=== PATIENT | male | born 1950 | race Caucasian/White ===

== ENCOUNTER → 2022-09-04 13:18 | Outpatient (CLI) | payer MEDICARE, SELFPAY ==
[2022-09-04 13:31] LABS: Microscopic, Urine URINE MICROSCOPIC (MICROSCOPIC)
[2022-09-04 14:10] LABS: Appearance,Urine CLEAR (Clear); Bilirubin,Urine Negative (Negative); Blood, Urine Negative (Negative); Color,Urine YELLOW (Yellow); Glucose,Urine (UA) TRACE (Negative); Ketones,Urine Negative (Negative); Leukocyte Esterase,Urine Negative (Negative); Nitrate,Urine Negative (Negative); Protein,Urine Negative (Negative)
[2022-09-04 14:16] LABS: Basophils # 0.1 K/mm3 (0-0.2); Basophils % 0.6 % (0.1-2.0); Eosinophils # 0.3 K/mm3 (0.0-0.4); Hematocrit 42.6 % (42.0-52.0); Hemoglobin 13.5 g/dL (14.1-18.0); Lymphocytes # 2.8 K/mm3 (0.7-4.5); Lymphocytes % 36.6 % (10-50); Mean Corpuscular HGB Conc 31.7 g/dL (31.8-35.4); Mean Corpuscular Hemoglobin 29.5 pg (27.0-31.2); Mean Corpuscular Volume 92.9 fl (80-94); Mean Platelet Volume 9.6 fl (7.4-10.4); Monocytes # 0.7 K/mm3 (0.1-1.0); Monocytes % 8.5 % (1.7-9.3); Neutrophils # 3.9 K/mm3 (1.8-7.8); Neutrophils % 50.4 % (37.0-80.0); Platelet Count 189 K/mm3 (142-424); Red Blood Count 4.58 M/mm3 (4.60-6.20); Red Cell Distribution Width 13.5 % (11.5-17.5); White Blood Count 7.7 K/mm3 (4.8-10.8)
[2022-09-04 14:55] LABS: Albumin Level 4.3 g/dl (3.5-5.0); Anion Gap 12.5 mEq/L (5-15); Blood Urea Nitrogen 26 mg/dl (9-20); Calcium 9.3 mg/dl (8.4-10.2); Carbon Dioxide 29 mmol/L (22.0-30.0); Chloride 104 mmol/L (98-107); Estimated Glomerular Filt Rate 50 ml/min (>60); GFR (African American) 60 ML/MIN (>60); Glucose 189 mg/dl (74-100); Phosphorous 4.4 mg/dl (2.5-4.5); Potassium 4.5 mmoL/L (3.5-5.1); Sodium 141 mmol/L (136-145)
[2022-09-04 17:56] LABS: Creatinine,Urine Random 126 mg/dL (Not Estab.)
== END ==
PROVIDERS: PCP Internal Medicine Nephrology; Visit Provider Pediatrics
DX: N28.9 Disorder of kidney and ureter, unspecified (principal)
CPT/HCPCS: 36415; 80069; 81001; 82570; 84155; 85025

== ENCOUNTER 2023-01-18 15:28 | Emergency (ER) | payer MEDICARE, SELFPAY ==
[2023-01-18 16:24] VITALS: BP 147/84; PULSE 89; RESP 18; TEMP 37.9; O2SAT 92; BMI 40.1
--- NOTE | 2023-01-18 16:26 | XR_ITS ---
PROCEDURE INFORMATION: Exam: XR Chest Exam date and time: 01/18/2023 4:26 PM Age: 72 years old Clinical indication: Cough; Additional info: Cough and SOB. Former smoker for 25 yrs. TECHNIQUE: Imaging protocol: Radiologic exam of the chest. Views: 2 views. COMPARISON: No relevant prior studies available. FINDINGS: Lungs: Unremarkable. No consolidation. Pleural spaces: Unremarkable. No pleural effusion. No pneumothorax. Heart/Mediastinum: Unremarkable. No cardiomegaly. Bones/joints: Unremarkable. IMPRESSION: No acute findings.
--- NOTE | 2023-01-18 16:27 | EXP.UTC ---
Discharge Plan Disposition Patient Disposition: Home, Self-Care Condition: Good Prescriptions Prescriptions: New benzonatate [benzonatate] 100 mg capsule 100 mg PO TIDP PRN (Reason: Cough) Qty: 30 0RF amoxicillin-pot clavulanate 875-125 mg Tablet 1 tab PO Q12H Qty: 20 0RF methylprednisolone 4 mg Tablets,Dose Pack 4 mg PO DIRECTED Qty: 21 0RF guaifenesin [Mucinex] 600 mg tablet extended release 12hr 600 - 1,200 mg PO BIDP PRN (Reason: Congestion) Qty: 30 0RF Referrals Follow up/Referrals: Nusrat Lamb APRN [Primary Care Provider] - See instructions Activity Restrictions/Add. Instructions Additional Instructions/Restrictions: Take tylenol for pain or fever. Take the medications as directed. Follow up with your regular doctor for a recheck on Saturday. GO TO THE ER FOR ANY WORSENING SYMPTOMS Clinical Impressions Clinical Impression: Acute bronchitis, Otitis media Instructions Patient Instructions: Middle Ear Infection, DI for Acute Bronchitis Discharge ED Provider: Tanvir Estrada [facility] General Stated complaint: fever, cough, cecilia Time Seen by Provider: 01/18/23 16:27 History of Present Illness Provider Complaint: He states that for the past 4 days he has had worsening chest and sinus congestion, bilateral ear pain, and a productive cough with yellowish sputum. He has had a low grade fever also. He denies any body aches. Related Data Previous Rx's Medication Instructions Recorded amoxicillin 875 mg-potassium 1 tab PO Q12H #20 tabs 01/18/23 clavulanate 125 mg tablet benzonatate 100 mg capsule 100 mg PO TIDP PRN Cough #30 caps 01/18/23 guaifenesin 600 mg tablet, 600 - 1,200 mg PO BIDP PRN 01/18/23 extended release 12 hr (Mucinex) Congestion #30 tabs methylprednisolone 4 mg tablets in 4 mg PO DIRECTED #21 tabs 01/18/23 a dose pack Allergies Allergy/AdvReac Type Severity Reaction Status Date / Time triethanolamine AdvReac Mild Rash Verified 01/18/23 16:37 [From Cerumenex] [facility] Disclaimer: The information contained in this section may have been updated after the patient was seen, as this information can be updated by other users. Social History Smoking Status: Former smoker alcohol intake: never current occupational status: retired Travel in the last 8 weeks: None ROS Obtained: Yes All systems reviewed & no additional complaints except as documented Constitutional Constitutional: Reports poor appetite Eyes Eyes: Reports system reviewed and no additional complaints, except as documented ENT Ears, Nose, Mouth, and Throat: Reports as per HPI Cardiovascular Cardiovascular: Reports system reviewed and no additional complaints, except as documented and Denies chest pain Respiratory Respiratory: Denies shortness of breath, Reports chest congestion, Reports cough, Denies stridor and Denies wheezing Gastrointestinal Gastrointestingal: Reports system reviewed and no additional complaints, except as documented; Denies abdominal pain, diarrhea or vomiting Musculoskeletal Musculoskeletal: Reports system reviewed and no additional complaints, except as documented and Denies arthralgias Integumentary/Breasts Skin/Breast: Reports system reviewed and no additional complaints, except as documented and Denies rash Neurologic Neurologic: Denies paresthesias Allergic/Immunologic Allergic/Immunologic: Denies wheezing Physical Exam General General appearance: alert and in no apparent distress Head Head exam: atraumatic, normocephalic and normal inspection Eye Eye exam: Present normal appearance, PERRL and EOMI ENT ENT exam: Present mucous membranes moist and normal external ear exam Expanded ENT Exam TM/Canal exam: Bilateral TM: erythema, bulging and effusion Nose exam: Absent sinus tenderness Nasal speculum exam: Bilateral: normal Mouth exam: Present normal external inspection; Absent drooling Teeth exam: Present normal inspection Throat exam: P
[2023-01-18 17:24] VITALS: BP 147/84; PULSE 89; RESP 18; TEMP 37.4; O2SAT 94
== END 2023-01-18 17:24 | disposition home or self-care (01) ==
PROVIDERS: Emergency Provider Nurse Practitioner Family; PCP Nurse Practitioner
DX: J20.9 Acute bronchitis, unspecified (principal); H66.93 Otitis media, unspecified, bilateral; R50.9 Fever, unspecified; R05.9 Cough, unspecified; R09.81 Nasal congestion; R09.89 Other specified symptoms and signs involving the circulatory and respiratory systems; Z87.891 Personal history of nicotine dependence
CPT/HCPCS: 71046; 87635; 99204; 99212; G0463

== ENCOUNTER 2023-03-01 13:42 | Emergency (ER) | payer MEDICARE, SELFPAY ==
[2023-03-01 14:05] VITALS: BP 138/71; PULSE 73; RESP 20; TEMP 36.7; O2SAT 96; BMI 39.9
--- NOTE | 2023-03-01 14:11 | ED_ITS ---
Discharge Plan Disposition Patient Disposition: Home, Self-Care Condition: Good Prescriptions Prescriptions: No Action benzonatate [benzonatate] 100 mg capsule 100 mg PO TIDP PRN (Reason: Cough) Qty: 30 0RF amoxicillin-pot clavulanate 875-125 mg Tablet 1 tab PO Q12H Qty: 20 0RF methylprednisolone 4 mg Tablets,Dose Pack 4 mg PO DIRECTED Qty: 21 0RF guaifenesin [Mucinex] 600 mg tablet extended release 12hr 600 - 1,200 mg PO BIDP PRN (Reason: Congestion) Qty: 30 0RF Referrals Follow up/Referrals: Elan Fields DO [Staff Physician] - See instructions Sean Dotson [Primary Care Provider] - See instructions Activity Restrictions/Add. Instructions Additional Instructions/Restrictions: Rest the extremity, apply ice for 15 minutes as tolerated three or four times per day, Elevate the extremity as tolerated while you are resting. Take tylenol or ibuprofen for pain. Follow up with Dr. Fields (orthopedics). I put in a referral but you need to call his office and schedule an appointment. Follow up with your regular doctor. GO TO THE ER FOR ANY WORSENING SYMPTOMS Clinical Impressions Clinical Impression: Right knee sprain Instructions Patient Instructions: How to Use Crutches, Knee Sprain, DI for Knee Sprain, How to Use a Knee Immobilizer Discharge ED Provider: Tanvir Estrada [facility] General Stated complaint: AO Fell, Pain in R knee Time Seen by Provider: 03/01/23 14:11 History of Present Illness Provider Complaint: He states that he stepped on an uneven floor and it caused him to fall. He came down on his right knee. He c/o right knee pain. He denies any other injury. Related Data Previous Rx's Medication Instructions Recorded amoxicillin 875 mg-potassium 1 tab PO Q12H #20 tabs 01/18/23 clavulanate 125 mg tablet benzonatate 100 mg capsule 100 mg PO TIDP PRN Cough #30 caps 01/18/23 guaifenesin 600 mg tablet, 600 - 1,200 mg PO BIDP PRN 01/18/23 extended release 12 hr (Mucinex) Congestion #30 tabs methylprednisolone 4 mg tablets in 4 mg PO DIRECTED #21 tabs 01/18/23 a dose pack Allergies Allergy/AdvReac Type Severity Reaction Status Date / Time triethanolamine AdvReac Mild Rash Verified 01/18/23 16:37 [From Cerumenex] [facility] Disclaimer: The information contained in this section may have been updated after the patient was seen, as this information can be updated by other users. Medical History (Updated 03/01/23 @ 15:52 by Tanvir Estrada APRN) Anxiety Depression Diabetes mellitus, type 2 History of gastroesophageal reflux (GERD) Hyperlipidemia Hypertension Surgical History (Updated 03/01/23 @ 14:14 by Janel Higgins RN) History of cardiac cath History of cholecystectomy Social History (Updated 01/18/23 @ 17:32 by Tanvir Estrada APRN) Smoking Status: Former smoker alcohol intake: never current occupational status: retired Travel in the last 8 weeks: None ROS Obtained: Yes All systems reviewed & no additional complaints except as documented Constitutional Constitutional: Denies chills and Denies fever(s) Eyes Eyes: Denies eye discharge ENT Ears, Nose, Mouth, and Throat: Denies dizziness, Denies otalgia and Denies sore throat Cardiovascular Cardiovascular: Denies chest pain Respiratory Respiratory: Denies shortness of breath, Denies chest congestion, Denies cough, Denies stridor and Denies wheezing Gastrointestinal Gastrointestingal: Denies nausea or vomiting Musculoskeletal Musculoskeletal: Reports as per HPI Integumentary/Breasts Skin/Breast: Denies rash Neurologic Neurologic: Denies dizziness and Denies paresthesias Allergic/Immunologic Allergic/Immunologic: Denies wheezing Physical Exam General General appearance: alert and in no apparent distress Head Head exam: atraumatic, normocephalic and normal inspection Eye Eye exam: Present normal appearance, PERRL and EOMI ENT ENT exam: Present normal exam, normal oropharynx, mucous membranes moist, TM's normal bilaterally and normal external ear exam Neck Neck exam: Present normal inspection, full ROM and trachea midline; Absent meningismus or lymphadenopathy Chest Chest inspection: Present normal inspection and symmetric chest wall rise; Absent tenderness Respiratory Respiratory exam: Present normal lung sounds bilaterally; Absent respiratory distress Cardiovascular Cardiovascular exam: Present regular rate and normal rhythm; Absent JVD Abdominal Exam Abdominal exam: Present soft and normal bowel sounds; Absent distention, tenderness or guarding Extremities Exam Extremities exam: Present normal capillary refill; Absent calf tenderness Expanded Lower Extremity Exam Right: Hip/Pelvis exam: Present normal inspection and full ROM; Absent tenderness Upper leg exam: Present normal inspection and full ROM; Absent tenderness Knee exam: Present tenderness, swelling and knee extension intact; Absent abrasion, laceration, ecchymosis, deformity, crepitus, dislocation, erythema, effusion, anterior drawer sign, posterior draw sign, pain with valgus, laxity with valgus, pain with varus or laxity with varus Lower leg exam: Present normal inspection and full ROM; Absent tenderness Ankle exam: Present normal inspection and full ROM; Absent tenderness Foot/toe exam: Present normal inspection and full ROM; Absent tenderness Neurovascular/Tendon exam: Present normal capillary refill; Absent pulse deficit, motor deficit, sensory deficit, tendon deficit or extremity cold to touch Gait: observed and limited by pain Back Exam Back exam: Present normal inspection; Absent tenderness Neurological Exam Neurological exam: Present alert and oriented X3 Psychiatric Psychiatric exam: Present normal affect and normal mood Skin Skin exam: Present warm, dry, intact and normal color Lymphatic Lymphatic Findings: no adenopathy Medical Decision Making Medical Records Medical records reviewed: No I reviewed the patient's medical records. Roberto Inquiry Pt receiving controlled substance: No Radiology Data #1: Image(s): Knee Image Reviewed: Yes I reviewed the patient's radiology image and Yes I have reviewed radiologist's interpretation Preliminary Findings: No Fracture Seen FINAL REPORT CLINICAL HISTORY: Right knee pain after fall COMPARISON: None FINDINGS: Three views of the right knee reveal no evidence of fracture or dislocation. The bony alignment is normal. There is mild degenerative change. There is no evidence of joint effusion. Vascular calcifications are noted. No acute localized soft tissue abnormality is identified. IMPRESSION: No acute abnormality identified. Reviewed, Interpreted and Dictated by Edwin Rehman III, MD Transcribed by Shantel Duque Authenticated and [facility] Procedures Risk/Benefits of Procedure(s) Were Explained: Yes Orthopedic Splinting/Casting Injury #1: Side: right Lower Extremity Injury Location: knee Lower Extremity Immobilizer: knee immobilizer Other Orthopedic Equipment: crutches Post Cast/Splinting Neuro Status: intact and no change Post Cast/Splinting Vasc Status: intact and no change
[2023-03-01 15:40] VITALS: BP 138/71; PULSE 73; RESP 20; TEMP 36.7; O2SAT 96
== END 2023-03-01 15:58 | disposition home or self-care (01) ==
PROVIDERS: Emergency Provider Nurse Practitioner Family; PCP Pediatrics
DX: S83.91XA Sprain of unspecified site of right knee, initial encounter (principal); E11.9 Type 2 diabetes mellitus without complications; I10 Essential (primary) hypertension; E78.5 Hyperlipidemia, unspecified; K21.9 Gastro-esophageal reflux disease without esophagitis; Z87.891 Personal history of nicotine dependence; W19.XXXA Unspecified fall, initial encounter
CPT/HCPCS: 73562; 99212; 99214; G0463

== ENCOUNTER 2023-05-09 10:00 | Outpatient (RCR) | payer MEDICARE, SELFPAY | END 2023-05-09 11:15 | disposition home or self-care (01) | LOC: PT 10:00 | PROVIDERS: PCP Nurse Practitioner; Visit Provider Nurse Practitioner | DX: M54.42 Lumbago with sciatica, left side (principal); M54.41 Lumbago with sciatica, right side | CPT/HCPCS: 97110; 97112; 97116; 97163; 97164; 97530 ==

== ENCOUNTER 2023-05-14 08:56 | Outpatient (CLI) | payer MEDICARE, SELFPAY ==
--- NOTE | 2023-05-14 09:04 | XR_ITS ---
FINAL REPORT CLINICAL HISTORY: Rt Hand Pain..rt 3rd finger x 1 month FINDINGS: Right hand Three views were obtained. There is no acute fracture or dislocation. There is mild DIP and PIP joint space narrowing. There is soft tissue swelling over the dorsum of the hand. There are advanced hypertrophic changes at the basilar joint with subluxation of the 1st carpometacarpal joint. No soft tissue abnormality is identified. IMPRESSION: Degenerative changes as detailed above. Reviewed, Interpreted and Dictated by Tarik Thomas MD Transcribed by Arabella Ledezma Authenticated and [facility]
== END 2023-05-14 23:59 ==
LOC: RAD 08:57
PROVIDERS: PCP Internal Medicine; Visit Provider Orthopaedic Surgery
DX: M79.641 Pain in right hand (principal)
CPT/HCPCS: 73130

== ENCOUNTER 2024-03-19 13:32 | Outpatient (CLI) | payer MEDICARE, SELFPAY ==
--- NOTE | 2024-03-19 13:39 | CA_ITS ---
APPROVED REPORT EXAM: Comprehensive 2D, Doppler, and color-flow Echocardiogram [employer] Porter: Dona Cooley RVT Ht: 5 ft 10 in Wt: 280lbs BSA: 2.41 BP: 138/84 mmHg Indications: MILD ,HTN, HLD, DM, TDE POOR U/S WINDOWS, LIMITED IMAGES 2D Dimensions IVSd 1.90 cm LVEF (Visual) 51.40 % PWd 1.12 cm LA Volume 29.40 mL LVDd 4.20 cm LA Volume Index 11.90 mL/m2 (M/F) 16-34 LVDs 3.11 cm M-Mode Dimensions LA Diam 3.86 cm (1.9-4.0) TAPSE 1.98 (<1.7) LV Diastology E Decel Time 193 (160-240 msec) E/A Ratio 0.73 Aortic Valve ANGELICA Index 0.51 cm2/m2 AoV Peak Cal. 269.0 (50-130 cm/s) AO Peak GR. 29.00 mmHg AO Mean GR. 17.70 (<5 mmHg) AO VTI 63.3 (18-25 cm) ANGELICA (VTI) 1.25 (2.5-4.5 cm2) Mitral Valve MV E Max Cal. 69.0 (40-130 cm/s) MV A Velocity 96.0 (40-130 cm/s) E/A Ratio 0.73 MV PHT 57.0 ms Pulmonary Valve PV Peak Velocity 69.0 (50-150 cm/s) Tricuspid Valve TR P. Velocity 216.00 cm/s RAP Estimate 10.00 mmHg RVSP 28.60 mmHg Left Ventricle The left ventricle is normal size. The left ventricular systolic function is low normal. There is increased LV wall thickness. There is normal LV segmental wall motion. Transmitral Doppler flow pattern suggests impaired LV relaxation. LVEF is 50%. Right Ventricle The right ventricle is normal size. The right ventricular systolic function is normal. Atria The left atrium size is normal. The right atrium size is normal. There is no Doppler evidence of interatrial shunt. Aortic Valve Aortic valve is moderately thickened. Mild to moderate aortic stenosis. ANGELICA by continuity equation is 1.5 cm2. Peak velocity 2.8 m/s. Mean AV gradient 14 mmHg. Max AV gradient 25 mmHg. Trace aortic regurgitation. Mitral Valve The mitral valve leaflets are mildly thickened. Trace mitral regurgitation. No evidence of mitral valve stenosis. Tricuspid Valve Tricuspid valve is grossly normal in structure and function. Trace tricuspid regurgitation. There is insufficient TR jet to estimate RVSP. Pulmonic Valve The pulmonary valve is normal in structure. Trace pulmonic regurgitation. The ascending aorta is not well-visualized. Great Vessels The aortic root is normal in size. IVC is normal in size and collapses >50% with inspiration. Pericardium There is no pericardial effusion. Other Information Study Quality: Technically Difficult Conclusion Technically difficult study due to poor acoustic windows. Low normal LV systolic function (LVEF 50%). Normal RV size and function. Mild to moderate (ANGELICA by continuity equation is 1.5 cm2. Peak velocity 2.8 m/s. Mean AV gradient 14 mmHg. Max AV gradient 25 mmHg). Electronically signed by : Zaida Nevarez MD 03/29/2024 19:37:18
== END 2024-03-19 23:59 | disposition home or self-care (01) ==
LOC: RT 13:35
PROVIDERS: PCP Nurse Practitioner; Visit Provider Nurse Practitioner
DX: I35.0 Nonrheumatic aortic (valve) stenosis (principal)
CPT/HCPCS: 93306

== ENCOUNTER 2024-09-07 09:42 | Outpatient (CLI) | payer MEDICARE, SELFPAY ==
--- OUTSIDE RECORDS SUMMARY | 2022-05-11 07:15 | XMS_ITS | Continuity of Care Document ---
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 Role Phone Yaw Kaiser MD Unavailable Unavailabl e Allergies, Adverse Reactions, Alerts Substance Reaction Status Criticality No Known Allergies Active No Inform ation Procedures Procedure Date OFFICE/OUTPATIENT VISIT, [facility] Advance Directives Directive Yes / No Effective Date File Name No Information Encounters Encounter Description Practice Location Reason(s) For Visit Diagnoses Date Provider Providers Copied on Encounter OFFICE/OUTPAT IENT VISIT, [facility], [address], [place], [place], [id number], tel:[phone] [facility] Leg Pain (chief complaint) Back Pain (chief complaint) Other intervertebral disc displacement, lumbar regionSpinal stenosis, lumbar region with neurogenic claudicationSci atica, left side 3 Job Campbell er. [address], [address], [place], [place], [id number] , [place]. tel:[phone] Referring Provider: Kane Brandt MD, [address], [place], [address]. tel:[phone] [facility], [address], [place], [place], [id number], [place] tel:[phone] [facility] Back pain Apr- 3 Job Campbell er. [address], [place], [place], [id number] , [place]. tel:[phone] Family History Family Member Type Diagnosis Age At Onset Father Problem (finding) Diabetes Mother Problem (finding) Diabetes Father Problem (finding) Congestive heart failur e Father Problem (finding) Hypertension Payers Payer name Insurance type Covered libertarian ID uJliet gunderson(s) [employer] Medicare Complete HMO [id number] Social History Type Description Quantity Date Captured Comments Alcohol Use Details Caffeine Use Details Tobacco Use Status Current non-smoker Smoking Status Former smoker Non-Smoking Tobacco Use Details : No Details Available : No Details Available : No Details Available : No Details Available Sex Male Vital Signs Date / Time: Height Weight BMI Pulse Rate Blood Pressure Temperature Respiratory Rate Body Surface Area Head Circumference Head Circ. Percentile Wt./Rick. Percentile BMI percentile Pulse Ox Inhaled Ox 11:32 AM 70.00 in 113.398 kg (250.00 lbs) 35.8 7 kg/m amada (2) Chief Complaint And Reason For Visit From encounter dated '05/11/2022 11:15'. Leg Pain (chief complaint). Description: Severity level is 9. The problem is worsening. It occurs persistently. Location of pain is lower back, gluteal area, left flank, legs and thighs. Pain is radiated to the back and left thigh.The patient describes the pain as an ache, burning, discomforting, dull, numbness and throbbing. Symptoms are aggravated by bending, changing positions, daily activities, flexion, rolling over in bed, twisting, walking and Driving. Symptoms are relieved by over the counter medication: Tylenol and pain meds/drugs. Associated symptoms include decreased mobility, loss of balance, numbness in the left leg, spasms, tenderness, tingling in the legs and weakness in the left leg. Pertinent negatives include bladder incontinence, bowel incontinence, diarrhea and rash. Additional information: MRI@ - pt had ALLA done on Saturday, he could not tolerate the procedure and they did not finish it, done at . Back Pain (chief complaint) Reason For Referral Reason For Referral No Information Plan Of Treatment Date Type Action Status Referral Ordered: Lumbosacral Min 4 Views, Include Flexion/Extension, Not Obliques, Weight-Bearing ordered History Of Present Illness Encounter Date Complaint History Of Prese nt Illness Leg Pain Back Pain Functional Status Date Functional Assessmen t No Information Instructions Date Instruction Additional Infor rebecca Pt presents for prim lilibeth complaint of pain down the left leg and inability to walk/stand for long periods of time. He went to the ER 2 days ago for the severe pain. He was not able to tolerate and ALLA due to the pain.The following studies were independently reviewed and interpreted. Our interpretation follows below:MRI revealed L3-4 large central HNP with epidural lipomatosis and severe stenosisBased on MRI, clinical history and physical exam, we discussed management options. The patient is a candidate for an L3-4 hemilaminotomy via a left sided approach with discectomy. This would decompress the effected nerve roots. Due to severe pain and weakness this surgery is needed as soon as possible.Continued conservative measures discussed with patient vs surgical intervention. Surgical risks/benefits/alternatives were discussed. Options explained in detail to patient and all questions were answered. Patient elected to proceed with above surgery.Questions answered for patient who agrees with above treatment plan.He does have a history of cardiac cath and will need cardiac clearance. Related to Sciatica, left side Assessments Type Assessment Date assessment Other intervertebral disc displa cement, lumbar region assessment Spinal stenosis, lumbar region w ith neurogenic claudication assessment Sciatica, left side impression 1. L3-4 large centra l HNP with epidural lipomatosis and severe stenosis2. Left LE radiculopathy/neurogenic claudication Patient Care Teams Name Effective Dates (start - stop) Status Members No Information
--- OUTSIDE RECORDS SUMMARY | 2024-08-13 13:30 | XMS_ITS | Encounter Summary ---
Author Organization [facility] Address [address] [place] [address] Care Team Providers Care Shearing Supervisor Name Role Phone Nusrat Lamb APRN Primary Care Provider [phone] Reason for Visit * Reason Comments Medicare Wellness-subsequent Encounter Details Date Type Department Care Team (Late st Contact Info) Description 08/13/2024 1:30 PM EDT Office Visit [facility] [address] [place] [phone] Nusrat Lamb APRN [address] [place] [address] Type 2 diabetes mellitus with hyperglycemia, with long-term current use of insulin (Primary Dx); Benign prostatic hyperplasia with weak urinary stream; Coronary artery disease involving gila river coronary artery of gila river heart without angina pectoris; Gastric banding status; History of smoking; Mixed hyperlipidemia; Lumbar radiculopathy; Morbid (severe) obesity due to excess calories; Obstructive sleep apnea; Primary hypertension; Primary insomnia; Stage 3a chronic kidney disease; Valvular heart disease; Medicare annual wellness visit, subsequent; Prostate cancer screening; Gastroesophageal reflux disease without esophagitis; Spinal stenosis, lumbar region, with neurogenic claudication Social History Tobacco Use Types Packs/Day Years Used Date Smoking Tobacco: Former Cigarettes 1.4 49.9 0 02/19/1972 - 02/18/1998 Smokeless Tobacco: Never Alcohol Use Standard Drinks/Week Comments Not Currently 0 (1 standard drink = 0.6 oz pur e alcohol) [facility] Utilities Answer Date Recorded In the past 12 months has TOM[employer], oil, or water [employer] threatened to shut off services in your home? No 07/26/2024 Humiliation, Afraid, Rape, and Kick questionnair e Answer Date Recorded Within the last year, have y ou been afraid of your partner or ex-partner? No 07/26/2024 Within the last year, have y ou been humiliated or emotionally abused in other ways by your partner or ex-partner? No 07/26/2024 Physically Abused Not on file 07/26/2024 Within the last year, have y ou been raped or forced to have any kind of sexual activity by your partner or ex-partner? No 07/26/2024 Social Connection and Isolation Panel [NHANES] A nswer Date Recorded In a typical week, how many times do you talk on the phone with family, friends, or neighbors? Three times a week 07/26/2024 How often do you get togethe r with friends or relatives? Never 07/26/2024 How often do you attend chur or temple services? Never 07/26/2024 Do you belong to any clubs o r organizations such as denominational groups, unions, fraternal or athletic groups, or school groups? No 07/26/2024 How often do you attend meet ings of the clubs or organizations you belong to? Never 07/26/2024 Marital Status Not on file 07/26/2024 AUDIT-C Answer Date Recorded Q1: How often do you have a drink containing alcohol? Never 07/26/2024 Q2: How many drinks containi ng alcohol do you have on a typical day when you are drinking? Patient does not drink Frequency of Binge Drinking Not on file 09/2024 Overall Financial Resource Strain (CARDIA) Answe r Date Recorded How hard is it for you to pa y for the very basics like food, housing, medical care, and heating? Somewhat hard 07/26/2024 PHQ-2 Answer Date Recorded Retired PHQ-9: Brief Depression Severity Measure Score 0 10/04/2022 [facility] [place] [facility] - Occupational Stress Questionnaire Answer Date Recorded Do you feel stress - tense, restless, nervous, or anxious, or unable to sleep at night because your mind is troubled all the time - these days? Rather much 07/26/2024 Exercise Vital Sign Answer Date Recorde d On average, how many days pe r week do you engage in moderate to strenuous exercise (like a brisk walk)? 1 day Minutes of Exercise per Session Not on file 07/26/2024 Hunger Vital Sign Answer Date Recorded Within the past 12 months, y ou worried that your food would run out before you got the money to buy more. Never true 07/27/19 25 Within the past 12 months, t he food you bought just didn't last and you didn't have money to get more. Never true 07/26/2024 PRAPARE - Transportation Answer Date Re corded In the past 12 months, has l ack of transportation kept you from medical appointments or from getting medications? Yes 09/2024 In the past 12 months, has l ack of transportation kept you from meetings, work, or from getting things needed for daily living? No 07/26/2024 Housing Stability Vital Sign Answer Josef e Recorded In the last 12 months, was t here a time when you were not able to pay the mortgage or rent on time? No 07/26/2024 In the past 12 months, how m any times have you moved where you were living? 0 07/26/2024 At any time in the past 12 m [facility], were you homeless or living in a senior living (including now)? No 07/26/2024 Housing Stability Answer Date Recorded Current Living Arrangements home 05/2024 Potentially Unsafe Housing Conditions Not on wilberto e 03/24/2024 Amb Case Mgmt Answer Date Recorded Help with Reading Health-Related Information occ asionally 07/26/2024 Problems Learning about Medical Condition never 07/26/2024 Confidence in Filling Out Forms by Self never 07/26/2024 Employment Answer Date Recorded Do you want help finding or keeping work or a job? I do not need or want help 07/26/2024 Disabilities Answer Date Recorded Difficulty Concentrating, Remembering or Making Decisions yes 07/26/2024 Difficulty Managing Errands Independently no 07/26/2024 PHQ-2 Answer Date Recorded Patient Health Questionnaire-2 Score 0 08/13/2024 Sex and Gender Information Value Date Recorded Sex Assigned at Male 04/20/2023 11:33 AM EST Legal Sex Male 10:45 AM EDT Gender Identity Male 04/20/2023 11:33 AM EST Sexual Orientation Not on file documented as of this encounter Last Filed Vital Signs Vital Sign Reading Time Taken Comments Blood Pressure 122/74 08/13/2024 1:18 PM EDT Pulse 92 08/13/2024 1:18 PM EDT Temperature 37.2 C (99 F) 08/13/2024 1:18 PM EDT Respiratory Rate 18 08/13/2024 1:18 PM EDT Oxygen Saturation 98% 08/13/2024 1:18 PM EDT Inhaled Oxygen Concentration - - Weight 126 kg (278 lb) 08/13/2024 1:18 PM EDT Height 177.8 cm (5' 10 ) 08/13/2024 1:18 PM EDT Body Mass Index 39.89 08/13/2024 1:18 PM EDT documented in this encounter Functional Status documented as of this encounter Progress Notes * Nusrat Lamb APRN - 08/24/2024 10:13 PM EDTAssociated Problem(s): Spinal stenosis, lumbar region, with neurogenic claudication He has been evaluated by neurosurgery and pain management for his spinal stenosis. Neurosurgery wanted to avoid surgical intervention due to his weight and uncontrolled A1c, per their report based off of his MRI he does have some advanced level degenerative changes in the L3-4 facets. He was subsequently referred to physical therapy which has helped his pain and mobility issues significantly. * Nusrat Lamb APRN - 08/24/2024 10:13 PM EDTAssociated Problem(s): Lumbar radiculopathy Patient was followed and approved for neurosurgery prior to leaving [place]. MRI reviewed in officetoday showing L3-5 circumferential disc bulging, ligamentum flavum infolding and facet arthropathy contributing to left subarticular zone impingement of the traversing L5 nerve root, mild spinal canal stenosis and mild bilateral neural foraminal stenosis. Was evaluated by neurosurgery at [facility] who declined surgery at this time, receiving benefit from pain management * Nusrat Lamb APRN - 08/24/2024 10:12 PM EDTAssociated Problem(s): Type 2 diabetes mellitus with hyperglycemia, with long-term current use of insulin Patient has now established care with endocrinology. They added SGLT-2 jardiance at 10mg daily. Continued ozempic 1mg weekly, lantus 80mg nightly. Diabetic foot exam stable. No confirmed retinopathy * Nusrat Lamb APRN - 08/24/2024 10:10 PM EDTAssociated Problem(s): Stage 3a chronic kidney disease Patient has been followed by [facility] with a baseline creatinine noted timi 1.5-1.6 range, GFR 47. Rechecking metabolic panel today * Nusrat Lamb APRN - 08/24/2024 10:07 PM EDTAssociated Problem(s): Primary insomnia Longstanding pattern of insomnia, he is utilizing lorazepam nightly with good benefit for a number of years. He states that he is having some issues with his neuropathy in his feet worsening at bedtime but this will respond well to extra dose of lorazepam. He has experienced poor response in the past to medication such as trazodone, Ambien and Lunesta. Reviewed Roberto with satisfactory findings. He has controlled substance agreement and up-to-date UDS on file * Nusrat Lamb APRN - 08/24/2024 10:07 PM EDTAssociated Problem(s): Primary hypertension BP well controlled in office today, 122/74. Continue amlodipine 10mg daily, HCTZ 25mg daily, metoprolol 100mg BID * Nusrat Lamb APRN - 08/24/2024 10:06 PM EDTAssociated Problem(s): Obstructive sleep apnea Patient reports better compliance with PAP uses after getting a new, smaller PAP mask * Nusrat Lamb APRN - 08/24/2024 10:06 PM EDTAssociated Problem(s): Morbid (severe) obesity due to excess calories Patient's (Body mass index is 39.89 kg/m .) indicates that they are obese (BMI >30) with healthconditions that include obstructive sleep apnea, hypertension, coronary heart disease, diabetes piter itus, dyslipidemias, and GERD . Weight is unchanged. BMI is above average; BMI management plan is completed. We discussed portion control and increasing exercise. * Nusrat Lamb APRN - 08/24/2024 10:05 PM EDTAssociated Problem(s): Hyperlipidemia Patient continues to utilize daily fenofibrate 160mg and atorvastatin 40mg daily. Rechecking lipidstoday. * Nusrat Lamb APRN - 08/24/2024 10:04 PM EDTAssociated Problem(s): History of smoking Patient 1 pack/day smoker for 20 years, stopped in 1998 * Nusrat Lamb APRN - 08/24/2024 10:04 PM EDTAssociated Problem(s): GERD (gastroesophageal reflux disease) Patient's insurance stopped covering pantoprazole, subsequently he had developed heartburn. Insurance ultimately did approve restarting pantoprazole with complete resolution of his GERD * Nusrat Lamb APRN - 08/24/2024 10:01 PM EDTAssociated Problem(s): Coronary artery disease involving gila [place] coronary artery of gila river heart with out angina pectoris Cardiac catheterization Result Date: 03/31/2022 Chronic total occlusion to the LAD extending from the ostium to the distal vessel and fed by collaterals from the RCA Mild nonobstructive coronary artery disease involving the proximal LCx and proximal to mid RCA. Mildly elevated LVEDP at 24 mmHg Successful TR band closure to the right radial arterial access. * Nusrat Lamb APRN - 08/24/2024 10:01 PM EDTAssociated Problem(s): Benign prostatic hyperplasia with weak urinary stream Approximately one year ago patient had complaints of frequent nighttime urination, approximately 3-4 episodes. He also noted weak in urinary stream and urgency. He denies any feelings of urinary retention, hematuria or urinary obstruction. He was initiated on tamsulosin 0.5 mg nightly which she states has given him full resolution of his symptom * Nusrat Lamb APRN - 08/13/2024 1:30 PM EDT The ABCs of the Annual Wellness Visit Subsequent Medicare Wellness Visit Chief Complaint Patient presents with Medicare Wellness-subsequent Subjective History of Present Illness: Anthony Jacob is a 73 y.o. male who presents for a Subsequent Medicare Wellness Visit and annual physical exam. The following portions of the patient's history were reviewed and updated as appropriate: allergies, current medications, past family history, past medical history, past social history, past surgical history, and problem list. Compared to one year ago, the patient feels his physical health is better. Compared to one year ago, the patient feels his mental health is better. Recent Hospitalizations: He was not admitted to the hospital during the last year. Current Medical Providers: Patient Care Team: Nusrat Lamb APRN as PCP - General (Family Medicine) Sotero Dillon MD as Consulting Physician (Endocrinology) Shruthi Dubois, RN as Ambulatory Furnishings Conservator ([facility]) Shameka Redmond PA as Physician Conveyor Attendant (Endocrinology) Ivory Butterfield DPM (Podiatry) Stevan Ramey II, MD (Pain Medicine) Tricia Law APRN as Nurse Practitioner (Nurse Practitioner) Outpatient Medications Prior to Visit Medication Sig Dispense Refill amLODIPine (NORVASC) 10 MG tablet TAKE 1 TABLET EVERY DAY 90 tablet 3 aspirin 81 MG oral suspension atorvastatin (LIPITOR) 40 MG tablet TAKE 1 TABLET EVERY DAY 90 tablet 3 Blood Glucose Monitoring Suppl (D-Care Glucometer) w/Device kit 1 kit 3 (Three) Times a Day. Indications: may substitute for any glucometer kit that is approved and availabe 1 kit 0 Continuous Glucose Sensor (Dexcom G6 Sensor) Use Every 10 (Ten) Days. 3 each 2 empagliflozin (Jardiance) 10 MG tablet tablet Take 1 tablet by mouth Daily. 90 tablet 3 fenofibrate 160 MG tablet Take 1 tablet by mouth Daily. glipizide (GLUCOTROL) 10 MG tablet TAKE 1 TABLET TWICE DAILY BEFORE MEALS 180 tablet 3 hydroCHLOROthiazide 25 MG tablet TAKE 1 TABLET EVERY DAY 90 tablet 3 Insulin Glargine (Lantus SoloStar) 100 UNIT/ML injection pen Inject 80 Units under the skin into the appropriate area as directed Every Night. INJECT 60 TO 80 UNITS UNDER THE SKIN ONE TIME DAILY DIRECTED 15 mL 3 Lancets (onetouch ultrasoft) lancets Take blood sugar once daily E11.9 100 each 2 LORazepam (ATIVAN) 2 MG tablet TAKE 1 TABLET EVERY 6 HOURS NEEDED FOR ANXIETY 60 tablet 0 magnesium oxide (MAG-OX) 400 MG tablet Take 1 tablet by mouth 2 (Two) Times a Day. metoprolol tartrate (LOPRESSOR) 100 MG tablet Take 1 tablet by mouth Daily. (Patient taking differently: Take 1 tablet by mouth 2 (Two) Times a Day.) 30 tablet 2 multivitamin with minerals tablet tablet Take 1 tablet by mouth Daily. Centrum Senior GlucoRevive ([place] and cinnamon) nystatin (MYCOSTATIN) 060702 UNIT/GM cream APPLY TOPICALLY TO THE APPROPRIATE AREA DIRECTED 2 (TWO) TIMES A DAY. 30 g 11 olopatadine (PATANOL) 0.1 % ophthalmic solution Administer 1 drop to both eyes 2 (Two) Times a Day.5 mL 6 pantoprazole (PROTONIX) 40 MG EC tablet Take 1 tablet by mouth Daily. 90 tablet 1 pregabalin (LYRICA) 150 MG capsule TAKE 1 CAPSULE EVERY 12 HOURS 180 capsule 0 sertraline (ZOLOFT) 50 MG tablet TAKE 1 TABLET EVERY DAY 90 tablet 3 tamsulosin (FLOMAX) 0.4 MG capsule 24 hr capsule TAKE 1 CAPSULE EVERY DAY 90 capsule 3 tiZANidine (ZANAFLEX) 4 MG tablet TAKE 1 TABLET AT NIGHT NEEDED FOR MUSCLE SPASM(S) 90 tablet 3 glucose blood (True Metrix Blood Glucose Test) test strip TEST BLOOD SUGAR TWO TIMES DAILY 100 each2 Semaglutide, 1 MG/DOSE, (OZEMPIC) 2 MG/1.5ML solution pen-injector Inject 1 mg under the skin into the appropriate area as directed 1 (One) Time Per Week. 1.5 mL 3 No facility-administered medications prior to visit. No opioid medication identified on active medication list. I have reviewed chart for other potential high risk medication/s and harmful drug interactions in the elderly. Aspirin is on active medication list. Aspirin use is indicated based on review of current medical condition/s. Pros and cons of this therapy have been discussed today. Benefits of this medication outweigh potential harm. Patient has been encouraged to continue taking this medication. . Patient Active Problem List Diagnosis Incomplete cauda equina syndrome Lumbar radiculopathy Type 2 diabetes mellitus with hyperglycemia, with long-term current use of insulin Stage 3a chronic kidney disease History of smoking Primary hypertension Hyperlipidemia Heart murmur Primary insomnia Spinal stenosis, lumbar region, with neurogenic claudication Fungal infection of the groin Obstructive sleep apnea Annual physical exam Aortic stenosis, mild Coronary artery disease involving gila river coronary artery of gila river heart without angina pectoris Other constipation Acute mucoid otitis media of both ears Yeast dermatitis Morbid (severe) obesity due to excess calories Benign prostatic hyperplasia with weak urinary stream Gastric banding status GERD (gastroesophageal reflux disease) Hip pain, right Osteoarthritis of hip Valvular heart disease Advance Care Planning Advance Directive is not on file. ACP discussion was held with the patient during this visit. Patient has an advance directive (not in EMR), copy requested. Review of Systems Constitutional: Negative for chills, fatigue and fever. HENT: Positive for hearing loss. Negative for trouble swallowing. Eyes: Negative for visual disturbance. Respiratory: Negative for cough and shortness of breath. Cardiovascular: Negative for chest pain, palpitations and leg swelling. Gastrointestinal: Negative for abdominal pain, constipation and diarrhea. Endocrine: Positive for polydipsia and polyuria. Genitourinary: Positive for genital sores. Negative for decreased urine volume, difficulty urinating, discharge and urgency. Musculoskeletal: Positive for arthralgias. Neurological: Positive for confusion. Negative for speech difficulty. Hematological: Does not bruise/bleed easily. Psychiatric/Behavioral: Negative for agitation, self-injury, sleep disturbance and suicidal ideas. The patient is not nervous/anxious. Objective Vitals: 08/13/24 1318 BP: 122/74 BP Location: Left arm Patient Position: Sitting Cuff Size: Adult Pulse: 92 Resp: 18 Temp: 99 ??F (37.2 ??C) TempSrc: Temporal SpO2: 98% Weight: 126 kg (278 lb) Height: 177.8 cm (70 ) Estimated body mass index is 39.89 kg/m?? as calculated from the following: Height as of this encounter: 177.8 cm (70 ). Weight as of this encounter: 126 kg (278 lb). Does the patient have evidence of cognitive impairment? No Physical Exam Vitals reviewed. Constitutional: Appearance: Normal appearance. HENT: Head: Normocephalic and atraumatic. Right Ear: Tympanic membrane, ear canal and external ear normal. Left Ear: Tympanic membrane, ear canal and external ear normal. Nose: Nose normal. Mouth/Throat: Mouth: Mucous membranes are moist. Pharynx: Oropharynx is clear. Eyes: Conjunctiva/sclera: Conjunctivae normal. Pupils: Pupils are equal, round, and reactive to light. Cardiovascular: Rate and Rhythm: Normal rate and regular rhythm. Heart sounds: Murmur heard. Pulmonary: Effort: Pulmonary effort is normal. Breath sounds: Normal breath sounds. Abdominal: General: Bowel sounds are normal. Palpations: Abdomen is soft. Tenderness: There is no abdominal tenderness. There is no guarding or rebound. Hernia: No hernia is present. Musculoskeletal: General: Normal range of motion. Cervical back: Neck supple. Skin: General: Skin is warm and dry. Capillary Refill: Capillary refill takes less than 2 seconds. Neurological: Mental Status: He is alert and oriented to person, place, and time. Psychiatric: Mood and Affect: Mood normal. Behavior: Behavior normal. Lab Results Component Value Date HGBA1C 9.0 (A) 08/13/2024 HEALTH RISK ASSESSMENT Smoking Status: Social History Tobacco Use Smoking Status Former Current packs/day: 0.00 Average packs/day: 1.4 packs/day for 49.9 years (69.5 ttl pk-yrs) Types: Cigarettes Start date: 02/19/1972 Quit date: 02/18/1998 Years since quittin.5 Smokeless Tobacco Never Alcohol Consumption: Social History Substance and Sexual Activity Alcohol Use Not Currently Fall Risk Screen: GARFIELD Fall Risk Assessment was completed, and patient is at MODERATE risk for falls. Assessment completed on:08/13/2024 Depression Screenin08/13/2024 1:19 PM PHQ-2/PHQ-9 Depression Screening Little interest or pleasure in doing things Not at all Feeling down, depressed, or hopeless Not at all How difficult have these problems made it for you to do your work, take care of things at home, or get along with other people? Not difficult at all Health Habits and Functional and Cognitive Screenin08/13/2024 1:19 PM Functional & Cognitive Status Do you have difficulty preparing food and eating? No Do you have difficulty bathing yourself, getting dressed or grooming yourself? No Do you have difficulty using the toilet? No Do you have difficulty moving around from place to place? No Do you have trouble with steps or getting out of a bed or a chair? No Current Diet Low Carb Diet Dental Exam Up to date Eye Exam Up to date Exercise (times per week) 0 times per week Current Exercises Include No Regular Exercise Do you need help using the phone? No Are you deaf or do you have serious difficulty hearing? No Do you need help to go to places out of walking distance? No Do you need help shopping? No Do you need help preparing meals? No Do you need help with housework? No Do you need help with laundry? No Do you need help taking your medications? No Do you need help managing money? No Do you ever drive or ride in a car without wearing a seat belt? No Have you felt unusual fatigue (could be tiredness), stress, anger or loneliness in the last month? No Who do you live with? Alone If you need help, do you have trouble finding someone available to you? No Have you been bothered in the last four weeks by sexual problems? No Do you have difficulty concentrating, remembering or making decisions? No Age-appropriate Screening Schedule: Refer to the list below for future screening recommendations based on patient's age, sex and/or medical conditions. Orders for these recommended tests are listed in the plan section. The patient has been provided with a written plan. Health Maintenance Topic Date Due Hepatitis B (1 of 3 - Risk 3-dose series) Never done ANNUAL WELLNESS VISIT 07/08/2024 LIPID PANEL 08/07/2024 ZOSTER VACCINE (2 of 2) 03/23/2025 (Originally 10/18/2022) COVID-19 Vaccine ( season) 2025 (Originally 10/20/2023) DIABETIC FOOT EXAM 10/09/2024 INFLUENZA VACCINE 11/18/2024 DIABETIC EYE EXAM 02/05/2025 HEMOGLOBIN A1C 02/12/2025 URINE MICROALBUMIN-CREATININE RATIO (uACR) 08/13/2025 COLORECTAL CANCER SCREENING 10/15/2025 TDAP/TD VACCINES (2 - Td or Tdap) 07/08/2033 HEPATITIS C SCREENING Completed Pneumococcal Vaccine 50+ Completed AAA SCREEN ONCE Completed Assessment & Plan [facility] Preventative Services Quick Reference Risk Factors Identified During Encounter Chronic Pain: Patient has responded well to gabapentin and PT Fall Risk-High or Moderate: Discussed Fall Prevention in the home The above risks/problems have been discussed with the patient. Follow up actions/plans if indicated are seen below in the Assessment/Plan Section. Pertinent information has been shared with the patient in the After Visit Summary. Diagnoses and all orders for this visit: 1. Type 2 diabetes mellitus with hyperglycemia, with long-term current use of insulin (Primary) Assessment & Plan: Patient has now established care with endocrinology. They added SGLT-2 jardiance at 10mg daily. Continued ozempic 1mg weekly, lantus 80mg nightly. Diabetic foot exam stable. No confirmed retinopathy Orders: - POC Glycosylated Hemoglobin (Hb A1C) - POC Albumin/Creatinine Ratio Urine - Cancel: Hemoglobin A1c; Future - glucose blood (True Metrix Blood Glucose Test) test strip; Use as instructed Dispense: 100 each; Refill: 2 - Insulin Pen Needle (Pen [place]) 31G X 8 MM misc; Use 1 Needle Daily. Dispense: 100 each; Refill:1 2. Benign prostatic hyperplasia with weak urinary stream Assessment & Plan: Approximately one year ago patient had complaints of frequent nighttime urination, approximately 3-4 episodes. He also noted weak in urinary stream and urgency. He denies any feelings of urinary retention, hematuria or urinary obstruction. He was initiated on tamsulosin 0.5 mg nightly which she states has given him full resolution of his symptom 3. Coronary artery disease involving gila [place] coronary artery of gila river heart without angina pectoris Assessment & Plan: Cardiac catheterization Result Date: 03/31/2022 Chronic total occlusion to the LAD extending from the ostium to the distal vessel and fed by collaterals from the RCA Mild nonobstructive coronary artery disease involving the proximal LCx and proximal to mid RCA. Mildly elevated LVEDP at 24 mmHg Successful TR band closure to the right radial arterial access. 4. Gastric banding status 5. History of smoking Assessment & Plan: Patient 1 pack/day smoker for 20 years, stopped in 1998 6. Mixed hyperlipidemia Assessment & Plan: Patient continues to utilize daily fenofibrate 160mg and atorvastatin 40mg daily. Rechecking lipidstoday. 7. Lumbar radiculopathy Assessment & Plan: Patient was followed and approved for neurosurgery prior to leaving [place]. MRI reviewed in officetoday showing L3-5 circumferential disc bulging, ligamentum flavum infolding and facet arthropathy contributing to left subarticular zone impingement of the traversing L5 nerve root, mild spinal canal stenosis and mild bilateral neural foraminal stenosis. Was evaluated by neurosurgery at [facility] who declined surgery at this time, receiving benefit from pain management 8. Morbid (severe) obesity due to excess calories Assessment & Plan: Patient's (Body mass index is 39.89 kg/m .) indicates that they are obese (BMI >30) with healthconditions that include obstructive sleep apnea, hypertension, coronary heart disease, diabetes piter itus, dyslipidemias, and GERD . Weight is unchanged. BMI is above average; BMI management plan is completed. We discussed portion control and increasing exercise. 9. Obstructive sleep apnea Assessment & Plan: Patient reports better compliance with PAP uses after getting a new, smaller PAP mask 10. Primary hypertension Assessment & Plan: BP well controlled in office today, 122/74. Continue amlodipine 10mg daily, HCTZ 25mg daily, metoprolol 100mg BID 11. Primary insomnia Assessment & Plan: Longstanding pattern of insomnia, he is utilizing lorazepam nightly with good benefit for a number of years. He states that he is having some issues with his neuropathy in his feet worsening at bedtime but this will respond well to extra dose of lorazepam. He has experienced poor response in the past to medication such as trazodone, Ambien and Lunesta. Reviewed Roberto with satisfactory findings. He has controlled substance agreement and up-to-date UDS on file 12. Stage 3a chronic kidney disease Assessment & Plan: Patient has been followed by [facility] with a baseline creatinine noted timi 1.5-1.6 range, GFR 47. Rechecking metabolic panel today 13. Valvular heart disease 14. Medicare annual wellness visit, subsequent - Cancel: Lipid Panel; Future - Cancel: TSH Rfx On Abnormal To Free T4; Future - Cancel: T4, Free; Future - Lipid Panel; Future - T4, Free; Future - TSH Rfx On Abnormal To Free T4; Future 15. Prostate cancer screening - Cancel: PSA Screen; Future - PSA Screen; Future 16. Gastroesophageal reflux disease without esophagitis Assessment & Plan: Patient's insurance stopped covering pantoprazole, subsequently he had developed heartburn. Insurance ultimately did approve restarting pantoprazole with complete resolution of his GERD 17. Spinal stenosis, lumbar region, with neurogenic claudication Assessment & Plan: He has been evaluated by neurosurgery and pain management for his spinal stenosis. Neurosurgery wanted to avoid surgical intervention due to his weight and uncontrolled A1c, per their report based off of his MRI he does have some advanced level degenerative changes in the L3-4 facets. He was subsequently referred to physical therapy which has helped his pain and mobility issues significantly. Other orders - valACYclovir (Valtrex) 1000 MG tablet; Take 1 tablet by mouth 3 (Three) Times a Day for 7 days. Dispense: 21 tablet; Refill: 0 Follow Up: Return in about 3 months (around 11/13/2024) for Next scheduled follow up. An After Visit Summary and PPPS were made available to the patient. documented in this encounter Plan of Treatment Upcoming Encounters Date Type Department Care Team (Late st Contact Info) Description 11/02/2024 11:15 AM EDT Office Visit [facility] [address] [facility] [place] [address] [place] [address] Shameka Redmond PA 3084 [facility] [address] [place], [place] [id number] 11/12/2024 1:30 PM EDT Office Visit [facility] PRIMARY CARE [address] [place] [phone] Nusrat Lamb APRN 6 [place] [address] 02/25/2025 11:00 AM EST Office Visit [facility] ENDOCRINOLOGY 3084 [facility] [address] [place] [address] Sotero Dillon MD 3084 [facility] [address] [place] [address] Scheduled Orders Name Type Priority Associated Diagnoses Orde r Schedule Lipid Panel Lab Routine Medicare annual wellness visit, subsequent Expected: 08/18/2024 (Approximate), Expires: 08/13/2025 PSA Screen Lab Routine Prostate cancer screening Expected: 08/18/2024 (Approximate), Expires: 08/13/2025 T4, Free Lab Routine Medicare annual wellness visit, subsequent Expected: 08/18/2024 (Approximate), Expires: 08/13/2025 TSH Rfx On Abnormal To Free T4 Lab Routine Medicare annual wellness visit, subsequent Expected: 08/18/2024 (Approximate), Expires: 08/13/2025 documented as of this encounter Procedures Procedure Name Priority Date/Time Associated Diagnosis Comments POC ALBUMIN/CREATININE RATIO Routine 08/13/2024 3:26 PM EDT Type 2 diabetes mellitus with hyperglycemia, with long-term current use of insulin POCT GLYCOSYLATED HEMOGLOBIN (HGB A1C) Routine 08/13/2024 1:27 PM EDT Type 2 diabetes mellitus with hyperglycemia, with long-term current use of insulin documented in this encounter Results * POC Albumin/Creatinine Ratio Urine (08/13/2024 3:26 PM EDT) POC ALBUMIN, URINE 10 mg/L POC CREATININE, URINE 50 mg/dL POC Urine Albumin Creatinine Ratio <30 <30 Lot Number [id number] Expiration Date Urine 08/13/2024 3:26 PM EDT us Nusrat Lamb APRN POINT OF CARE TEST ORDERABL ES Final Result * (ABNORMAL) POC Glycosylated Hemoglobin (Hb A1C) (08/13/2024 1:27 PM EDT) Hemoglobin A1C 9.0(A) 4.5 - 5.7 % [facility] Lot Number [id number] [facility] Expiration Date [facility] Blood 08/13/2024 1:27 PM EDT us Nusrat Lamb APRN POINT OF CARE TEST ORDERABL ES Final Result [facility]
[address] [place] [address], documented in this encounter Visit Diagnoses Diagnosis Type 2 diabetes mellitus with hyperglycemia, with long-term current use of insulin- Primary Benign prostatic hyperplasia with weak urinary stream Coronary artery disease involving [place] coronary artery of [place] heart without angina pectoris Gastric banding status Bariatric surgery status History of smoking Personal history of tobacco use, presenting hazards to health Mixed hyperlipidemia Lumbar radiculopathy Thoracic or lumbosacral neuritis or radiculitis, unspecified Morbid (severe) obesity due to excess calories Obstructive sleep apnea Obstructive sleep apnea (adult) (pediatric) Primary hypertension Unspecified essential hypertension Primary insomnia Persistent disorder of initiating or maintaining sleep Stage 3a chronic kidney disease Valvular heart disease Endocarditis, valve unspecified, unspecified cause Medicare annual wellness visit, subsequent Prostate cancer screening Special screening for malignant neoplasm of prostate Gastroesophageal reflux disease without esophagitis Esophageal reflux Spinal stenosis, lumbar region, with neurogenic claudication documented in this encounter Care Teams Shearing Supervisor Relationship Specialty Start Date End Date Nusrat Lamb APRN [address] [place] [id number] PCP - General Family Medicine 07/04/22 documented as of this encounter
--- OUTSIDE RECORDS SUMMARY | 2024-09-07 09:45 | XMS_ITS | Encounter Summary ---
Author Organization [facility] Address [address] [place] [address] Care Team Providers Care Boat Builder Name Role Phone Nusrat Lamb AGRICULTURE MANAGER Primary Care Provider [phone] Reason for Visit * Reason Comments Med Refill Encounter Details Date Type Department Care Team (Late st Contact Info) Description 08/12/2024 Refill [facility] PRIMARY CARE [address] [place] [phone] Nusrat Lamb, AGRICULTURE MANAGER [address] [place] [address] Type 2 diabetes mellitus with diabetic autonomic neuropathy, without long-term current use of insulin Social History Tobacco Use Types Packs/Day Years Used Date Smoking Tobacco: Former Cigarettes 1.4 49.9 0 02/19/1972 - 02/18/1998 Smokeless Tobacco: Never Alcohol Use Standard Drinks/Week Comments Not Currently 0 (1 standard drink = 0.6 oz pur e alcohol) [facility] Utilities Answer Date Recorded In the past 12 months has [facility] [employer], gas, oil, or water [employer] threatened to shut off services in your [...] 07/26/2024 How often do you attend chur ch or mormon services? Never 07/26/2024 Do you belong to any clubs o r organizations such as pentecostalism groups, unions, fraternal or athletic groups, or [...] Brief Depression Severity Measure Score 0 10/04/2022 [facility] - Occupational Stress Questionnaire Answer Date Recorded [...] any time in the past 12 m [facility], were you homeless or living in a [place] health care facility (including now)? No 07/26/2024 Housing Stability Answer [...] on file documented as of this encounter Miscellaneous Notes * Telephone Encounter - Ariana Scott MA - 08/12/2024 3:09 PM EDT CSA and appointments are up to date documented in this encounter Plan of Treatment Upcoming Encounters Date Type Department Care Team (Late st Contact Info) Description 11/02/2024 11:15 AM EDT Office Visit [facility] ENDOCRINOLOGY [address] [phone] Shameka Redmond PA [address] [id number] 11/12/2024 1:30 PM EDT Office Visit [facility] PRIMARY CARE [address] [place] [phone] Nusrat Lamb APRN 6 [place] [address] 02/25/2025 11:00 AM EST Office Visit [facility] ENDOCR[facility]OLOGY [address] [address] Sotero Dillon MD [address] [address] documented as of this encounter Visit Diagnoses Diagnosis Type 2 diabetes mellitus with diabetic autonomic neuropathy, without long-term current use of insulin documented in this encounter Care Teams Boat Builder Relationship Specialty Start Date End Date Nusrat Lamb APRN [address] [place] [address] PCP - General Family Medicine 07/04/22 documented as of this encounter
--- OUTSIDE RECORDS SUMMARY | 2024-09-07 09:45 | XMS_ITS | Encounter Summary ---
Author Organization [facility] Address [address] [place] [address] Care Team Providers Care Yard Foreman Name Role Phone Nusrat Lamb PATIENT'S LIBRARIAN Primary Care Provider [phone] Reason for Visit * Reason Comments Med Refill Encounter Details Date Type Department Care Team (Late st Contact Info) Description 12/25/2022 Refill [facility] PRIMARY CARE [address] [place] [phone] Nusrat Lamb, PATIENT'S LIBRARIAN [address] [place], [place] [id number] Anxiety Social History Tobacco Use Types Packs/Day Years Used Date Smoking Tobacco: Former Cigarettes 1 26 0 02/19/1972 - 02/18/1998 Smokeless Tobacco: Never Alcohol Use Standard Drinks/Week Comments Not Currently 0 (1 standard drink = 0.6 oz pur e alcohol) PHQ-2 Answer Date Recorded Retired PHQ-9: Brief Depression Severity Measure Score 0 10/04/2022 PHQ-2 Answer Date Recorded Retired PHQ-9: Brief Depression Severity Measure Score 0 10/04/2022 Sex and Gender Information Value Date Recorded Sex Assigned at Male 04/20/2023 11:33 AM EST Legal Sex Male 10:45 AM EDT Gender Identity Male 04/20/2023 11:33 AM EST Sexual Orientation Not on file documented as of this encounter Plan of Treatment Upcoming Encounters Date Type Department Care Team (Late st Contact Info) Description 11/02/2024 11:15 AM EDT Office Visit [facility] ENDOCRINOLOGY [address] [address] Shameka Redmond PA [address] [id number] 11/12/2024 1:30 PM EDT Office Visit [facility] PRIMARY CARE [address] [place] [phone] Nusrat Lamb APRN 6 [place] [address] 02/25/2025 11:00 AM EST Office Visit [facility] ENDOCRINOLOGY [address] [phone] Sotero Dillon MD [address] [address] documented as of this encounter Visit Diagnoses Diagnosis Anxiety Anxiety state, unspecified documented in this encounter Care Teams Yard Foreman Relationship Specialty Start Date End Date Nusrat Lamb APRN [address] [place] [address] PCP - General Family Medicine 07/04/22 documented as of this encounter
--- OUTSIDE RECORDS SUMMARY | 2024-09-07 09:45 | XMS_ITS | Encounter Summary ---
Author Organization [facility] Address [address] [place] [id number] Care Team Providers Care Asphalt Mixing Machine Operator Name Role Phone Nusrat Lamb HEALTH AND FITNESS PROFESSOR Primary Care Provider [phone] Reason for Visit * Reason Onset Date Comments MD LAMB MEDICATION CONCERN 07/20/2022 Encounter Details Date Type Department Care Team (Late st Contact Info) Description 07/20/2022 Telephone [facility] PRIMARY CARE [address] [place] [phone] Nusrat Lamb, HEALTH AND FITNESS PROFESSOR [address] [place] [address] MD LAMB MEDICATION CONCERN Social History Tobacco Use Types Packs/Day Years Used Date Smoking Tobacco: Never Smokeless Tobacco: Never Alcohol Use Standard Drinks/Week Comments Not Currently 0 (1 standard drink = 0.6 oz pur e alcohol) PHQ-2 Answer Date Recorded Retired PHQ-9: Brief Depression Severity Measure Score 6 07/04/2022 Sex and Gender Information Value Date Recorded Sex Assigned at Male 04/20/2023 11:33 AM EST Legal Sex Male 10:45 AM EDT Gender Identity Male 04/20/2023 11:33 AM EST Sexual Orientation Not on file documented as of this encounter Miscellaneous Notes * Telephone Encounter - Justin Rizzo RegSched Rep - 07/23/2022 11:18 AM EDT Caller: Anthony Jacob Relationship: Self Best call back number: [phone] Requested Prescriptions: Requested Prescriptions Pending Prescriptions Disp Refills LORazepam (Ativan) 0.5 MG tablet 30 tablet 0 Sig: Take 1 tablet by mouth Every 8 (Eight) Hours As Needed for Anxiety. glipizide (Glucotrol) 5 MG tablet 60 tablet 3 Sig: Take 1 tablet by mouth 2 (Two) Times a Day Before Meals. atorvastatin (Lipitor) 40 MG tablet 90 tablet 1 Sig: Take 1 tablet by mouth Daily. Pharmacy where request should be sent: [address] [place] [address] [facility] [phone] Last office visit with prescribing clinician: 07/04/2022 Last telemedicine visit with prescribing clinician: Visit date not found Next office visit with prescribing clinician: 10/04/2022 Additional details provided by patient: Does the patient have less than a 3 day supply: [x] Yes [] No Mely Xiao Rep 07/23/22 11:19 EDT * Telephone Encounter - Bev Vargas PCT - 07/20/2022 9:46 AM EDT Caller: Anthony Jacob Relationship: Self Best call back number: [phone] What medications are you currently taking: Current Outpatient Medications on File Prior to Visit Medication Sig Dispense Refill ??? amLODIPine (NORVASC) 10 MG tablet Take 1 tablet by mouth Daily. ??? aspirin 81 MG oral suspension ??? atorvastatin (Lipitor) 40 MG tablet Take 1 tablet by mouth Daily. 90 tablet 1 ??? Baclofen (LIORESAL) 5 MG tablet Take 1 tablet by mouth Every 8 (Eight) Hours. 90 tablet 0 ??? fenofibrate 160 MG tablet Take 1 tablet by mouth Daily. ??? glipizide (Glucotrol) 5 MG tablet Take 1 tablet by mouth 2 (Two) Times a Day Before Meals. 60 tablet 3 ??? hydroCHLOROthiazide (HYDRODIURIL) 25 MG tablet Take 1 tablet by mouth Daily. 90 tablet 2 ??? hydrOXYzine (ATARAX) 25 MG tablet Take 1 tablet by mouth Every 8 (Eight) Hours As Needed. for anxiety ??? Insulin Glargine (Lantus SoloStar) 100 UNIT/ML injection pen 60-80 units once daily E11.9 15 mL2 ??? LORazepam (Ativan) 0.5 MG tablet Take 1 tablet by mouth Every 8 (Eight) Hours As Needed for Anxiety. 30 tablet 0 ??? metoprolol tartrate (LOPRESSOR) 100 MG tablet Take 1 tablet by mouth Daily. ??? pantoprazole (PROTONIX) 40 MG EC tablet Take 1 tablet by mouth Daily. ??? pregabalin (LYRICA) 150 MG capsule Take 1 capsule by mouth Every 12 (Twelve) Hours. ??? sertraline (ZOLOFT) 50 MG tablet ??? traMADol (ULTRAM) 50 MG tablet Take 1 tablet by mouth Every 6 (Six) Hours As Needed for Severe Pain. 60 tablet 0 No current facility-administered medications on file prior to visit. Which medication are you concerned about: sertraline (ZOLOFT) 50 MG tablet What are your concerns: PATIENT HAS BEEN GETTING A LOT OF BAD NEWS LATELY AND WOULD LIKE TO INCREASE DOSAGE TO 100 MG documented in this encounter Plan of Treatment Upcoming Encounters Date Type Department Care Team (Late st Contact Info) Description 11/02/2024 11:15 AM EDT Office Visit [facility] ENDOCRINOLOGY [address] [address] Shameka Redmond, NOMAN [address] [address] 11/12/2024 1:30 PM EDT Office Visit [facility] PRIMARY CARE [address] [place] [address] [place] [address] Nusrat Lamb APRN [address] [place] [address] 02/25/2025 11:00 AM EST Office Visit [facility] ENDOCR[facility]OLOG[facility] [address] [phone] Sotero Dillon MD [address] [id number] documented as of this encounter Visit Diagnoses Diagnosis Primary insomnia Persistent disorder of initiating or maintaining sleep documented in this encounter Additional Health Concerns Assessment Noted Time PHQ-2 Depression Total Score: 4 07/05/19 23 1:22 PM EDT documented as of this encounter Care Teams Asphalt Mixing Machine Operator Relationship Specialty Start Date End Date Nusrat Lamb, HEALTH AND FITNESS PROFESSOR [address] [place] [address] PCP - General Family Medicine 07/04/22 documented as of this encounter
--- OUTSIDE RECORDS SUMMARY | 2024-09-07 09:45 | XMS_ITS | Encounter Summary ---
Author Organization [facility] Address [address] [place] [address] Care Team Providers Care Page Designer Name Role Phone Zainab Nusrat Camacho APRN Primary Care Provider [phone] Encounter Details Date Type Department Care Team (Late st Contact Info) Description 08/10/2024 Patient Outreach [facility] CASE MANAGEMENT Shruthi Odonnell, RN [address] [place] [address] Social History Tobacco Use Types Packs/Day Years Used Date Smoking Tobacco: Former Cigarettes 1.4 49.9 0 02/19/1972 - 02/18/1998 Smokeless Tobacco: Never Alcohol Use Standard Drinks/Week Comments Not Currently 0 (1 standard drink = 0.6 oz pur e alcohol) [facility] Utilities Answer Date Recorded In the past 12 months has [facility] [employer], gas, oil, or water [employer] threatened to shut off services in your [...] often do you attend chur ch or catholic services? Never 07/26/2024 Do you belong to any clubs o r organizations such as christian groups, unions, fraternal or athletic groups, or [...] Brief Depression Severity Measure Score 0 10/04/2022 [facility] - Occupational Stress Questionnaire Answer [...] any time in the past 12 m [facility], were you homeless or living in a long term (including now)? No 07/26/2024 Housing Stability Answer [...] Date Recorded Patient Health Questionnaire-2 Score 0 04/23/2024 Sex and Gender Information Value Date Recorded Sex Assigned at Male 04/20/2023 11:33 AM EST Legal Sex Male 10:45 AM EDT Gender Identity Male 04/20/2023 11:33 AM EST Sexual Orientation Not on file documented as of this encounter Miscellaneous Notes * Outreach Note - Shruthi Dubois RN - 08/10/2024 10:11 AM EDT Images from the original note were not included. AMBULATORY CASE MANAGEMENT NOTE Names and Relationships of Patient/Support Persons: Contact: Anthony Jacob; Relationship: Self - Patient Outreach RN-ACM brief outreach with patient engaged in High Risk Case Management. Patient has been working toward lowering his A1c. Patient reported no concerns at this time. He was traveling at the time of our call. RN-ACM will contact patient another day. A1C Last 3 Results 10/10/2023 12:03 01/20/2024 14:11 04/23/2024 10:50 HGBA1C Last 3 Results Hemoglobin A1C 9.2 11.0 9.7 Shruthi Caro Ambulatory Case Management 08/10/2024, 10:12 EDT documented in this encounter Plan of Treatment Upcoming Encounters Date Type Department Care Team (Late st Contact Info) Description 11/02/2024 11:15 AM EDT Office Visit [facility] END[facility]OLOG[facility] 30[address] [facility] [address] [address] Shameka Redmond PA [address] [address] 11/12/2024 1:30 PM EDT Office Visit [facility] PRIMARY CARE [address] [place] [phone] Nusrat Lamb, WALLPAPER HANGER [address] [place] [address] 02/25/2025 11:00 AM EST Office Visit [facility] 3084 [facility] [address] [address] Sotero Dillon MD [address] [address] documented as of this encounter Visit Diagnoses Not on filedocumented in this encounter Care Teams Page Designer Relationship Specialty Start Date End Date Nusrat Lamb, WALLPAPER HANGER [address] [place] [address] PCP - General Family Medicine 07/04/22 documented as of this encounter
--- OUTSIDE RECORDS SUMMARY | 2024-09-07 09:45 | XMS_ITS | Encounter Summary ---
[facility] Address [address] [place] [address] Care Team Providers Care Management Coordinator Name Role Phone Nusrat Lamb APRN Primary Care Provider +1 [phone] Reason for Visit * Reason Onset Date Comments CONCERNS 08/28/2024 Encounter Details Date Type Department Care Team (Late st Contact Info) Description 08/28/2024 Telephone [facility] [address] [place] [phone] Nusrat Lamb, BARREL REAMER [address] [place] [address] CONCERNS Social History Tobacco Use Types Packs/Day Years Used Date Smoking Tobacco: Former Cigarettes 1.4 49.9 0 02/19/1972 - 02/18/1998 Smokeless Tobacco: Never Alcohol Use Standard Drinks/Week Comments Not Currently 0 (1 standard drink = 0.6 oz pur e alcohol) [facility] Utilities Answer Date Recorded In the past 12 months has [employer], gas, oil, or water [employer] threatened to shut off services in your [...] often do you attend chur ch or rastafarian services? Never 07/26/2024 Do you belong to any clubs o r organizations such as bahai groups, unions, fraternal or athletic groups, or [...] Brief Depression Severity Measure Score 0 10/04/2022 [facility] - Occupational Stress [...] any time in the past 12 m [facility], were you homeless or living in a correction (including now)? No 07/26/2024 Housing Stability Answer [...] encounter Miscellaneous Notes * Telephone Encounter - Aren Fiore RegSched Rep - 08/28/2024 10:27 AM EDT Caller: Anthony Jacob Relationship: Self Best call back number: [phone] What is the best time to reach you: ANYTIME Who are you requesting to speak with (clinical staff, provider, specific staff member): CLINICAL STAFF PATIENT STATES THAT HIS PENIS IS REF AND INFLAMED. PATIENT STATES HE HAS BEEN USING ANTI FUNGAL ANDITCH CREAM ON IT AND ITS NOT HELPING. PLEASE CALL TO DISCUSS documented in this encounter Plan of Treatment Upcoming Encounters Date Type Department Care Team (Late st Contact Info) Description 11/02/2024 11:15 AM EDT Office Visit [facility] [address] [phone] Shameka Redmond PA [address] [address] 11/12/2024 1:30 PM EDT Office Visit [facility] [address] [place] [phone] Nusrat Lamb APRN 6 [place] [address] 02/25/2025 11:00 AM EST Office Visit [facility] [address] [phone] Sotero Dillon MD [facility] [address] [address] documented as of this encounter Visit Diagnoses Not on filedocumented in this encounter Care Teams Management Coordinator Relationship Specialty Start Date End Date Nusrat Lamb, BARREL REAMER [address] [place] [address] PCP - General Family Medicine 07/04/22 documented as of this encounter
--- OUTSIDE RECORDS SUMMARY | 2024-09-07 09:45 | XMS_ITS | Encounter Summary ---
[facility] Address [address] [place] [address] Care Team Providers Care Immunology Specialist Name Role Phone Nusrat Lamb APRN Primary Care Provider +1 [phone] Encounter Details Date Type Department Care Team (Late st Contact Info) Description 07/10/2024 Patient Outreach [facility] CASE MANAGEMENT Nelida Samaniego, RN Population Health Social History Tobacco Use Types Packs/Day Years Used Date Smoking Tobacco: Former Cigarettes 1.4 49.9 0 02/19/1972 - 02/18/1998 Smokeless Tobacco: Never Alcohol Use Standard Drinks/Week Comments Not Currently 0 (1 standard drink = 0.6 oz pur e alcohol) PHQ-2 Answer Date Recorded Retired PHQ-9: Brief Depression Severity Measure Score 0 10/04/2022 Hunger Vital Sign Answer Date Recorded Within the past 12 months, y ou worried that your food would run out before you got the money to buy more. Never true 03/24/19 25 Within the past 12 months, t he food you bought just didn't last and you didn't have money to get more. Never true 03/24/2024 PRAPARE - Transportation Answer Date Re corded In the past 12 months, has l ack of transportation kept you from medical appointments or from getting medications? No 05/2024 In the past 12 months, has l ack of transportation kept you from meetings, work, or from getting things needed for daily living? No 03/24/2024 Housing Stability Answer Date Recorded Current Living Arrangements home 05/2024 Potentially Unsafe Housing Conditions Not on wilberto e 03/24/2024 PHQ-2 Answer Date Recorded Patient Health Questionnaire-2 Score 0 04/23/2024 Sex and Gender Information Value Date Recorded Sex Assigned at Male 04/20/2023 11:33 AM EST Legal Sex Male 10:45 AM EDT Gender Identity Male 04/20/2023 11:33 AM EST Sexual Orientation Not on file documented as of this encounter Nursing Notes * Nelida Cruz RN - 07/10/2024 3:56 PM EDT Problem: Diabetes Type 2 Goal: Monitor My Blood Sugar Outcome: Progressing Intervention: My Blood Sugar Management To Do List Description: Why is this important? Checking your blood sugar (glucose) at home helps to keep it from getting very high or very low. Writing the results in a diary or log, or using an jose, helps your diabetes care provider know how to care for you. Your blood sugar (glucose) log should have the time, date and results. Also write down the amount of insulin or other medicine that you take. Flowsheets (Taken 07/10/2024 6491) My Blood Sugar Management To Do List: take the blood sugar (glucose) log to all provider visits check blood sugar (glucose) at prescribed times Goal: Optimal Care Coordination of a Patient Experiencing Diabetes, Type 2 Outcome: Progressing Intervention: Monitor and Manage Follow-Up for Comorbidities Flowsheets (Taken 07/10/2024 8900) Monitor and Manage Follow-Up for Comorbidities: activity based on tolerance and functional limitations encouraged documented in this encounter Miscellaneous Notes * Outreach Note - Nelida Cruz RN - 07/10/2024 3:56 PM EDT AMBULATORY CASE MANAGEMENT NOTE Names and Relationships of Patient/Support Persons: Contact: Anthony Jacob; Relationship: Self - Patient Outreach RN-ZO called patient to follow up regarding diabetes management. 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 Patient voiced compliance with medications as ordered each day. Reviewed DM education. Patient stated he is monitoring his BS every AMbefore medications; BS running between 140-200. Patient denied any abnormal symptoms. He stated he is dealing with some seasonal allergies, but is used to this. Patient voiced being active and mobile. He reported his breathing is okay; he is using his CPAP every night. Reviewed next PCP appt, 07/24/24. Patient voiced agreement with plans to be there. No questions or concerns voiced at this time. Nelida Baldwin [facility] Case Management 07/10/2024, 15:59 EDT documented in this encounter Plan of Treatment Upcoming Encounters Date Type Department Care Team (Late st Contact Info) Description 11/02/2024 11:15 AM EDT Office Visit [facility] ENDOCRINOLOGY [address] [phone] Shameka Redmond PA [address] [place] [address] 11/12/2024 1:30 PM EDT Office Visit [facility] PRIMARY CARE [address] [place] [phone] Nusrat Lamb APRN [address] [place] [address] 02/25/2025 11:00 AM EST Office Visit [facility] END[facility] [address] [phone] Sotero Dillon MD [facility] [address] [phone] documented as of this encounter Visit Diagnoses Not on filedocumented in this encounter Care Teams Immunology Specialist Relationship Specialty Start Date End Date Nusrat Lamb APRN [address] [place] [address] PCP - General Family Medicine 07/04/22 documented as of this encounter
--- OUTSIDE RECORDS SUMMARY | 2024-09-07 09:45 | XMS_ITS | Encounter Summary ---
Author Organization [facility] Address [address] [place] [address] Care Team Providers Care Counter Clerk [employer] Name Role Phone Nusrat Lamb APRN Primary Care Provider +1 [phone] Reason for Visit * Reason Onset Date Comments Med Refill 07/15/2024 Encounter Details Date Type Department Care Team (Late st Contact Info) Description 07/15/2024 Refill [facility] [address] [place] [phone] Nusrat Lamb APRN 6 [place] [address] Type 2 diabetes mellitus with [...] Telephone Encounter - Ariana Scott MA - 07/15/2024 1:30 PM EDT CSA and appointment up to date * Telephone Encounter - Angie Mccartney RegSched Rep - 07/15/2024 1:20 PM EDT Caller: Anthony Jacob Relationship: Self Best call back number: Telephone Information: Requested Prescriptions: Requested Prescriptions Pending Prescriptions Disp Refills pregabalin (LYRICA) 150 MG capsule 180 capsule 0 Sig: Take 1 capsule by mouth Every 12 (Twelve) Hours for 90 days. Pharmacy where request should be sent: [facility] MA[facility] DELIVERY - [place] [id number] - [phone] - [phone] FX Last office visit with prescribing clinician: 04/23/2024 Last telemedicine visit with prescribing clinician: Visit date not found Next office visit with prescribing clinician: 07/24/2024 Additional details provided by patient: Does the patient have less than a 3 day supply: [] Yes [x] No Would you like a call back once the refill request has been completed: [] Yes [x] No If the office needs to give you a call back, can they leave a voicemail: [] Yes [x] No Mely Thorne 07/15/24 13:20 EDT documented in this encounter Plan of Treatment Upcoming Encounters Date Type Department Care Team (Late st Contact Info) Description 11/02/2024 11:15 AM EDT Office Visit [facility] ENDOCRINOLOGY 3084 [facility] [address] [place] [address] Shameka Redmond PA [address] [phone] 11/12/2024 1:30 PM EDT Office Visit [facility] [address] [place] [phone] Nusrat Lamb APRN 6 [place] [address] 02/25/2025 11:00 AM EST Office Visit [facility] ENDOCR[facility] [address] [phone] Sotero Dillon MD [address] [address] documented as of this encounter Visit Diagnoses Diagnosis Type 2 diabetes mellitus with diabetic autonomic neuropathy, without long-term current use of insulin documented in this encounter Care Teams Counter Clerk [employer] Relationship Specialty Start Date End Date Nusrat Lamb, JOSHUA [address] [place] [address] PCP - General Family Medicine 07/04/22 documented as of this encounter
--- OUTSIDE RECORDS SUMMARY | 2024-09-07 09:45 | XMS_ITS ---
Author Organization [facility] Address [address] [place] [address] Care Team Providers Care Mining Analyst Name Role Phone Nusrat Lamb APRN Primary Care Provider High Risk Care Management Status:Engaged (Active) Start date:03/19/2024 Enrollment date:03/24/2024 Enrollment reason:Identified using claims or encounter data Related social drivers of health:Social Connections, Financial Resource Strain, Stress, Physical Activity, Food Insecurity, Transportation Needs, Housing Stability Overview ACO Proactive Case Team Name Relationship Phone Shruthi Dubois RN(Responsible Staff) Ambulator y Head Waiter/Waitress [phone] Continued Care and Services Coordination
--- OUTSIDE RECORDS SUMMARY | 2024-09-07 09:45 | XMS_ITS | Encounter Summary ---
Author Organization [facility] Address [address] [place] [address] Care Team Providers Care Inspector Cold Working Name Role Phone Nusrat Lamb APRN Primary Care Provider +1 [phone] Reason for Visit * Reason Onset Date Comments Med Refill 09/02/2024 Encounter Details Date Type Department Care Team (Late st Contact Info) Description 09/02/2024 Refill [facility] [address] [place] [phone] Nusrat Lamb, JOSHUA [address] [place] [address] Primary insomnia Social History Tobacco Use Types Packs/Day Years Used Date Smoking Tobacco: Former Cigarettes 1.4 49.9 0 02/19/1972 - 02/18/1998 Smokeless Tobacco: Never Alcohol Use Standard Drinks/Week Comments Not Currently 0 (1 standard drink = 0.6 oz pur e alcohol) [facility] Utilities Answer Date Recorded In the past 12 months has e [employer], gas, oil, or water [employer] threatened to shut off services in your [...] How often do you attend chur or jainism services? Never 07/26/2024 Do you belong to any clubs o r organizations such as presybeterian groups, unions, fraternal or athletic groups, or [...] Brief Depression Severity Measure Score 0 10/04/2022 [facility] - Occupational Stress Questionnaire Answer Date Recorded [...] any time in the past 12 m [facility], were you homeless or living in a custodial (including now)? No 07/26/2024 Housing Stability Answer [...] Telephone Encounter - Ariana Scott MA - 09/02/2024 11:58 AM EDT Last visit 08/13/2024 Next visit on 11/12/2024 CSA and UDS up to date until 04/2025 * Telephone Encounter - Portia Winston RegSched Rep - 09/02/2024 11:53 AM EDT Caller: Anthony Jacob Relationship: Self Best call back number: [phone] Requested Prescriptions: Requested Prescriptions Pending Prescriptions Disp Refills LORazepam (ATIVAN) 2 MG tablet 60 tablet 0 sertraline (ZOLOFT) 50 MG tablet 90 tablet 3 Sig: Take 1 tablet by mouth Daily. Pharmacy where request should be sent: [facility] - [facility] [address] [facility] - [phone] - [phone] FX Last office visit with prescribing clinician: 08/13/2024 Last telemedicine visit with prescribing clinician: Visit date not found Next office visit with prescribing clinician: 11/12/2024 Additional details provided by patient: 2 DAYS REMAINING AND ADVISED HE TAKES THE LORAZEPAM EVERY 6HOURS Does the patient have less than a 3 day supply: [x] Yes [] No Would you like a call back once the refill request has been completed: [] Yes [x] No If the office needs to give you a call back, can they leave a voicemail: [] Yes [x] No Mely Barksdale Rep 09/02/24 11:54 EDT documented in this encounter Plan of Treatment Upcoming Encounters Date Type Department Care Team (Late st Contact Info) Description 11/02/2024 11:15 AM EDT Office Visit [facility] [address] [phone] Shameka Remdond PA [address] [address] 11/12/2024 1:30 PM EDT Office Visit [facility]IMARY [facility] [address] [place] [address] [place] [address] Nusrat Lamb APRN 6 [place] [address] 02/25/2025 11:00 AM EST Office Visit [facility] [address] [phone] Sotero Dillon MD [address] [address] documented as of this encounter Visit Diagnoses Diagnosis Primary insomnia Persistent disorder of initiating or maintaining sleep documented in this encounter Care Teams Inspector Cold Working Relationship Specialty Start Date End Date Nusrat Lamb APRN 6 [place] [address] PCP - General Family Medicine 07/04/22 documented as of this encounter
--- OUTSIDE RECORDS SUMMARY | 2024-09-07 09:45 | XMS_ITS | Encounter Summary ---
Author Organization [facility] Address [address] [place] [address] Care Team Providers Care Heat Treat Worker Name Role Phone Nusrat Lamb APRN Primary Care Provider +1 [phone] Encounter Details Date Type Department Care Team (Latest Contact Info) Description 08/13/2024 Travel Social History Tobacco Use Types Packs/Day Years Used Date Smoking Tobacco: Former Cigarettes 1.4 49.9 0 02/19/1972 - 02/18/1998 Smokeless Tobacco: Never Alcohol Use Standard Drinks/Week Comments Not Currently 0 (1 standard drink = 0.6 oz pur e alcohol) [facility] Utilities Answer Date Recorded In the past 12 months has e electric, gas, oil, or water company threatened to shut off services in your [...] often do you attend chur ch or restorationism services? Never 07/26/2024 Do you belong to any clubs o r organizations such as synagogue groups, unions, fraternal or athletic groups, or [...] Brief Depression Severity Measure Score 0 10/04/2022 [facility] of Occupat ional Health - Occupational Stress [...] any time in the past 12 m [facility], were you homeless or living in a [...] on file documented as of this encounter Functional Status documented as of this encounter Plan of Treatment Upcoming Encounters Date Type Department Care Team (Late st Contact Info) Description 11/02/2024 11:15 AM EDT Office Visit [facility] ENDOCRINOLOGY [address] [place] [address] [phone] Shameka Redmond, PA [address] [place] [address] [address] 11/12/2024 1:30 PM EDT Office Visit [facility] PRIMARY CARE [address] [place] [address] [place] [phone] Nusrat Lamb APRN 6 [place] [address] 02/25/2025 11:00 AM EST Office Visit [facility] ENDOCRINOLOGY [address] [phone] Sotero Dillon MD [address] [address] documented as of this encounter Visit Diagnoses Not on filedocumented in this encounter Care Teams Heat Treat Worker Relationship Specialty Start Date End Date Nusrat Lamb APRN 6 [place] [address] PCP - General Family Medicine 07/04/22 documented as of this encounter
--- OUTSIDE RECORDS SUMMARY | 2024-09-07 09:45 | XMS_ITS | Encounter Summary ---
[facility] Address [address] [place] [address] Care Team Providers Care Director Environmental Name Role Phone Nusrat Lamb ORACLE PROGRAMMER ANALYST Primary Care Provider +1 [phone] Reason for Visit * Reason Comments Med Refill Encounter Details Date Type Department Care Team (Late st Contact Info) Description 08/07/2024 Refill [facility] [address] [place] [phone] Nusrat Lamb, ORACLE PROGRAMMER ANALYST 6 [place] [address] Primary insomnia Social History Tobacco Use Types Packs/Day Years Used Date Smoking Tobacco: Former Cigarettes 1.4 49.9 0 02/19/1972 - 02/18/1998 Smokeless Tobacco: Never Alcohol Use Standard Drinks/Week Comments Not Currently 0 (1 standard drink = 0.6 oz pur e alcohol) [facility] Utilities Answer Date Recorded In the past 12 months has [facility] [employer] gas, oil, or water [employer] threatened to shut off services in your [...] often do you attend chur ch or anabaptism services? Never 07/26/2024 Do you belong to any clubs o r organizations such as religion groups, unions, fraternal or athletic groups, or [...] Brief Depression Severity Measure Score 0 10/04/2022 [facility] - Occupational Stress Questionnaire Answer Date [...] any time in the past 12 m [facility], were you homeless or living in a [facility] (including now)? No 07/26/2024 Housing Stability Answer [...] Telephone Encounter - Ariana Scott MA - 08/07/2024 11:52 AM EDT CSA and UDS up to date until [id number] documented in this encounter Plan of Treatment Upcoming Encounters Date Type Department Care Team (Late st Contact Info) Description 11/02/2024 11:15 AM EDT Office Visit [facility] [address] [phone] Shameka Redmond PA [address] [phone] 11/12/2024 1:30 PM EDT Office Visit [facility] [address] [place] [phone] Nusrat Lamb APRN 6 [place] [address] 02/25/2025 11:00 AM EST Office Visit [facility] [address] [phone] Sotero Dillon MD [facility] [address] [phone] documented as of this encounter Visit Diagnoses Diagnosis Primary insomnia Persistent disorder of initiating or maintaining sleep documented in this encounter Care Teams Director Environmental Relationship Specialty Start Date End Date Nusrat Lamb APRN [address] [place] [address] PCP - General Family Medicine 07/04/22 documented as of this encounter
--- OUTSIDE RECORDS SUMMARY | 2024-09-07 09:45 | XMS_ITS | Clinical Summary ---
Author Organization [facility] Address [address] [place] [address] Care Team Providers Care Marine Operations Coordinator Name Role Phone Nusrat Lamb APRN Primary Care Provider [phone] Allergies Active Allergy Reactions Criticality Noted Date Comments Trolamine (Triethanolamine) Rash Low 07/05/19 23 Pollen Extract Cough Low 07/01/2024 Seasonal allergies, lots of sinus pressure and drainage Medications aspirin 81 MG oral suspension Acti ve fenofibrate 160 MG tablet Take 1 tablet by mouth Daily. 023 Active Blood Glucose Monitoring Suppl (D-Care Glucometer) w/Device kitIndications:ma y substitute for any glucometer kit that is approved and availabe 1 kit 3 (Three) Times a Day. Indications: may substitute for any glucometer kit that is approved and availabe 1 kit 023 Active metoprolol tartrate (LOPRESSOR) 100 MG tablet Take 1 tablet by mouth Daily. 30 tablet 2 023 Active Additional Information Patient taking differently:100 mg Oral2 Times Daily, Informant: Self, Reported on 08/13/2024 Continuous Glucose Sensor (Dexcom G6 Sensor)Indication s:Type 2 diabetes mellitus with hyperglycemia, with long-term current use of insulin Use Every 10 (Ten) Days. 3 each 2 024 Active olopatadine (PATANOL) 0.1 % ophthalmic solution Administer 1 drop to both eyes 2 (Two) Times a Day. 5 mL 6 024 Active magnesium oxide (MAG-OX) 400 MG tablet Take 1 tablet by mouth 2 (Two) Times a Day. Active atorvastatin (LIPITOR) 40 MG tabletIndications :Hyperlipidemia, unspecified hyperlipidemia type TAKE 1 TABLET EVERY DAY 90 tablet 3 025 Active hydroCHLOROthiazi de 25 MG tabletIndications :Primary hypertension TAKE 1 TABLET EVERY DAY 90 tablet 3 025 Active amLODIPine (NORVASC) 10 MG tabletIndications :Primary hypertension TAKE 1 TABLET EVERY DAY 90 tablet 3 025 Active glipizide (GLUCOTROL) 10 MG tablet TAKE 1 TABLET TWICE DAILY BEFORE MEALS 180 tablet 3 025 Active tiZANidine (ZANAFLEX) 4 MG tablet TAKE 1 TABLET AT NIGHT NEEDED FOR MUSCLE SPASM(S) 90 tablet 3 025 Active multivitamin with minerals tablet tablet Take 1 tablet by mouth Daily. Centrum Senior GlucoRevive ([place] and cinnamon) Active empagliflozin (Jardiance) 10 MG tablet tablet Take 1 tablet by mouth Daily. 90 tablet 3 025 Active pantoprazole (PROTONIX) 40 MG EC tabletIndications :Gastroesophageal reflux disease without esophagitis Take 1 tablet by mouth Daily. 90 tablet 1 025 Active Insulin Glargine (Lantus SoloStar) 100 UNIT/ML injection pen Inject 80 Units under the skin into the appropriate area as directed Every Night. INJECT 60 TO 80 UNITS UNDER THE SKIN ONE TIME DAILY DIRECTED 15 mL 025 Active Lancets (onetouch ultrasoft) lancets Take blood sugar once daily E11.9 100 each 2 025 Active tamsulosin (FLOMAX) 0.4 MG capsule 24 hr capsuleIndication s:Benign prostatic hyperplasia with weak urinary stream TAKE 1 CAPSULE EVERY DAY 90 capsule 3 025 Active pregabalin (LYRICA) 150 MG capsuleIndication s:Type 2 diabetes mellitus with diabetic autonomic neuropathy, without long-term current use of insulin TAKE 1 CAPSULE EVERY 12 HOURS 180 capsule 025 Active glucose blood (True Metrix Blood Glucose Test) test stripIndications: Type 2 diabetes mellitus with hyperglycemia, with long-term current use of insulin Use as instructed 100 each 2 025 Active Insulin Pen Needle (Pen [place]) 31G X 8 MM miscIndications:T ype 2 diabetes mellitus with hyperglycemia, with long-term current use of insulin Use 1 Needle Daily. 100 each 1 025 Active Semaglutide, 1 MG/DOSE, (OZEMPIC) 2 MG/1.5ML solution pen-injectorIndic ations:Type 2 diabetes mellitus with hyperglycemia, with long-term current use of insulin Inject 1 mg under the skin into the appropriate area as directed 1 (One) Time Per Week. 1.5 mL 3 025 Active nystatin (MYCOSTATIN) 133975 UNIT/GM cream Apply 1 Application topically to the appropriate area as directed 2 (Two) Times a Day. 30 g 025 Active LORazepam (ATIVAN) 2 MG tabletIndications :Primary insomnia Take 1 tablet by mouth Every 6 (Six) Hours As Needed for Anxiety. 60 tablet 025 Active sertraline (ZOLOFT) 50 MG tabletIndications :Primary insomnia Take 1 tablet by mouth Daily. 90 tablet 3 025 Active nystatin (MYCOSTATIN) 648170 UNIT/GM creamIndications: Yeast dermatitis APPLY TOPICALLY TO THE APPROPRIATE AREA DIRECTED 2 (TWO) TIMES A DAY. 30 g 11 024 2024 Discontinued glucose blood (True Metrix Blood Glucose Test) test strip TEST BLOOD SUGAR TWO TIMES DAILY 100 each 2 024 2024 Discontinued(R eorder) sertraline (ZOLOFT) 50 MG tabletIndications :Primary insomnia TAKE 1 TABLET EVERY DAY 90 tablet 3 025 2024 Discontinued(R eorder) Semaglutide, 1 MG/DOSE, (OZEMPIC) 2 MG/1.5ML solution pen-injectorIndic ations:Type 2 diabetes mellitus with hyperglycemia, with long-term current use of insulin Inject 1 mg under the skin into the appropriate area as directed 1 (One) Time Per Week. 1.5 mL 3 025 2024 Discontinued(R eorder) pregabalin (LYRICA) 150 MG capsuleIndication s:Type 2 diabetes mellitus with diabetic autonomic neuropathy, without long-term current use of insulin Take 1 capsule by mouth Every 12 (Twelve) Hours for 90 days. 180 capsule 025 2024 Discontinued LORazepam (ATIVAN) 2 MG tabletIndications :Primary insomnia TAKE 1 TABLET EVERY 6 HOURS NEEDED FOR ANXIETY 60 tablet 025 2024 Discontinued(R eorder) valACYclovir (Valtrex) 1000 MG tablet Take 1 tablet by mouth 3 (Three) Times a Day for 7 days. 21 tablet 025 2024 Active Problems Problem Noted Date Diagnosed Date Benign prostatic hyperplasia with weak urinary s tream 07/11/2023 Assessment & Plan (08/24/2024 10:01 PM EDT): Approximately one year ago patient had complaints of frequent nighttime urination, approximately 3-4 episodes. He also noted weak in urinary stream and urgency. He denies any feelings of urinary retention, hematuria or urinary obstruction. He was initiated on tamsulosin 0.5 mg nightly which she states has given him full resolution of his symptom Assessment & Plan (04/24/2024 11:54 AM EST): Approximately one year ago patient had complaints of frequent nighttime urination, approximately 3-4 episodes. He also noted weak in urinary stream and urgency. He denies any feelings of urinary retention, hematuria or urinary obstruction. He was initiated on tamsulosin 0.5 mg nightly which she states has given him full resolution of his symptom Assessment & Plan (01/23/2024 6:18 PM EST): Approximately 9 months ago ago patient had complaints of frequent nighttime urination, approximately 3-4 episodes. He also noted weak in urinary stream and urgency. He denies any feelings of urinary retention, hematuria or urinary obstruction. He was initiated on tamsulosin 0.5 mg nightly which she states has given him full resolution of his symptom Assessment & Plan (10/10/2023 5:52 PM EDT): His last visit 3 months ago patient had complaints of frequent nighttime urination, approximately 3-4 episodes. He also noted weak in urinary stream and urgency. He denies any feelings of urinary retention, hematuria or urinary obstruction. He was initiated on tamsulosin 0.5 mg nightly which she states has given him full resolution of his symptom Assessment & Plan (07/11/2023 8:25 AM EDT): Patient has complaints today of frequent nighttime urination, approximately 3-4 episodes. He also notes weekend urinary stream and urgency. He denies any feelings of urinary retention, hematuria or urinary obstruction. Will initiate tamsulosin 0.4 mg nightly and continue to monitor Morbid (severe) obesity due to excess calories 0 07/09/2023 Assessment & Plan (08/24/2024 10:06 PM EDT): Patient's (Body mass index is 39.89 kg/m .) indicates that they are obese (BMI >30) with health conditions that include obstructive sleep apnea, hypertension, coronary heart disease, diabetes mellitus, dyslipidemias, and GERD . Weight is unchanged. BMI is above average; BMI management plan is completed. We discussed portion control and increasing exercise. Assessment & Plan (04/24/2024 11:59 AM EST): Patient's (Body mass index is 40.46 kg/m .) indicates that they are morbidly/severely obese (BMI > 40 or > 35 with obesity - related health condition) with health conditions that include obstructive sleep apnea, hypertension, coronary heart disease, diabetes mellitus, dyslipidemias, and osteoarthritis . Weight is worsening. BMI is above average; BMI management plan is completed. We discussed portion control and increasing exercise. Assessment & Plan (10/10/2023 5:50 PM EDT): Patient's (Body mass index is 41.9 kg/m .) indicates that they are morbidly/severely obese (BMI > 40 or > 35 with obesity - related health condition) with health conditions that include obstructive sleep apnea, hypertension, diabetes mellitus, dyslipidemias, and osteoarthritis . Weight is unchanged. BMI is above average; BMI management plan is completed. We discussed portion control and increasing exercise. Assessment & Plan (07/11/2023 8:20 AM EDT): Patient's (Body mass index is 41.9 kg/m .) indicates that they are morbidly/severely obese (BMI > 40 or > 35 with obesity - related health condition) with health conditions that include obstructive sleep apnea, hypertension, coronary heart disease, diabetes mellitus, dyslipidemias, and osteoarthritis . Weight is unchanged. BMI is above average; BMI management plan is completed. We discussed portion control and increasing exercise. Yeast dermatitis 04/09/2023 Assessment & Plan (04/09/2023 4:48 PM EST): Patient with yeast dermatitis of this of the groin, he was sending a prescription for nystatin cream on last visit but states it required prior authorization and once approval went through he did not go pick up man the medication. Will send in prescription for twice daily nystatin cream to be applied as directed to affected area Acute mucoid otitis media of both ears Assessment & Plan (02/08/2023 6:08 PM EST): Patient was treated for bronchitis at [facility] [[email or web address] 2 weeks ago. Treatment regimen included Augmentin, prednisone and Tessalon Perles. He states that while he has had significant improvement in those symptoms he experiences chest tightness, wheezing and cough has continued. He also now has bilateral ear pain. Physical exam findings consistent with acute mucoid otitis media of both ears.. He is being given 10- day course of cefdinir to address his otitis media. Will also give prescription for Bromfed for ongoing cough and congestion from bronchitis. Other constipation 01/08/2023 Assessment & Plan (01/08/2023 1:22 PM EST): Responds well to miralax Aortic stenosis, mild 10/16/2022 Assessment & Plan (10/16/2022 1:04 PM EDT): Echocardiogram from 12/12/2022 shows mild aortic stenosis. - We will consider a repeat echo at next office visit in 6 months. Fungal infection of the groin 10/04/2022 Assessment & Plan (10/04/2022 12:02 PM EDT): Patient reports long-term issues with fungal rash in suprapubic groin fold. Will prescribe nystatin Obstructive sleep apnea 10/04/2022 Assessment & Plan (08/24/2024 10:06 PM EDT): Patient reports better compliance with PAP uses after getting a new, smaller PAP mask Assessment & Plan (04/24/2024 11:59 AM EST): Patient reports better compliance with PAP uses after getting a new, smaller PAP mask Assessment & Plan (01/23/2024 6:17 PM EST): Patient reports better compliance with PAP uses after getting a new, smaller PAP mask Assessment & Plan (10/10/2023 5:50 PM EDT): Patient reports better compliance with PAP uses after getting a new, smaller PAP mask Assessment & Plan (07/11/2023 8:21 AM EDT): She reports better compliance since getting a new, smaller PAP mask. Followed at Dr. Blevins's office. Assessment & Plan (05/31/2023 4:02 PM EDT): Patient baseline AHI unknown. He has been on CPAP therapy for several years. Patient's recent titration study showed a successful CPAP titration to 8 cm. Download on his current machine shows good compliance and control. Mask fit is comfortable. He is wanting to get a new machine because his is greater than 5 years old, and he has a piece of cardboard between the humidity tray and the machine to keep it from making noise. Patient states his sleep feels rested. He says he cannot sleep without having his CPAP. He is receiving benefit from PAP therapy. Plan to continue current treatment. Order for new ResMed CPAP at the settings of 4-10 with PAP supplies has been sent to DME of patient choice. Assessment & Plan (04/26/2023 11:51 AM EST): Patient has no recent sleep study. He is wanting to see if he can get a new machine. He says his is greater than 5 years old. Last sleep study was done in [facility] several years ago. He state his machine sometimes makes a whistling noise that wakes him up. He also states the pressures adjusting up and down at night wake him up and he has to do the Ramp for 45 minutes to get back to sleep. Assessment & Plan (04/09/2023 4:46 PM EST): Patient reports excellent compliance with PAP use Assessment & Plan (01/09/2023 11:59 AM EST): Patient reports excellent compliance with nightly PAP use, followed by Dr. Blevins Assessment & Plan (10/17/2022 1:42 PM EDT): Patient was diagnosed with sleep apnea over 10 years ago and currently on PAP therapy. He reports that he is doing well on PAP therapy with good compliance. He is using a nasal mask and does well with that. Airflow is comfortable. He denies excessive daytime sleepiness or fatigue. He is needing an order for new PAP supplies. Download reviewed and interpreted, compliance is 90%, AHI is 3.7 - Follow-up in 6 months. - Order for supplies sent to [facility]. Assessment & Plan (10/04/2022 12:01 PM EDT): Patient reports long-term diagnosis of sleep apnea. Followed by pulmonology in [place]. He will need to establish care with a sleep medicine clinic here in town for reevaluation of Pap prescription. Referral to sleep medicine, Dr. Blevins Annual physical exam 10/04/2022 Assessment & Plan (10/04/2022 12:40 PM EDT): Patient presents today for initial Medicare wellness visit. Follow-up for chronic conditions including hypertension, insomnia, stage IIIa CKD, spinal stenosis, hyperlipidemia, EJ and type 2 diabetes. He has been evaluated by neurosurgery locally after being told in [place] he would require back surgery for spinal stenosis and neurogenic claudication. Recent neurosurgery suggestion is for pain management through epidural injection, currently not candidate for surgery due to obesity and uncontrolled type 2 diabetes. Rechecking A1c today, last result 8.6%. He is in need of sleep medicine referral to update PAP settings. Ordering Cologuard today to update colon cancer screening, last Cologuard in 2020. Screening PSA level to be drawn today as well. Diabetic foot check performed and satisfactory. He is still in need of updated diabetic eye exam. Spinal stenosis, lumbar brenda on, with neurogenic claudication 09/25/2022 Assessment & Plan (08/24/2024 10:13 PM EDT): He has been evaluated by neurosurgery and pain management for his spinal stenosis. Neurosurgery wanted to avoid surgical intervention due to his weight and uncontrolled A1c, per their report based off of his MRI he does have some advanced level degenerative changes in the L3-4 facets. He was subsequently referred to physical therapy which has helped his pain and mobility issues significantly. Assessment & Plan (04/24/2024 11:55 AM EST): He has been evaluated by neurosurgery and pain management for his spinal stenosis. Neurosurgery wanted to avoid surgical intervention due to his weight and uncontrolled A1c, per their report based off of his MRI he does have some advanced level degenerative changes in the L3-4 facets. He was subsequently referred to physical therapy which has helped his pain and mobility issues significantly. Assessment & Plan (01/23/2024 6:16 PM EST): He has been evaluated by neurosurgery and pain management for his spinal stenosis. Neurosurgery wanted to avoid surgical intervention due to his weight and uncontrolled A1c, per their report based off of his MRI he does have some advanced level degenerative changes in the L3-4 facets. He was subsequently referred to physical therapy which has helped his pain and mobility issues significantly. Assessment & Plan (10/10/2023 5:48 PM EDT): He has been evaluated by neurosurgery and pain management for his spinal stenosis. Neurosurgery wanted to avoid surgical intervention due to his weight and uncontrolled A1c, per their report based off of his MRI he does have some advanced level degenerative changes in the L3-4 facets. He was subsequently referred to physical therapy which has helped his pain and mobility issues significantly. Assessment & Plan (07/11/2023 8:23 AM EDT): Patient has been evaluated by neurosurgery and now referred to pain management. Patient reports they would like to avoid surgery due to his weight and uncontrolled A1c. Per neurosurgery, based off of his MRI he does have some advanced level degenerative changes in the L3-4 facets as well as the interspinous bursa looks like it probably has a cyst in it at the L3-4 area. This is likely the cause of a lot of his low back pain when he is laying down at night. Patient does have pretty predictable pain whenever he is walking that radiates down the lateral aspect of his thigh. Patient also has diabetic peripheral neuropathy in the left foot and has chronic burning in his left foot he notes excellent benefit from epidural injections that he received thus far. Patient also feels that physical therapy helped with his pain and mobility issues. Assessment & Plan (04/09/2023 4:47 PM EST): barbara has been evaluated by neurosurgery and now referred to pain management. Patient reports they would like to avoid surgery due to his weight and uncontrolled A1c. Per neurosurgery, based off of his MRI he does have some advanced level degenerative changes in the L3-4 facets as well as the interspinous bursa looks like it probably has a cyst in it at the L3-4 area. This is likely the cause of a lot of his low back pain when he is laying down at night. Patient does have pretty predictable pain whenever he is walking that radiates down the lateral aspect of his thigh. Patient also has diabetic peripheral neuropathy in the left foot and has chronic burning in his left foot he notes excellent benefit from epidural injections that he received thus far. Patient also feels that physical therapy is helping with his pain and mobility issues. Assessment & Plan (02/08/2023 6:04 PM EST): barbara has been evaluated by neurosurgery and now referred to pain management. Patient reports they would like to avoid surgery due to his weight and uncontrolled A1c. Per neurosurgery, based off of his MRI he does have some advanced level degenerative changes in the L3-4 facets as well as the interspinous bursa looks like it probably has a cyst in it at the L3-4 area. This is likely the cause of a lot of his low back pain when he is laying down at night. Patient does have pretty predictable pain whenever he is walking that radiates down the lateral aspect of his thigh. Patient also has diabetic peripheral neuropathy in the left foot and has chronic burning in his left foot he notes excellent benefit from epidural injections that he received thus far. Patient also feels that physical therapy is helping with his pain and mobility issues. I encouraged him to continue current physical therapy evaluation and treatment at this time. Assessment & Plan (01/09/2023 11:57 AM EST): Patient has been evaluated by neurosurgery and now referred to pain management. Patient reports they would like to avoid surgery due to his weight and uncontrolled A1c. Per neurosurgery, based off of his MRI he does have some advanced level degenerative changes in the L3-4 facets as well as the interspinous bursa looks like it probably has a cyst in it at the L3-4 area. This is likely the cause of a lot of his low back pain when he is laying down at night. Patient does have pretty predictable pain whenever he is walking that radiates down the lateral aspect of his thigh. Patient also has diabetic peripheral neuropathy in the left foot and has chronic burning in his left foot he notes excellent benefit from epidural injections that he received thus far. Assessment & Plan (10/04/2022 12:00 PM EDT): Patient has been evaluated by neurosurgery and now referred to pain management. Patient reports they would like to avoid surgery due to his weight and uncontrolled A1c. Per neurosurgery, based off of his MRI he does have some advanced level degenerative changes in the L3-4 facets as well as the interspinous bursa looks like it probably has a cyst in it at the L3-4 area. This is likely the cause of a lot of his low back pain when he is laying down at night. Patient does have pretty predictable pain whenever he is walking that radiates down the lateral aspect of his thigh. Patient also has diabetic peripheral neuropathy in the left foot and has chronic burning in his left foot -Scheduled to begin epideral injections with pain management next week Heart murmur 07/09/2022 Assessment & Plan (07/09/2022 9:33 AM EDT): Patient reports murmur has been present since , he has had full cardiovascular evaluation without abnormal findings per his report. This included heart catheterization that required no intervention Primary insomnia 07/09/2022 Assessment & Plan (08/24/2024 10:07 PM EDT): Longstanding pattern of insomnia, he is utilizing [...] substance agreement and up-to-date UDS on file Assessment & Plan (04/24/2024 11:55 AM EST): Longstanding pattern of insomnia, he is utilizing [...] substance agreement and up-to-date UDS on file Assessment & Plan (01/23/2024 6:16 PM EST): Longstanding pattern of insomnia, he is utilizing [...] substance agreement and up-to-date UDS on file Assessment & Plan (10/10/2023 5:48 PM EDT): Longstanding pattern of insomnia, he is utilizing [...] substance agreement and up-to-date UDS on file Assessment & Plan (07/11/2023 8:22 AM EDT): Longstanding pattern of insomnia, he is utilizing [...] substance agreement and up-to-date UDS on file Assessment & Plan (04/09/2023 4:47 PM EST): Longstanding pattern of insomnia, he is utilizing lorazepam nightly with good benefit for a number of years. Poor response in the past to medication such as trazodone, Ambien and Lunesta. Reviewed Roberto with satisfactory findings. He has controlled substance agreement and up-to-date UDS on file -Continue lorazepam 0.5mg Assessment & Plan (01/09/2023 11:58 AM EST): Longstanding pattern of insomnia, he is utilizing lorazepam nightly with good benefit for a number of years. Poor response in the past to medication such as trazodone, Ambien and Lunesta. Reviewed Roberto with satisfactory findings. He has controlled substance agreement and up-to-date UDS on file -Continue lorazepam 0.5mg Assessment & Plan (10/04/2022 10:47 AM EDT): Longstanding pattern of insomnia, he is utilizing lorazepam nightly with good benefit for a number of years. Poor response in the past to medication such as trazodone, Ambien and Lunesta. Reviewed Roberto with satisfactory findings. He has controlled substance agreement and up-to-date UDS on file -Continue lorazepam 0.5mg Assessment & Plan (07/09/2022 9:28 AM EDT): Patient reports longstanding history of insomnia. He has utilized lorazepam nightly with good benefit. Reviewed Roberto with satisfactory findings. Reviewed controlled substance agreement, signed by patient. Incomplete cauda equina syndrome 07/04/2022 Assessment & Plan (07/04/2022 1:51 PM EDT): Buckling of the cauda equina nerve roots due to lumbar spinal stenosis Lumbar radiculopathy 07/04/2022 Assessment & Plan (08/24/2024 10:13 PM EDT): Patient was followed and approved for neurosurgery prior to leaving [place]. MRI reviewed in office today showing L3-5 circumferential disc bulging, ligamentum flavum infolding and facet arthropathy contributing to left subarticular zone impingement of the traversing L5 nerve root, mild spinal canal stenosis and mild bilateral neural foraminal stenosis. Was evaluated by neurosurgery at [facility] who declined surgery at this time, receiving benefit from pain management Assessment & Plan (04/24/2024 11:59 AM EST): Patient was followed and approved for neurosurgery prior to leaving [place]. MRI reviewed in office today showing L3-5 circumferential disc bulging, ligamentum flavum infolding and facet arthropathy contributing to left subarticular zone impingement of the traversing L5 nerve root, mild spinal canal stenosis and mild bilateral neural foraminal stenosis. Was evaluated by neurosurgery at [facility] who declined surgery at this time, receiving benefit from pain management Assessment & Plan (01/09/2023 11:59 AM EST): atient was followed and approved for neurosurgery prior to leaving [place]. MRI reviewed in office today showing L3-5 circumferential disc bulging, ligamentum flavum infolding and facet arthropathy contributing to left subarticular zone impingement of the traversing L5 nerve root, mild spinal canal stenosis and mild bilateral neural foraminal stenosis. Was evaluated by neurosurgery at [facility] who declined surgery at this time, receiving benefit from pain management Assessment & Plan (07/09/2022 9:32 AM EDT): Patient was followed and approved for neurosurgery prior to leaving [place]. MRI reviewed in office today showing L3-5 circumferential disc bulging, ligamentum flavum infolding and facet arthropathy contributing to left subarticular zone impingement of the traversing L5 nerve root, mild spinal canal stenosis and mild bilateral neural foraminal stenosis. -We will refer to [facility] neurosurgery for further evaluation Type 2 diabetes mellitus wit h hyperglycemia, with long-term current use of insulin 07/04/2022 Assessment & Plan (08/24/2024 10:12 PM EDT): Patient has now established care with endocrinology. They added SGLT-2 jardiance at 10mg daily. Continued ozempic 1mg weekly, lantus 80mg nightly. Diabetic foot exam stable. No confirmed retinopathy Assessment & Plan (07/01/2024 2:38 PM EDT): Diabetes is improving with treatment. We discussed treatment options. We discussed adding SGLT-2 inhibitor. Potential s/e discussed. Diabetes will be reassessed in 3 months. Assessment & Plan (04/24/2024 12:02 PM EST): Patient's A1c has improved, however still significantly elevated. His last visit 3 months ago his A1c was noted to be 11%, today coming in at 9.7%. States that he has been checking his a.m. fasting glucose daily with an average anywhere between 190-210. Patient was referred to endocrinology, however has had to reschedule his appointment due to weather and transportation. Currently utilizing Ozempic 0.5 mg weekly dosing, however it is causing heartburn. He also utilizes glipizide 10 mg twice daily, Lantus 80 units nightly. In the past patient use metformin but was discontinued due to decreased renal function. Patient has utilized oral Rybelsus in the past but it became a financial burden. Patient does have interest in insulin pump, prompting referral to endocrinology, however due to transportation and weather has had to reschedule. Is now set to see them on June 21 Assessment & Plan (01/23/2024 6:15 PM EST): Patient does check his glucose at home but verbalizes it has been running somewhat elevated. He brought in averages for review today which appear to be running high. He is currently utilizing Lantus 80 units nightly, glipizide 10 mg twice daily and Rybelsus 14 mg daily. Patient is unable to utilize metformin due to decreased kidney function. He admittedly has not been very compliant with his diet. Result his A1c in office today is 11.1%. During his last visit he was referred to endocrinology for further evaluation but has not had that appointment as of yet. We did order a continuous glucose monitor that he has in his possession but was awaiting his endocrinology visit to initiate use. He has referral to endocrinology was prompted by his interest in an insulin pump due to poorly controlled glucose. -For now we will continue his glipizide and Lantus at current doses, glipizide at 10 mg twice daily and Lantus 80 units nightly. -Will discontinue Rybelsus -Will initiate semaglutide 0.25 mg weekly, in the past this has been financial burden, however hopefully may be more affordable with cardiac coverage as well. -Awaiting endocrinology appointment scheduled for February. Assessment & Plan (10/10/2023 5:47 PM EDT): Patient's diabetes is poorly controlled despite increasing Rybelsus during last visit. A1c in office today is 9.2%. He admittedly is not restricting his diet at all, notes eating all the refined sugars and carbohydrates he desires. He states he often overeats as well. Currently utilizing regimen of glipizide 10 mg twice daily before meals, Lantus 80 units daily and Rybelsus 14 mg daily. -Discussed initiation of continuous glucose system to which she he is agreeable. We discussed initiation of sliding scale with meal coverage as well. Patient has inquired about insulin pump. If he is interested in insulin pump will need referral to endocrinology. For now we will continue current medications, we will go ahead and order continuous glucose monitor but replace referral to endocrinology for further glucose management. Assessment & Plan (07/11/2023 8:24 AM EDT): Home glucose readings reviewed. He presents averages of 130,134,150,157 and 158. A1C in office today is 8.5. Patient currently utilizing Rybelsus 7 mg daily, glipizide 10 mg daily and Lantus 80 units nightly. Will increase his Rybelsus to 14 mg daily and continue to monitor Assessment & Plan (04/09/2023 4:45 PM EST): Patient continues to check his glucose twice daily, reports glucose readings at home to be 81-175 fasting. During his last visit 3 months ago he was initiated on Rybelsus with A1c of 8.6. A1c showing slight improvement to 8.3. Patient was supposed to utilize a 3 mg tablet Rybelsus for 4 weeks then transition to 7 mg, however he tells me today he just began taking 7 mg dose approximately 1 week ago. Continues to check his glucose twice daily with readings ranging from 81-1 75. In addition to Rybelsus he also utilizes glipizide 10 mg twice daily. His metformin was stopped as his kidney disease advanced. -Continue Rybelsus 7 mg daily -Continue glipizide 10 mg twice daily -Continue Lantus as directed. Assessment & Plan (02/08/2023 6:06 PM EST): Currently, patient's glucose readings have been elevated, he is no longer able to afford his Tradjenta, he is currently in the Medicare donut hole so cost is almost $500 monthly. As a result he has home glucose readings have gone up. Relates pattern of generally below 200 in the morning, most mornings averaging around 150. Discussed weekly injectable medications which she feels would be too expensive at this time. He is interested in a GLP class medication for potential help with weight loss. We have not Rybelsus samples available in office today. Patient educated on mechanism of action as well as appropriate administration. Patient will initiate Rybelsus 3 mg once daily for 30 days with intent to increase to 7 mg daily after the fourth 4 weeks. Assessment & Plan (01/09/2023 12:03 PM EST): Patient continues to check his fasting blood sugar every morning. He notes most readings below 100 but peak reading to be 138. His A1c is gradually improving, down to 8.1% in office today. Currently utilizing Lantus and glipizide. He was previously on Tradjenta but due to cost has had to stop. -Continue glipizide 10 mg twice daily -Continue Lantus 60 to 100 units under the skin 1 times daily as directed Assessment & Plan (10/04/2022 12:35 PM EDT): Checking AM fasting glucose, 149 this morning, occassionally in the 200s. We are rechecking A1c today, last A1c 8.6%. Currently utilizing Lantus 60-80 units daily, glipizide 5 mg twice daily and Tradjenta 5 mg daily. He reports a $400 co-pay monthly for the Tradjenta, we will investigate cheaper options for glucose control. Up-to-date satisfactory diabetic foot exam. He is in need of updated eye exam. Obtaining urine microalbumin today Assessment & Plan (07/09/2022 9:33 AM EDT): Checks glucose once daily. 127 average AM. Taken off metformin by nephrology. Started on tradjenta and insulin. Checking A1c in office today. We will need to establish care with local eye doctor, will need evaluation for diabetic retinopathy. Stage 3a chronic kidney disease 07/04/2022 Assessment & Plan (08/24/2024 10:10 PM EDT): Patient has been followed by [facility] with a baseline creatinine noted to be 1.5-1.6 range, GFR 47. Rechecking metabolic panel today Assessment & Plan (07/01/2024 2:17 PM EDT): Continue ozempic. We discussed adding SGLT-2 inhibitor. Continue nephrology follow up. Assessment & Plan (04/24/2024 11:58 AM EST): Patient has been followed by [facility] with a baseline creatinine noted to be 1.5-1.6 range, GFR 47 since labs last obtained 2 months ago showing ongoing stability. Assessment & Plan (01/23/2024 6:16 PM EST): Patient has been followed by [facility] with a baseline creatinine noted to be 1.5-1.6 range, GFR 47 since labs last obtained 2 months ago showing ongoing stability. Assessment & Plan (10/10/2023 5:48 PM EDT): Patient has been followed by [facility] with a baseline creatinine noted to be 1.5-1.6 range, GFR 47 since labs last obtained 2 months ago showing ongoing stability. Assessment & Plan (07/11/2023 8:23 AM EDT): Now seeing nephrology associatess with GFR 55 on last check. As a result of decreased kidney function he has been taken off metformin by his worksite wellness practitioner in [place] before relocating. At that time his A1c has been suboptimally controlled. Today we discussed need for tight glycemic and blood pressure control to preserve renal function. I discussed avoidance of nephrotoxic agents including NSAIDs. He tells me there is no way that he can completely give up NSAIDs due to chronic back pain issues. Checking CMP today Assessment & Plan (04/09/2023 4:47 PM EST): Now seeing nephrology associatess with GFR 55 on last check. As a result of decreased kidney function he has been taken off metformin by his worksite wellness practitioner in [place] before relocating. At that time his A1c has been suboptimally controlled. Today we discussed need for tight glycemic and blood pressure control to preserve renal function. I discussed avoidance of nephrotoxic agents including NSAIDs. He tells me there is no way that he can completely give up NSAIDs due to chronic back pain issues. Assessment & Plan (01/09/2023 11:57 AM EST): Now seeing nephrology associatess with GFR 55 on last check. As a result of decreased kidney function he has been taken off metformin by his worksite wellness practitioner in [place] before relocating. At that time his A1c has been suboptimally controlled. Today we discussed need for tight glycemic and blood pressure control to preserve renal function. I discussed avoidance of nephrotoxic agents including NSAIDs. He tells me there is no way that he can completely give up NSAIDs due to chronic back pain issues. Assessment & Plan (10/04/2022 10:45 AM EDT): Now seeing nephrology associatess with GFR 55 on last check. As a result of decreased kidney function he has been taken off metformin by his worksite wellness practitioner in [place] before relocating. At that time his A1c has been suboptimally controlled. Today we discussed need for tight glycemic and blood pressure control to preserve renal function. I discussed avoidance of nephrotoxic agents including NSAIDs Assessment & Plan (07/09/2022 9:26 AM EDT): Patient reports being followed by nephrology in [place]. However, he is unsure of his baseline renal function. Need to evaluate nephrotoxic agents such as NSAIDs. History of smoking 07/04/2022 Assessment & Plan (08/24/2024 10:04 PM EDT): Patient 1 pack/day smoker for 20 years, stopped in 1998 Assessment & Plan (07/11/2023 8:20 AM EDT): Patient 1 pack/day smoker for 20 years, stopped in 1998 Assessment & Plan (10/04/2022 12:02 PM EDT): Patient 1 pack/day smoker for 20 years, stopped in 1998 Assessment & Plan (07/04/2022 2:00 PM EDT): Stopped 1998. 20 years 1.5ppd Primary hypertension 07/04/2022 Assessment & Plan (08/24/2024 10:07 PM EDT): BP well controlled in office today, 122/74. Continue amlodipine 10mg daily, HCTZ 25mg daily, metoprolol 100mg BID Assessment & Plan (07/01/2024 2:15 PM EDT): Hypertension is stable and controlled. Continue current treatment regimen. Blood pressure will be reassessed in 3 months. Assessment & Plan (04/24/2024 11:57 AM EST): Blood pressure well-controlled in office today, 118/72. Currently utilizing amlodipine 10 mg daily, HCTZ 25 mg daily and metoprolol 100 mg twice daily Assessment & Plan (01/23/2024 6:17 PM EST): Blood pressure resuming LAKISHA control in office today, 110/74. Continue amlodipine 10 mg daily, continue HCTZ 25 mg daily and continue metoprolol 100 mg twice daily Assessment & Plan (10/10/2023 5:50 PM EDT): Patient's blood pressure well-controlled in office today, 130/82. Currently utilizing regimen of amlodipine 10 mg daily, HCTZ 25 mg daily and metoprolol 100 mg twice daily Assessment & Plan (07/11/2023 8:21 AM EDT): Patient's blood pressure very well-controlled in office today, 112/74. Currently utilizing regimen of amlodipine 10 mg daily, HCTZ 25 mg daily, metoprolol 100 mg twice daily Assessment & Plan (05/31/2023 3:59 PM EDT): Patient's blood pressure is managed by his PCP. Blood pressure is well- controlled in the office today 104/52. Patient to continue on his current medicines along with his CPAP therapy. Untreated sleep apnea may potentiate hypertension requiring multiple medications to help control. Assessment & Plan (04/26/2023 12:27 PM EST): Patients BP is well controlled 116/80 with Amlodipine, HCTZ, metoprolol, and pap therapy. Untreated sleep apnea may potentiate HTN. Plan to continue current medications and pap therapy. Assessment & Plan (04/09/2023 4:47 PM EST): Blood pressure continues to be well-controlled on current medications, 136/82 in office today. Continue HCTZ 25 mg once daily as well as metoprolol 100 mg twice daily. Continue amlodipine 10 mg daily Assessment & Plan (02/08/2023 6:05 PM EST): BP continues to be well-controlled on current medications, 108/70 in office today. Continue HCTZ 25 mg once daily and metoprolol 100 mg twice daily Assessment & Plan (01/09/2023 11:58 AM EST): BP well controlled on current meds, 112/68. Continue current medications HCTZ 25 mg once daily and metoprolol 100mg Assessment & Plan (10/16/2022 1:02 PM EDT): Hypertension is stable . Continue current treatment regimen. Blood pressure will be reassessed at the next regular appointment. Assessment & Plan (10/04/2022 10:48 AM EDT): Excellent control on current medications, 136/74 in office today. Notes adequate blood pressure control readings from home as well. -Continue amlodipine 10 mg once daily -Continue HCTZ 25 mg once daily -Continue metoprolol 100 mg twice daily Assessment & Plan (07/09/2022 9:30 AM EDT): Excellent control on current medications. He 130/72 in office today. 1. Amlodipine 10 mg once daily 2. Hydrochlorothiazide 25 mg once daily 3. Metoprolol 100 mg once daily Hyperlipidemia 07/04/2022 Assessment & Plan (08/24/2024 10:05 PM EDT): Patient continues to utilize daily fenofibrate 160mg and atorvastatin 40mg daily. Rechecking lipids today. Assessment & Plan (07/01/2024 2:16 PM EDT): Continue statin and fenofibrate. Plan to check lipids next visit. Assessment & Plan (04/24/2024 11:55 AM EST): Currently utilizing atorvastatin 40 mg daily as well as fenofibrate 160 mg Assessment & Plan (01/23/2024 6:17 PM EST): His lipids last checked 2 months ago while utilizing atorvastatin 40 mg and fenofibrate 160 mg daily. Total cholesterol was 131, triglycerides were 203, HDL was 29 and LDL 68 Assessment & Plan (10/10/2023 5:51 PM EDT): His lipids last checked 2 months ago while utilizing atorvastatin 40 mg and fenofibrate 160 mg daily. Total cholesterol was 131, triglycerides were 203, HDL was 29 and LDL 68 Assessment & Plan (07/11/2023 8:20 AM EDT): Patient currently utilizing atorvastatin 40 mg and fenofibrate 160 mg. Rechecking lipid Assessment & Plan (04/09/2023 4:46 PM EST): Continue atorvastatin 40 mg daily as well as fenofibrate 160 mg daily Assessment & Plan (01/09/2023 9:57 AM EST): Continue atorvastatin 40 mg daily as well as fenofibrate 160 mg daily as ordered Assessment & Plan (10/04/2022 12:01 PM EDT): Last lipid check 3 months ago showing total cholesterol of 168, triglycerides 254, HDL 29 and LDL 96. At that time he was utilizing atorvastatin 20 mg daily. 3 months ago atorvastatin increased to 40 mg daily -Will recheck lipids today Assessment & Plan (07/09/2022 9:32 AM EDT): Patient currently utilizing atorvastatin 20 mg once daily and fenofibrate 160 mg once daily Coronary artery disease invo lving soboba coronary artery of soboba heart without angina pectoris 12/19/2021 Overview (07/19/2023): NM Cardiac PET Stress/Rest Result Date: 12/14/2021 ? There is a large, moderate intensity, reversible defect in the apical to mid anterior wall and inferoapex consistent with ischemia in the LAD territory. ? Myocardial blood flow reserve is abnormal in the LAD territory. ? Post-stress EF 57%. Cardiac catheterization Result Date: 03/31/2022 ? Chronic total occlusion to the LAD extending from the ostium to the distal vessel and fed by collaterals from the RCA ? Mild nonobstructive coronary artery disease involving the proximal LCx and proximal to mid RCA. ? Mildly elevated LVEDP at 24 mmHg ? Successful TR band closure to the right radial arterial access. Assessment & Plan (08/24/2024 10:01 PM EDT): Cardiac catheterization Result Date: 03/31/2022 Chronic total occlusion to the LAD extending from the ostium to the distal vessel and fed by collaterals from the RCA Mild nonobstructive coronary artery disease involving the proximal LCx and proximal to mid RCA. Mildly elevated LVEDP at 24 mmHg Successful TR band closure to the right radial arterial access. Assessment & Plan (07/01/2024 2:15 PM EDT): Continue ASA, statin and ozempic. We discussed use of SGLT-2 inhibitor. Assessment & Plan (04/24/2024 11:53 AM EST): LHC from 03/31/2022 revealed chronic total occlusion to the LAD extending from the ostium to the distal vessel and fed by collaterals from the RCA. Mild nonobstructive CAD involving the proximal circumflex and proximal to mid RCA. Patient denies chest pain, worsening shortness of breath or fatigue. Patient denies any current issues with chest pain, worsening shortness of breath or fatigue. Assessment & Plan (01/23/2024 6:17 PM EST): LHC from 03/31/2022 revealed chronic total occlusion to the LAD extending from the ostium to the distal vessel and fed by collaterals from the RCA. Mild nonobstructive CAD involving the proximal circumflex and proximal to mid RCA. Patient denies chest pain, worsening shortness of breath or fatigue. Patient denies any current issues with chest pain, worsening shortness of breath or fatigue. Assessment & Plan (10/10/2023 5:52 PM EDT): LHC from 03/31/2022 revealed chronic total occlusion to the LAD extending from the ostium to the distal vessel and fed by collaterals from the RCA. Mild nonobstructive CAD involving the proximal circumflex and proximal to mid RCA. Patient denies chest pain, worsening shortness of breath or fatigue. Patient denies any current issues with chest pain, worsening shortness of breath or fatigue. Assessment & Plan (07/11/2023 8:19 AM EDT): LHC from 03/31/2022 revealed chronic total occlusion to the LAD extending from the ostium to the distal vessel and fed by collaterals from the RCA. Mild nonobstructive CAD involving the proximal circumflex and proximal to mid RCA. Patient denies chest pain, worsening shortness of breath or fatigue. Patient denies any current issues with chest pain, worsening shortness of breath or fatigue. Repeat lipid panel when he returns fasting. Continue aspirin, atorvastatin, metoprolol and amlodipine at current doses. Assessment & Plan (04/09/2023 4:46 PM EST): LHC from 03/31/2022 revealed chronic total occlusion to the LAD extending from the ostium to the distal vessel and fed by collaterals from the RCA. Mild nonobstructive CAD involving the proximal circumflex and proximal to mid RCA. Patient denies chest pain, worsening shortness of breath or fatigue. Lipid panel from 10/04/2022 reviewed, total cholesterol 142, triglycerides 144, HDL 31 and LDL 85. -Continue aspirin, atorvastatin, metoprolol and amlodipine at current doses. Assessment & Plan (01/09/2023 9:57 AM EST): LHC from 03/31/2022 revealed chronic total occlusion to the LAD extending from the ostium to the distal vessel and fed by collaterals from the RCA. Mild nonobstructive CAD involving the proximal circumflex and proximal to mid RCA. Patient denies chest pain, worsening shortness of breath or fatigue. Lipid panel from 10/04/2022 reviewed, total cholesterol 142, triglycerides 144, HDL 31 and LDL 85. -Continue aspirin, atorvastatin, metoprolol and amlodipine at current doses. Assessment & Plan (10/16/2022 1:04 PM EDT): Coronary artery disease is stable . Continue current treatment regimen. Dietary sodium restriction. Regular aerobic exercise. Cardiac status will be reassessed in 6 months. LHC from 03/31/2022 revealed chronic total occlusion to the LAD extending from the ostium to the distal vessel and fed by collaterals from the RCA. Mild nonobstructive CAD involving the proximal circumflex and proximal to mid RCA. Patient denies chest pain, worsening shortness of breath or fatigue. Lipid panel from 10/04/2022 reviewed, total cholesterol 142, triglycerides 144, HDL 31 and LDL 85. -Continue aspirin, atorvastatin, metoprolol and amlodipine at current doses. Valvular heart disease 12/19/2021 Overview (07/19/2023): Echo Complete Result Date: 12/12/2021 ? TDS ? The aortic valve is trileaflet with moderate, diffuse calcification. ? Aortic Valve: There is trace regurgitation. There is mild stenosis. The peak gradient measures 33 mmHg. The mean gradient measures 18 mmHg. The peak aortic velocity was measured in the apical view. ? Mitral Valve: There is trace regurgitation. ? Tricuspid Valve: There is trace regurgitation. ? The RVSP is within normal limits estimated at 25 mmHg. ? Mild concentric left ventricular hypertrophy. ? Abnormal grade I (mild/impaired relaxation) left ventricular diastolic dysfunction. ? Normal left ventricular size and function. Ejection fraction: 55 %. Assessment & Plan (04/24/2024 11:58 AM EST): The aortic valve is trileaflet with moderate, diffuse calcification. Aortic Valve: There is trace regurgitation. There is mild stenosis. The peak gradient measures 33 mmHg. The mean gradient measures 18 mmHg. The peak aortic velocity was measured in the apical view. Mitral Valve: There is trace regurgitation. Tricuspid Valve: There is trace regurgitation. Assessment & Plan (01/23/2024 6:12 PM EST): The aortic valve is trileaflet with moderate, diffuse calcification. Aortic Valve: There is trace regurgitation. There is mild stenosis. The peak gradient measures 33 mmHg. The mean gradient measures 18 mmHg. The peak aortic velocity was measured in the apical view. Mitral Valve: There is trace regurgitation. Tricuspid Valve: There is trace regurgitation. GERD (gastroesophageal reflux disease) 8 Assessment & Plan (08/24/2024 10:04 PM EDT): Patient's insurance stopped covering pantoprazole, subsequently he had developed heartburn. Insurance ultimately did approve restarting pantoprazole with complete resolution of his GERD Assessment & Plan (04/24/2024 11:54 AM EST): Patient's insurance stopped covering pantoprazole, subsequently he has developed heartburn, unsure if it is just recurrence of GERD or if it is due to his Ozempic dosing. Will resend PA for pantoprazole Assessment & Plan (10/10/2023 5:51 PM EDT): Sees ongoing benefit from daily pantoprazole Hip pain, right 02/04/2018 Osteoarthritis of hip 02/03/2018 Gastric banding status 10/21/2014 Resolved Problems Problem Noted Date Diagnosed Date Resolved Date CKD (chronic kidney disease) 04/12/2022 10/10/2023 Troponin level elevated 12/19/2021 05/3 02/2023 Overview (07/19/2023): Added automatically from request for surgery [id number] Multiple closed fractures of ribs of left side 10/26/2021 07/19/2023 Irritable bowel syndrome with diarrhea 10/21/2014 08/24/2024 Encounters Date Type Department Care Team Description 09/02/2024 Refill [facility] [address] [place] [address] [place] [address] Nusrat Lamb APRN Primary insomnia 08/28/2024 Telephone [facility] [address] [place] [address] [place] [address] Nusrat Lamb APRN CONCERNS 08/19/2024 Refill [facility] [address] [place] [address] [place] [address] Nusrat Lamb, ROTARY FILTER OPERATOR Type 2 diabetes mellitus with hyperglycemia, with long-term current use of insulin 08/13/2024 1:30 PM EDT Office Visit [facility] [address] [place] [address] Nusrat Lamb, ROTARY FILTER OPERATOR Type 2 diabetes mellitus with hyperglycemia, with long-term current use of insulin (Primary Dx); Benign prostatic hyperplasia with weak urinary stream; Coronary artery disease involving soboba coronary artery of soboba heart without angina pectoris; Gastric banding status; History of smoking; Mixed hyperlipidemia; Lumbar radiculopathy; Morbid (severe) obesity due to excess calories; Obstructive sleep apnea; Primary hypertension; Primary insomnia; Stage 3a chronic kidney disease; Valvular heart disease; Medicare annual wellness visit, subsequent; Prostate cancer screening; Gastroesophageal reflux disease without esophagitis; Spinal stenosis, lumbar region, with neurogenic claudication 08/13/2024 Travel 08/12/2024 Refill [facility] [address] [place] [address] [place] [address] Nusrat Lamb APRN Type 2 diabetes mellitus with diabetic autonomic neuropathy, without long-term current use of insulin 08/10/2024 Patient Outreach [facility] Shruthi Odonnell RN 08/07/2024 Refill [facility] [address] [place] [address] [place] [address] Nusrat Lamb, ROTARY FILTER OPERATOR Primary insomnia 08/05/2024 Refill [facility] [address] [place] [address] [place] [address] Nusrat Lamb, ROTARY FILTER OPERATOR Benign prostatic hyperplasia with weak urinary stream 08/03/2024 Telephone [facility] [address] [place] [address] [place] [address] Nusrat Lamb, ROTARY FILTER OPERATOR CLARIFICATION ON OZEMPIC DOSAGE 08/03/2024 Telephone [facility] [address] [place] [address] [place] [address] Nusrat Lamb, ROTARY FILTER OPERATOR New Med Request 08/03/2024 [facility] [address] [place] [address] [place] [address] Nusrat Lamb, ROTARY FILTER OPERATOR Primary insomnia 07/15/2024 [facility] [address] [place] [address] [place] [address] Nusrat Lamb, ROTARY FILTER OPERATOR Type 2 diabetes mellitus with diabetic autonomic neuropathy, without long-term current use of insulin 07/14/2024 [facility] [address] [place] [address] [place] [address] Nusrat Lamb, ROTARY FILTER OPERATOR Primary insomnia 07/10/2024 Patient Outreach [facility] Nelida Samaniego RN 07/08/2024 [facility] [address] [place] [address] [place] [address] Nusrat Lamb, ROTARY FILTER OPERATOR Gastroesophageal reflux disease without esophagitis 07/01/2024 2:00 PM EDT Office Visit [facility] [address] [facility] [address] [place] [address] Sotero Dillon MD Type 2 diabetes mellitus with hyperglycemia, with long-term current use of insulin (Primary Dx); Primary hypertension; Mixed hyperlipidemia; Coronary artery disease involving soboba coronary artery of soboba heart without angina pectoris; Stage 3a chronic kidney disease 07/01/2024 Travel 06/26/2024 Refill [facility] [address] [place] [address] [place] [address] Nusrat Lamb, ROTARY FILTER OPERATOR 06/26/2024 External PBMM Data [facility] [address] [facility] [place] [address] Pharmacy, [employer] 06/15/2024 Refill [facility] [address] [place] [address] [place] [address] Nusrat Lamb, ROTARY FILTER OPERATOR Primary insomnia 06/12/2024 Patient Outreach [facility] [place] Nelida Cruz RN from Last 3 Months Immunizations Immunization Administration Dates Next Due Fluzone High-Dose 65+YRS 01/20/2024 Pneumococcal Conjugate 20-Valent (PCV20) 025 Shingrix 08/23/2022 Tdap 07/09/2023 Zoster, Unspecified 04/06/2021,04/05/2021 Family History Medical History Relation Name Comments Alcohol abuse Brother 1 Jun Cosby Drug abuse Brother 2 Jun Early Brother 2 Jun 50 yo Arthritis Father Jun Emanuel Hyperlipidemia Father Jun [place] Hypertension Father Jun Emanuel Anxiety disorder Mother Jackie Arthritis Mother Jackie COPD Mother Jackie Hearing loss Mother Jackie Hypertension Mother Jackie Hyperlipidemia Sister 1 Arabella Anoop Hyperlipidemia Sister 2 Carol Relation Name Status Comments Brother 1 Jun Cosby Brother 2 Jun Father Jun [place] Mother Jackie Sister 1 Arabella Anoop Sister 2 Carol Social History Tobacco Use Types Packs/Day Years Used Date Smoking Tobacco: Former Cigarettes 1.4 49.9 0 02/19/1972 - 02/18/1998 Smokeless Tobacco: Never Tobacco Cessation:Counseling Given: Not Answered Alcohol Use Standard Drinks/Week Comments Not Currently 0 (1 standard drink = 0.6 oz pur e alcohol) [facility] Utilities Answer Date Recorded In the past 12 months has th e electric, gas, oil, or water company [...] often do you attend chur ch or druze services? Never 07/26/2024 Do you belong to any clubs o r organizations such as baptist groups, unions, fraternal or athletic groups, or [...] Brief Depression Severity Measure Score 0 10/04/2022 [facility] [place] [facility] Occupat ional Health - Occupational Stress [...] any time in the past 12 m [facility], were you homeless or living in a intermediate (including now)? No 07/26/2024 Housing Stability Answer [...] AM EST Sexual Orientation Not on file Last Filed Vital Signs Vital Sign Reading [...] Mass Index 39.89 08/13/2024 1:18 PM EDT Plan of Treatment Upcoming Encounters Date Type Department Care Team (Late st Contact Info) Description 11/02/2024 11:15 AM EDT Office Visit [facility] [address] [place] [address] Shameka Redmond PA [address] [facility] [place] [address] [address] 11/12/2024 1:30 PM EDT Office Visit [facility] [address] [place] [address] Nusrat Lamb APRN [address] [place] [address] 02/25/2025 11:00 AM EST Office Visit [facility] [address] [place] [address] Sotero Dillon MD [address] [employer] [place] [address] [place], [place] [id number] Health Maintenance Due Date Last Done Comments COLON CANCER SCREENING 5 YEAR SIGMOIDOSCOPY 10/14/1995 COLONOSCOPY 10/14/1995 CT COLONOGRAPHY 10/14/1995 FECAL OCCULT BLOOD TEST 10/14/1995 FIT Testing (1 year) 10/14/1995 Hepatitis B (1 of 3 - Risk 3-dose series) 2010 LIPID PANEL 08/07/2024 08/08/2023, 0808/2022, 07/17/2022, Additional history exists DIABETIC FOOT EXAM 10/09/2024 10/10/2023, 0 10/10/2023, 10/04/2022, Additional history exists INFLUENZA VACCINE 11/18/2024 01/20/2024 DIABETIC EYE EXAM 02/05/2025 02/06/2024, , 01/26/2023, Additional history exists HEMOGLOBIN A1C 02/12/2025 08/13/2024, 03/0 07/2024, 01/20/2024, Additional history exists ZOSTER VACCINE (2 of 2) 03/23/2025 08/24/19 23, 04/06/2021, 04/05/2021 Postponed from 10/18/2022 (Patient Refused) COVID-19 Vaccine ( season) 2025 Postponed from 10/20/2023 (Patient Refused) ANNUAL WELLNESS VISIT 08/13/2025 08/13/2024 , 07/09/2023, 10/04/2022, Additional history exists URINE MICROALBUMIN-CREATININE RATIO (uACR) 08/13/2025 08/13/2024, 04/23/2024, 10/11/2023 COLOGUARD 10/15/2025 10/15/2022, 06/29/2019 COLORECTAL CANCER SCREENING 10/15/2025 TDAP/TD VACCINES (2 - Td or Tdap) 07/08/2033 07/09/2023 HEPATITIS C SCREENING Completed 07/17/2022, 023 AAA SCREEN ONCE Completed 03/19/2024 Pneumococcal Vaccine 50+ Completed 04/23/2024 Procedures Procedure Name Priority Date/Time Associated Diagnosis Comments POC ALBUMIN/CREATININE RATIO Routine 08/13/2024 3:26 PM EDT Type 2 diabetes mellitus with hyperglycemia, with long-term current use of insulin POCT GLYCOSYLATED HEMOGLOBIN (HGB A1C) Routine 08/13/2024 1:27 PM EDT Type 2 diabetes mellitus with hyperglycemia, with long-term current use of insulin POCT GLUCOSE, BLD (NON STRIP) Routine 07/01/2024 2:25 PM EDT Type 2 diabetes mellitus with hyperglycemia, with long-term current use of insulin LIPID PANEL Routine 08/08/2023 9:57 AM EDT Mixed hyperlipidemia Initial Medicare annual wellness visit COLOGUARD Routine 10/15/2022 12:30 PM EDT Colon cancer screening HEPATITIS C ANTIBODY Routine 07/17/2022 9:24 AM EDT Hyperlipidemia, unspecified hyperlipidemia type from Last 3 Months or Most Recently Relevant to Health Maintenance Results * POC Albumin/Creatinine Ratio Urine (08/13/2024 3:26 PM EDT) POC ALBUMIN, URINE 10 mg/L POC CREATININE, URINE 50 mg/dL POC Urine Albumin Creatinine Ratio <30 <30 Lot Number [id number] Expiration Date Urine 08/13/2024 3:26 PM EDT Nusrat Lamb APRN POINT OF CARE TEST ORDERABL ES Final Result * (ABNORMAL) POC Glycosylated Hemoglobin (Hb A1C) (08/13/2024 1:27 PM EDT) Hemoglobin A1C 9.0(A) 4.5 - 5.7 % [facility] Lot Number [id number] [facility] Expiration Date [facility] Blood 08/13/2024 1:27 PM EDT Nusrat Lamb ROTARY FILTER OPERATOR POINT OF CARE TEST ORDERABL ES Final Result [facility]
[address] [place] [address], * (ABNORMAL) POC Glucose, Blood (07/01/2024 2:25 PM EDT) Pathologist [facility] Glucose 186(A) 70 - 130 mg/dL Lot Number [id number] Expiration Date 12/12/2024 Blood 07/01/2024 2:25 PM EDT Sotero Dillon MD POINT OF CARE TEST ORDERA BLES Final Result * (ABNORMAL) Lipid Panel (08/08/2023 9:57 AM EDT) [facility] Total Cholesterol 131 100 - 199 mg/dL [facility] Triglycerides 203(H) 0 - 149 mg/dL [facility] HDL Cholesterol 29(L) >39 mg/dL [facility] VLDL Cholesterol Damon 34 5 - 40 mg/dL [facility] LDL Chol Calc (NIH) 68 0 - 99 mg/dL [facility] Blood Structure of left upper limb / Unknown 08/08/2023 9:57 AM EDT 08/08/2023 Comment:Blood Release to [facility] i Narrative [facility] (AMBULATORY) - 08/09/2023 9:07 AM EDT Performed at: 01 - [facility] [address] [place] [id number] Vehicle Dynamics Engineer: Yannick Almonte PhD, Phone: [phone] Nusrat Lamb APRN LAB BLOOD ORDERABLES Final Result [facility] ([facility]BULATORY) [address] [place] [address], [facility] [address] [place] [address], * Cologuard - Stool, Per Rectum (10/15/2022 12:30 PM EDT) [facility] Cologuard Negative Negative 10/24/2022 1:39 PM EDT [facility] (CLIA #:[id number]) Comment: NEGATIVE TEST RESULT. A negative Cologuard result indicates a low likelihood that a colorectal cancer (CRC) or advanced adenoma (adenomatous polyps with more advanced pre-malignant features) is present. The chance that a person with a negative Cologuard test has a colorectal cancer is less than 1 in 1500 (negative predictive value >99.9%) or has an advanced adenoma is less than 5.3% (negative predictive value 94.7%). These data are based on a prospective cross-sectional study of 10,000 individuals at average risk for colorectal cancer who were screened with both Cologuard and colonoscopy. (Jabari Galarza. et al, N Engl J Med 2014;370(14):9634-0680) The normal value (reference range) for this assay is negative. COLOGUARD RE-SCREENING RECOMMENDATION: Periodic colorectal cancer screening is an important part of preventive healthcare for asymptomatic individuals at average risk for colorectal cancer. Following a negative Cologuard result, the [place] [employer] Society and U.S. Multi-Society Task Force screening guidelines recommend a Cologuard re-screening interval of 3 years. References: [place] [employer] Guideline for Colorectal Cancer Screening: https://www.cancer.org/cancer/qcmfz-eoaujc-hdcjbp/xhgkhmgyz-vtzwqqszk-knfwflf/ac s-rec ommendations.html.; Cristo MEZA, Jenifer RESENDIZ, Karoline KelloggK, Colorectal Cancer Screening: Recommendations for Physicians and Patients from the U.S. Multi-Society Task Force on Colorectal Cancer Screening , Am J Gastroenterology 2017; 112:8095-5017. TEST DESCRIPTION: Composite algorithmic analysis of stool DNA-biomarkers with hemoglobin immunoassay. Quantitative values of individual biomarkers are not reportable and are not associated with individual biomarker result reference ranges. Cologuard is intended for colorectal cancer screening of adults of either sex, 45 years or older, who are at average-risk for colorectal cancer (CRC). Cologuard has been approved for use by the U.S. FDA. The performance of Cologuard was established in a cross sectional study of average-risk adults aged 50-84. Cologuard performance in patients ages 45 to 49 years was estimated by sub-group analysis of near-age groups. Colonoscopies performed for a positive result may find as the most clinically significant lesion: colorectal cancer [4.0%], advanced adenoma (including sessile serrated polyps greater than or equal to 1cm diameter) [20%] or non- advanced adenoma [31%]; or no colorectal neoplasia [45%]. These estimates are derived from a prospective cross-sectional screening study of 10,000 individuals at average risk for colorectal cancer who were screened with both Cologuard and colonoscopy. (Jabari Real et al, N Engl J Med 2014;370(14):3933-2923.) Cologuard may produce a false negative or false positive result (no colorectal cancer or precancerous polyp present at colonoscopy follow up). A negative Cologuard test result does not guarantee the absence of CRC or advanced adenoma (pre-cancer). The current Cologuard screening interval is every 3 years. ([place] [employer] Society and U.S. Multi-Society Task Force). Cologuard performance data in a 10,000 patient pivotal study using colonoscopy as the reference method can be accessed at the following location: www.ANPI/results. Additional description of the Cologuard test process, warnings and precautions can be found at www.Blood cell StorageogEqiancheng.comrd.com. Stool specimen (specimen) Specimen from rectum / Unknown 10/15/2022 12:30 PM EDT 10/17/2022 4:31 PM EDT Nusrat Lamb APRN BODY FLUIDS AND STOOLS TIMMY CAMPBELL Final Result [facility] (CLIA #:[id number]) [address] [place] [address], * Hepatitis C Antibody (07/17/2022 9:24 AM EDT) Hep C Virus Ab Non Reactive Non Reactive [facility] Comment: HCV antibody alone does not differentiate between previously resolved infection and active infection. Equivocal and Reactive HCV antibody results should be followed up with an HCV RNA test to support the diagnosis of active HCV infection. Blood Structure of left upper limb / Unknown 07/17/2022 9:24 AM EDT 07/17/2022 Comment:Blood Release to pat lorri Nicholson [facility] (AMBULATORY) - 07/18/2022 10:07 AM EDT Performed at: 01 - [facility] [address] [place], [place] [id number] Vehicle Dynamics Engineer: Yannick Almonte PhD, Phone: [phone] us Nusrat Lamb APRN LAB BLOOD ORDERABLES Final Result [facility] (AMBULATORY) [address] [place] [address], [facility] [address] [place] [address], from Last 3 Months or Most Recently Relevant to Health Maintenance Insurance MEDICARE ADVANTAGE PPO Care Teams Marine Operations Coordinator Relationship Specialty Start Date End Date Nusrat Lamb APRN [address] [place] [id number] PCP - General Family Medicine 07/04/22
--- OUTSIDE RECORDS SUMMARY | 2024-09-07 09:45 | XMS_ITS | Encounter Summary ---
Author Organization [facility] Address [address] [place] [address] Care Team Providers Care Program Director Group Work Name Role Phone Nusrat Lamb GUSSET RIPPER Primary Care Provider [phone] Reason for Visit * Reason Onset Date Comments Med Refill 10/12/2022 Encounter Details Date Type Department Care Team (Late st Contact Info) Description 10/12/[address] [facility] [address] [place] [phone] Nusrat Lamb, GUSSET RIPPER [address] [place] [address] Anxiety Social History Tobacco Use Types Packs/Day [...] encounter Miscellaneous Notes * Telephone Encounter - Isis Whitten RegSched Rep - 10/12/2022 11:54 AM EDT Caller: Anthony Jacob Relationship: Self Best call back number:[phone] Requested Prescriptions: Requested Prescriptions Pending Prescriptions Disp Refills LORazepam (Ativan) 1 MG tablet 60 tablet 0 Sig: Take 1 tablet by mouth Every 8 (Eight) Hours As Needed for Anxiety. Pharmacy where request should be sent: [facility] [address] [place] [address] [phone] [facility] [phone] Last office visit with prescribing clinician: 10/04/2022 Last telemedicine visit with prescribing clinician: Visit date not found Next office visit with prescribing clinician: 01/08/2023 Does the patient have less than a 3 day supply: [x] Yes [] No Would you like a call back once the refill request has been completed: [] Yes [x] No If the office needs to give you a call back, can they leave a voicemail: [] Yes [x] No Mely Sena Rep 10/12/22 11:55 EDT documented in this encounter Plan of Treatment Upcoming Encounters Date Type Department Care Team (Late st Contact Info) Description 11/02/2024 11:15 AM EDT Office Visit [facility] [address] [address] Shameka Redmond PA [address] [id number] 11/12/2024 1:30 PM EDT Office Visit [facility] [address] [place] [phone] Nusrat Lamb APRN [address] [place] [address] 02/25/2025 11:00 AM EST Office Visit [facility] [address] [address] Sotero Dillon MD [address] [address] documented as of this encounter Visit Diagnoses Diagnosis Anxiety Anxiety state, unspecified documented in this encounter Care Teams Program Director Group Work Relationship Specialty Start Date End Date Nusrat Lamb APRN [address] [place] [address] PCP - General Family Medicine 07/04/22 documented as of this encounter
--- OUTSIDE RECORDS SUMMARY | 2024-09-07 09:45 | XMS_ITS | Encounter Summary ---
Author Organization [facility] Address [address] [place] [address] Care Team Providers Care Steward Dishwasher Name Role Phone Nusrat Lamb GRAIN WAFER MACHINE OPERATOR Primary Care Provider [phone] Reason for Visit * Reason Comments Med Refill Encounter Details Date Type Department Care Team (Late st Contact Info) Description 07/14/2024 Refill [facility] [address] [place] [phone] uNsrat Lamb, GRAIN WAFER MACHINE OPERATOR [address] [place] [address] Primary insomnia Social History Tobacco [...] 11:15 AM EDT Office Visit [facility] [address] [phone] Shameka Redmond PA [address] [address] 11/12/2024 1:30 PM EDT Office Visit [facility] [address] [place] [phone] Nusrat Lamb APRN [address] [place] [address] 02/25/2025 11:00 AM EST Office Visit [facility] [address] [address] Sotero Dillon MD [address] [id number] documented as of this encounter Visit Diagnoses Diagnosis Primary insomnia Persistent disorder of initiating or maintaining sleep documented in this encounter Care Teams Steward Dishwasher Relationship Specialty Start Date End Date Nusrat Lamb APRN [address] [place] [address] PCP - General Family Medicine 07/04/22 documented as of this encounter
--- OUTSIDE RECORDS SUMMARY | 2024-09-07 09:45 | XMS_ITS | Encounter Summary ---
Author Organization [facility] Address [address] [place] [address] Care Team Providers Care Smeller Name Role Phone Nusrat Lamb APRN Primary Care Provider [phone] Reason for Visit * Reason Onset Date Comments Med Refill 08/19/2024 Encounter Details Date Type Department Care Team (Late st Contact Info) Description 08/19/2024 Refill [facility] [address] [place] [phone] Nusrat Lamb, FLOOR LAYER TILE [address] [place] [address] Type 2 diabetes mellitus with hyperglycemia, with long-term current use of insulin Social History Tobacco Use Types Packs/Day Years Used Date Smoking Tobacco: Former Cigarettes 1.4 49.9 0 02/19/1972 - 02/18/1998 Smokeless Tobacco: Never Alcohol Use Standard Drinks/Week Comments Not Currently 0 (1 standard drink = 0.6 oz pur e alcohol) [facility] Utilities Answer Date Recorded In the past 12 months has [employer], gas, oil, or water [employer] threatened to shut off services in your [...] often do you attend chur ch or temple services? Never 07/26/2024 Do you belong to any clubs o r organizations such as alevism groups, unions, fraternal or athletic groups, or [...] Brief Depression Severity Measure Score 0 10/04/2022 [facility] - Occupational Stress Questionnaire Answer Date [...] any time in the past 12 m [facility], were you homeless or living in a jail (including now)? No 07/26/2024 Housing Stability Answer [...] Visit [facility] [address] [phone] Shameka Redmond PA [address] [address] 11/12/2024 1:30 PM EDT Office Visit [facility] [address] [place] [address] [place] [phone] Nusrat Lamb, FLOOR LAYER TILE [address] [place] [address] 02/25/2025 11:00 AM EST Office Visit [facility] [address] [phone] Sotero Dillon MD [address] [id number] documented as of this encounter Visit Diagnoses Diagnosis Type 2 diabetes mellitus with hyperglycemia, with long-term current use of insulin documented in this encounter Care Teams Smeller Relationship Specialty Start Date End Date Nusrat Lamb, FLOOR LAYER TILE [address] [place] [address] PCP - General Family Medicine 07/04/22 documented as of this encounter
--- OUTSIDE RECORDS SUMMARY | 2024-09-07 09:46 | XMS_ITS | Encounter Summary ---
[facility] Address [address] [place] [address] Care Team Providers Care Die Tripper Name Role Phone Nusrat Lamb APRN Primary Care Provider [phone] [phone] Reason for Visit * Reason Onset Date Comments New Med Request 08/03/2024 Encounter Details Date Type Department Care Team (Late st Contact Info) Description 08/03/2024 Telephone [facility] PRIMARY CARE [address] [place] [phone] Nusrat Lamb APRN [address] [place] [address] New Med Request Social History Tobacco Use Types Packs/Day Years Used Date Smoking Tobacco: Former Cigarettes 1.4 49.9 0 02/19/1972 - 02/18/1998 Smokeless Tobacco: Never Alcohol Use Standard Drinks/Week Comments Not Currently 0 (1 standard drink = 0.6 oz pur e alcohol) [facility] Utilities Answer Date Recorded In the past 12 months has e [employer], gas, oil, or water [employer] threatened to shut off services in your [...] How often do you attend chur or christian services? Never 07/26/2024 Do you belong to any clubs o r organizations such as jainism groups, unions, fraternal or athletic groups, or [...] Brief Depression Severity Measure Score 0 10/04/2022 [facility] - Occupational Stress Questionnaire Answer Date [...] any time in the past 12 m [facility], were you homeless or living in a detention (including now)? No 07/26/2024 Housing Stability Answer [...] encounter Miscellaneous Notes * Telephone Encounter - Becca Hall RegSched Rep - 08/03/2024 12:08 PM EDT Caller: Anthony Jacob Relationship: Self Best call back number: [phone] What medication are you requesting: NEEDLES FOR LANTUS Have you had these symptoms before: [x] Yes [] No Have you been treated for these symptoms before: [x] Yes [] No If a prescription is needed, what is your preferred pharmacy and phone number: [facility] MAIL DELIVERY - [place], [place] - [address] - [phone] - [phone] FX Additional notes: documented in this encounter Plan of Treatment Upcoming Encounters Date Type Department Care Team (Late st Contact Info) Description 11/02/2024 11:15 AM EDT Office Visit [facility] ENDOCRINOLOGY [address] [place] [phone] Shameka Redmond PA 3084 [facility] [place] [address] [address] 11/12/2024 1:30 PM EDT Office Visit [facility] PRIMARY [facility]ARE [address] [place] [phone] Nusrat Lamb, SCHOOL TRAFFIC GUARD [address] [place] [address] 02/25/2025 11:00 AM EST Office Visit [facility] ENDOCRINOLOGY [address] [address] Sotero Dillon MD [address] [address] documented as of this encounter Visit Diagnoses Not on filedocumented in this encounter Care Teams Die Tripper Relationship Specialty Start Date End Date Nusrat Lamb, JOSHUA [address] [place] [address] PCP - General Family Medicine 07/04/22 documented as of this encounter
--- OUTSIDE RECORDS SUMMARY | 2024-09-07 09:46 | XMS_ITS | Encounter Summary ---
Author Organization [facility] Address [address] [place] [address] Care Team Providers Care Senior Oracle Adf Developer Name Role Phone Nusrat Lamb ACADEMIC DIRECTOR Primary Care Provider [phone] Reason for Visit * Reason Onset Date Comments CLARIFICATION ON OZEMPIC DOSAGE 08/03/2024 Encounter Details Date Type Department Care Team (Late st Contact Info) Description 08/03/2024 Telephone [facility] PRIMARY CARE [address] [place] [phone] Nusrat Lamb, ACADEMIC DIRECTOR 6 [place] [address] CLARIFICATION ON OZEMPIC DOSAGE Social History Tobacco Use Types Packs/Day Years Used Date Smoking Tobacco: Former Cigarettes 1.4 49.9 0 02/19/1972 - 02/18/1998 Smokeless Tobacco: Never Alcohol Use Standard Drinks/Week Comments Not Currently 0 (1 standard drink = 0.6 oz pur e alcohol) [facility] Utilities Answer Date Recorded In the past 12 months has e [employer], gas, oil, or water [employer] threatened to shut off services in your [...] often do you attend chur ch or islam services? Never 07/26/2024 Do you belong to any clubs o r organizations such as moravian groups, unions, fraternal or athletic groups, or [...] Brief Depression Severity Measure Score 0 10/04/2022 [facility] - Occupational Stress Questionnaire Answer Date [...] any time in the past 12 m [facility], were you homeless or living in [...] Miscellaneous Notes * Telephone Encounter - Ariana Sctot MA - 08/03/2024 12:48 PM EDT Called and left a message advising patient on 04/23/2024 nusrat sent in for the 1mg. HUB can relay * Telephone Encounter - Tayla Beaverseliu Cathryn - 08/03/2024 12:27 PM EDT PATIENT HAS CALLED REQUESTING A CALL BACK TO GET CLARIFICATION ON DOSAGE FOR HIS OZEMPIC. PATIENT STATES HE THOUGHT HE WAS TO DO 1 MG INJECTIONS BUT PHARMACY ONLY SENDING ENOUGH MEDICATION TO DO 0.5 MG. PATIENT IS REQUESTING A CALL BACK FOR CLARIFICATION AND OR TO HAVE NEW PRESCRIPTION SENT IN TO REFLECT 1 MG DOSE. CALL BACK NUMBER IS [phone] documented in this encounter Plan of Treatment Upcoming Encounters Date Type Department Care Team (Late st Contact Info) Description 11/02/2024 11:15 AM EDT Office Visit [facility] ENDOCRINOLOGY [address] [phone] Shameka Redmond PA [address] [address] 11/12/2024 1:30 PM EDT Office Visit [facility] PRIMARY CARE [address] [place] [phone] Nusrat Lamb APRN [address] [place] [address] 02/25/2025 11:00 AM EST Office Visit [facility] ENDOCRINOLOG[facility] [address] [phone] Sotero Dillon MD [address] [address] documented as of this encounter Visit Diagnoses Not on filedocumented in this encounter Care Teams Senior Oracle Adf Developer Relationship Specialty Start Date End Date Nusrat Lamb APRN [address] [place] [address] PCP - General Family Medicine 07/04/22 documented as of this encounter
--- OUTSIDE RECORDS SUMMARY | 2024-09-07 09:46 | XMS_ITS | Encounter Summary ---
[facility] Address [address] [place] [address] Care Team Providers Care Fumigator And Sterilizer Name Role Phone Nusrat Lamb DAY LIGHT RELIEF OPERATOR Primary Care Provider [phone] Reason for Visit * Reason Comments Med Refill Encounter Details Date Type Department Care Team (Late st Contact Info) Description 08/05/[address] [facility] PRIMARY CARE [address] [place] [phone] Nusrat Lamb, DAY LIGHT RELIEF OPERATOR [address] [place] [address] Benign prostatic hyperplasia with weak urinary stream Social History Tobacco Use Types Packs/Day Years Used Date Smoking Tobacco: Former Cigarettes 1.4 49.9 0 02/19/1972 - 02/18/1998 Smokeless Tobacco: Never Alcohol Use Standard Drinks/Week Comments Not Currently 0 (1 standard drink = 0.6 oz pur e alcohol) [facility] Utilities Answer Date Recorded In the past 12 months has [employer], gas, oil, or water [employer] threatened to shut off services in your [...] How often do you attend chur or oriental orthodox services? Never 07/26/2024 Do you belong to any clubs o r organizations such as yarsanism groups, unions, fraternal or athletic groups, or [...] Brief Depression Severity Measure Score 0 10/04/2022 [facility] - Occupational Stress [...] time in the past 12 m [facility], were you homeless or living in a halfway (including now)? No 07/26/2024 Housing Stability Answer [...] Description 11/02/2024 11:15 AM EDT Office Visit [facility] ENDOCR[facility]OLOG[facility] [address] [phone] Shameka Redmond PA [address] [address] 11/12/2024 1:30 PM EDT Office Visit [facility] PRIMARY CARE [address] [place] [phone] Nusrat Lamb APRN 6 [place] [address] 02/25/2025 11:00 AM EST Office Visit [facility] ENDOCRINOLOGY [address] [phone] Sotero Dillon MD [address] [address] documented as of this encounter Visit Diagnoses Diagnosis Benign prostatic hyperplasia with weak urinary stream documented in this encounter Care Teams Fumigator And Sterilizer Relationship Specialty Start Date End Date Nusrat Lamb APRN [address] [place] [address] PCP - General Family Medicine 07/04/22 documented as of this encounter
--- OUTSIDE RECORDS SUMMARY | 2024-09-07 09:46 | XMS_ITS | Encounter Summary ---
Author Organization [facility] Address [address] [place] [address] Care Team Providers Care Chain Mortiser Operator Name Role Phone Nusrat Lamb APRN Primary Care Provider [phone] Reason for Visit * Reason Onset Date Comments Med Refill 08/03/2024 Encounter Details Date Type Department Care Team (Late st Contact Info) Description 08/03/2024 Refill [facility] PRIMARY CARE [address] [place] [phone] Nusrat Lamb, JOSHUA [address] [place] [address] Primary insomnia Social History Tobacco Use Types Packs/Day Years Used Date Smoking Tobacco: Former Cigarettes 1.4 49.9 0 02/19/1972 - 02/18/1998 Smokeless Tobacco: Never Alcohol Use Standard Drinks/Week Comments Not Currently 0 (1 standard drink = 0.6 oz pur e alcohol) [facility] Utilities Answer Date Recorded In the past 12 months has e [facility], gas, oil, or water [employer] threatened to shut off services in your [...] How often do you attend chur or bahai services? Never 07/26/2024 Do you belong to any clubs o r organizations such as holiness groups, unions, fraternal or athletic groups, or [...] Brief Depression Severity Measure Score 0 10/04/2022 [facility] - Occupational Stress Questionnaire Answer Date [...] any time in the past 12 m [facility], were you homeless or living in a nursing home (including now)? No 07/26/2024 Housing Stability Answer [...] - Becca Hall RegSched Rep - 08/03/2024 12:06 PM EDT Caller: Anthony Jacob Relationship: Self Best call back number: [phone] Requested Prescriptions: Requested Prescriptions Pending Prescriptions Disp Refills LORazepam (ATIVAN) 2 MG tablet 60 tablet 0 Sig: Take 1 tablet by mouth Every 6 (Six) Hours As Needed for Anxiety. Insulin Glargine (Lantus SoloStar) 100 UNIT/ML injection pen 45 mL 3 Sig: INJECT 60 TO 80 UNITS UNDER THE SKIN ONE TIME DAILY DIRECTED Pharmacy where request should be sent: [facility] MAIL DELIVERY - [facility] [address] - [phone] - [phone] FX Last office visit with prescribing clinician: 04/23/2024 Last telemedicine visit with prescribing clinician: Visit date not found Next office visit with prescribing clinician: 08/13/2024 Additional details provided by patient: Does the patient have less than a 3 day supply: [x] Yes [] No Would you like a call back once the refill request has been completed: [] Yes [x] No If the office needs to give you a call back, can they leave a voicemail: [] Yes [x] No Mely Vasques 08/03/24 12:08 EDT documented in this encounter Plan of Treatment Upcoming Encounters Date Type Department Care Team (Late st Contact Info) Description 11/02/2024 11:15 AM EDT Office Visit [facility] ENDOCRINOLOGY [address] [phone] Shameka Redmond PA [facility] [address] [address] 11/12/2024 1:30 PM EDT Office Visit [facility] PRIMARY CARE [address] [place] [address] [place] [address] Nusrat Lamb APRN [address] [place] [address] 02/25/2025 11:00 AM EST Office Visit [facility] ENDOCR[facility] [address] [facility] [address] [place] [address] Sotero Dillon MD [facility] [address] [address] documented as of this encounter Visit Diagnoses Diagnosis Primary insomnia Persistent disorder of initiating or maintaining sleep documented in this encounter Care Teams Chain Mortiser Operator Relationship Specialty Start Date End Date Nusrat Lamb APRN 6 [place] [address] PCP - General Family Medicine 07/04/22 documented as of this encounter
[2024-09-07 10:09] LABS: Hematocrit 45.8 % (42.0-52.0); Hemoglobin 15.6 g/dL (14.1-18.0); Immature Granulocytes % 0.5 %; Mean Corpuscular HGB Conc 34.1 g/dL (31.8-35.4); Mean Corpuscular Hemoglobin 31.0 pg (27.0-31.2); Mean Corpuscular Volume 90.9 fl (80-94); Nucleated Red Blood Cells % 0 %; Platelet Count 202 K/mm3 (142-424); Red Blood Count 5.04 M/mm3 (4.60-6.20); Red Cell Distribution Width-SD 43.3 fL; White Blood Count 10.1 K/mm3 (4.8-10.8)
[2024-09-07 12:14] LABS: Blood Urea Nitrogen 22 mg/dl (9-20); Creatinine,Serum 1.50 mg/dl (0.66-1.25); Estimated Glomerular Filt Rate 46 ml/min (>60); GFR (African American) 56 ML/MIN (>60)
== END 2024-09-07 23:59 | disposition home or self-care (01) ==
LOC: LAB 09:43
PROVIDERS: PCP Nurse Practitioner; Visit Provider Urology
DX: N40.0 Benign prostatic hyperplasia without lower urinary tract symptoms (principal); N52.9 Male erectile dysfunction, unspecified
CPT/HCPCS: 36415; 82565; 84520; 85025

== ENCOUNTER 2024-12-09 08:28 | Observation (INO) | payer MEDICARE, SELFPAY ==
--- OUTSIDE RECORDS SUMMARY | 2024-11-02 11:15 | XMS_ITS | Encounter Summary ---
Author Organization [facility] Address [address] [place] [address] Care Team Providers Care Research Leader Name Role Phone Nusrat Lamb APRN Primary Care Provider [phone] Reason for Visit * Reason Comments Diabetes Encounter Details Date Type Department Care Team (Late st Contact Info) Description 11/02/2024 11:15 AM EDT Office Visit [facility] ENDOCRINOLOGY [address] [phone] Shameka Redmond PA 3084 [facility] [address] [place] [address] Type 2 diabetes mellitus with hyperglycemia, with long-term current use of insulin (Primary Dx) Social History Tobacco Use Types Packs/Day Years Used Date Smoking Tobacco: Former Cigarettes 1.4 50.2 0 02/19/1972 - 02/18/1998 Smokeless Tobacco: Never Tobacco Cessation:Counseling Given: Not Answered Alcohol Use Standard Drinks/Week Comments Not Currently 0 (1 standard drink = 0.6 oz pur e alcohol) [facility] Utilities Answer Date Recorded In the past 12 months has [employer] electric, gas, oil, or water company threatened [...] No 07/26/2024 Social Connection and Isolation Panel Answer Date Recorded In a typical week, how many times do you talk on the phone with family, friends, or neighbors? Three times a week 07/26/2024 How often do you get togethe r with friends or relatives? Never 07/26/2024 How often do you attend chur or protestant services? Never 07/26/2024 Do you belong to any clubs o r organizations such as baptism groups, unions, fraternal or athletic groups, or [...] Brief Depression Severity Measure Score 0 10/04/2022 [facility] - Occupational Stress Questionnaire Answer Date Recorded [...] time in the past 12 m [facility], were you homeless or living in a mcc (including now)? No 07/26/2024 Housing Stability Answer [...] Sign Reading Time Taken Comments Blood Pressure 120/77 11/02/2024 10:37 AM EDT Pulse 76 11/02/2024 10:37 AM EDT Temperature - - Respiratory Rate - - Oxygen Saturation 96% 11/02/2024 10:37 AM EDT Inhaled Oxygen Concentration - - Weight 124 kg (274 lb) 11/02/2024 10:37 AM EDT Height 177.8 cm (5' 10 ) 11/02/2024 10:37 AM EDT Body Mass Index 39.31 11/02/2024 10:37 AM EDT documented in this encounter Progress Notes * Shameka Redmond PA - 11/02/2024 12:41 PM EDTAssociated Problem(s): Type 2 diabetes mellitus with hyperglycemia, with long-term current use of insulin Diabetes is improving with treatment. Medication changes per orders. Recommended an ADA diet. Regular aerobic exercise. Reminded to get yearly retinal exam. A1c has improved slightly since last visit. Discussed options for treatment to further improve A1c.Patient is hesitant to try different medications so we will maximize his current meds. Increase Jardiance to 25 mg daily and Ozempic to 2 mg daily. Discussed switching to a more concentrated basal insulin vs switching to Mounjaro if still not at goal. Suggested sending CGM order through DME to see if it is covered, patient declined at this time. Eye exam up-to-date, foot exam up-to-date, fasting labs to be done at upcoming PCP visit, urine microalbumin creatinine ratio up-to-date. Diabetes will be reassessed in 3 months * Shameka Redmond PA - 11/02/2024 11:15 AM EDT Images from the original note were not included. Office Note Date: 11/02/2024 Patient Name: Anthony Jacob : 1950 Chief Complaint Patient presents with Diabetes History of Present Illness: Anthony Jacob is a 74 y.o. male who presents for Diabetes type 2. Diagnosed: 2009 Current RX: glipizide 10 mg BID, Ozempic 1 mg and Lantus 80 units, jardiance 10 mg Bg checks are done: every morning- averaging 170-214 Hypoglycemia :none Started Jardiance after last visit. He has tolerated it without any problem. He does have some urinary urgency, had that before starting the medication. Saw Urologist and just started taking oxybutynin. Was already on Tamsulosin. He has discussed CGM before and has not been interested due to cost and not wanting to use it. Tolerates Ozempic, glimepiride and Lantus without any problem. Taking as directed. No missed doses. Last A1c: Hemoglobin A1C Date Value Ref Range Status 11/02/2024 9.5 (A) 4.5 - 5.7 % Final Changes in health since last visit: none. DM Health Maintenance: Ophtho: 01/2024 Monofilament / Foot exam: 07/01/24 Lipids/Statin: taking a statin with last FLP showing LDL to be done with PCP on 11/12/24 MAEGAN: 08/13/24 TSH: due Aspirin: taking LAKISHA/ARB: no Diabetic Complications: Eyes: No Kidneys: Yes - CKD Feet: Yes - neuropathy Heart: Yes - Subjective Review of Systems: Review of Systems Constitutional: Negative for activity change, appetite change and fatigue. Respiratory: Negative for chest tightness and shortness of breath. Gastrointestinal: Negative for abdominal pain. Musculoskeletal: Negative for myalgias. Neurological: Negative for numbness. Psychiatric/Behavioral: The patient is not nervous/anxious. The following portions of the patient's history were reviewed and updated as appropriate: allergies, current medications, past family history, past medical history, past social history, past surgicalhistory, and problem list. Objective Visit Vitals BP 120/77 Pulse 76 Ht 177.8 cm (70 ) Wt 124 kg (274 lb) SpO2 96% BMI 39.31 kg/m?? Physical Exam: Physical Exam Constitutional: Appearance: He is well-developed. HENT: Head: Normocephalic and atraumatic. Right Ear: External ear normal. Left Ear: External ear normal. Eyes: Conjunctiva/sclera: Conjunctivae normal. Pulmonary: Effort: Pulmonary effort is normal. Musculoskeletal: General: Normal range of motion. Cervical back: Normal range of motion. Skin: General: Skin is warm and dry. Psychiatric: Behavior: Behavior normal. Assessment / Plan Assessment & Plan: Diagnoses and all orders for this visit: 1. Type 2 diabetes mellitus with hyperglycemia, with long-term current use of insulin (Primary) Assessment & Plan: Diabetes is improving with treatment. Medication changes per orders. Recommended an ADA diet. Regular aerobic exercise. Reminded to get yearly retinal exam. A1c has improved slightly since last visit. Discussed options for treatment to further improve A1c.Patient is hesitant to try different medications so we will maximize his current meds. Increase Jardiance to 25 mg daily and Ozempic to 2 mg daily. Discussed switching to a more concentrated basal insulin vs switching to Mounjaro if still not at goal. Suggested sending CGM order through DME to see if it is covered, patient declined at this time. Eye exam up-to-date, foot exam up-to-date, fasting labs to be done at upcoming PCP visit, urine microalbumin creatinine ratio up-to-date. Diabetes will be reassessed in 3 months Orders: - POC Glucose, Blood - POC Glycosylated Hemoglobin (Hb A1C) - empagliflozin (Jardiance) 25 MG tablet tablet; Take 1 tablet by mouth Daily. Dispense: 90 tablet;Refill: 3 - Semaglutide, 2 MG/DOSE, (Ozempic, 2 MG/DOSE,) 8 MG/3ML solution pen-injector; Inject 2 mg under the skin into the appropriate area as directed 1 (One) Time Per Week. Dispense: 9 mL; Refill: 3 Return for Next scheduled follow up with fasting labs. Portions of this note were completed with voice recognition program. Electronically signed by Shameka Redmond PA-C [facility] [place] 11/02/2024 documented in this encounter Plan of Treatment Upcoming Encounters Date Type Department Care Team (Late st Contact Info) Description 02/25/2025 11:00 AM EST Office Visit [facility] ENDOCRINOLOGY [address] [place] [address] Sotero Dillon MD [facility] [place] [address] [place] [address] [id number] 07/06/2025 11:45 AM EDT Office Visit [facility] ENDOCRINOLOGY [address] [place] [address] Sotero Dillon MD [facility] [address] documented as of this encounter Procedures Procedure Name Priority Date/Time Associated Diagnosis Comments POCT GLYCOSYLATED HEMOGLOBIN (HGB A1C) Routine 11/02/2024 10:52 AM EDT Type 2 diabetes mellitus with hyperglycemia, with long-term current use of insulin POCT GLUCOSE, BLD (NON STRIP) Routine 11/02/2024 10:48 AM EDT Type 2 diabetes mellitus with hyperglycemia, with long-term current use of insulin documented in this encounter Results * (ABNORMAL) POC Glycosylated Hemoglobin (Hb A1C) (11/02/2024 10:52 AM EDT) Hemoglobin A1C 9.5(A) 4.5 - 5.7 % [facility] Lot Number [id number] [facility] Expiration Date 05/21/26 [facility] Blood 11/02/2024 10:5 2 AM EDT us Shameka TINEO POINT OF CARE TEST ORDERABLES F inal Result [facility]
[address] [place] [address], * (ABNORMAL) POC Glucose, Blood (11/02/2024 10:48 AM EDT) Glucose 185(A) 70 - 130 mg/dL Lot Number [id number] Expiration Date 04/21/25 Blood 11/02/2024 10:4 8 AM EDT us Shameka TINEO POINT OF CARE TEST ORDERABLES F inal Result documented in this encounter Visit Diagnoses Diagnosis Type 2 diabetes mellitus with hyperglycemia, with long-term current use of insulin- Primary documented in this encounter Care Teams Research Leader Relationship Specialty Start Date End Date Nusrat Lamb APRN [address] [place] [id number] PCP - General Family Medicine 07/04/22 documented as of this encounter
--- OUTSIDE RECORDS SUMMARY | 2024-11-12 13:30 | XMS_ITS | Encounter Summary ---
Author Organization [facility] Address [address] [place] [address] Care Team Providers Care Project Management Professor Name Role Phone Nusrat Lamb DRY BOSS Primary Care Provider [phone] Reason for Visit * Reason Comments 3 month follow up DM Generalized Body Aches Headache Cough Nasal Congestion Sore Throat Encounter Details Date Type Department Care Team (Late st Contact Info) Description 11/12/2024 1:30 PM EDT Office Visit [facility] [address] [place] [phone] Nusrat Lamb, DRY BOSS [address] [place] [address] Type 2 diabetes mellitus with hyperglycemia, with long-term current use of insulin (Primary Dx); Cough, unspecified type; Stage 3a chronic kidney disease; Spinal stenosis, lumbar region, with neurogenic claudication; Primary hypertension; Acute non-recurrent pansinusitis Social History Tobacco Use Types Packs/Day Years Used Date Smoking Tobacco: Former Cigarettes 1.4 50.2 0 02/19/1972 - 02/18/1998 Smokeless Tobacco: Never Alcohol Use Standard Drinks/Week Comments Not Currently 0 (1 standard drink = 0.6 oz pur e alcohol) [facility] Utilities Answer Date Recorded In the past [...] often do you attend chur ch or worship services? Never 07/26/2024 Do you belong to [...] Brief Depression Severity Measure Score 0 10/04/2022 [facility] - Occupational Stress [...] any time in the past 12 m [facility], were you homeless or living in a care home (including now)? No 07/26/2024 Housing Stability [...] Sign Reading Time Taken Comments Blood Pressure 134/82 11/12/2024 1:19 PM EDT Pulse 68 11/12/2024 1:19 PM EDT Temperature 36.7 C (98 F) 11/12/2024 1:19 PM EDT Respiratory Rate 16 11/12/2024 1:19 PM EDT Oxygen Saturation 96% 11/12/2024 1:19 PM EDT Inhaled Oxygen Concentration - - Weight 125 kg (275 lb) 11/12/2024 1:19 PM EDT Height 177.8 cm (5' 10 ) 11/12/2024 1:19 PM EDT Body Mass Index 39.46 11/12/2024 1:19 PM EDT documented in this encounter Progress Notes * ZainabMerissa khandarnell Camacho, DRY BOSS - 11/12/2024 1:30 PM EDT Images from the original note were not included. Office Note Name: Anthony Jacob : 1950 Chief Complaint 3 month follow up DM, Generalized Body Aches, Headache, Cough, Nasal Congestion, and Sore Throat Subjective History of Present Illness The patient is a male who presents for evaluation of sinusitis, diabetes mellitus, foreskin pain, and chronic kidney disease. He has been experiencing general malaise, including sinus issues, headaches, and muscle aches for the past few weeks. He reports no fever but mentions a slight cough and significant sinus pressure. He also describes a sensation of fullness in his ears. He has not taken any medication for these symptoms. He occasionally uses Flonase nasal spray but finds it excessively dries his nose, leading to no sebleeds. He is currently under the care of an knot borer and had a consultation on 11/02/2024. During this visit, his Ozempic dosage was increased to 2 mg and Jardiance to 25 mg. His A1c level was recorded as 9.5. He does not regularly consult with a hydrometeorology teacher but acknowledges the need for such a consultation. [facility] has [facility]. He has an upcoming appointment with a engineer systems in 12/2024 for addressing needed PAP supplies. He recently visited a urologist who found his prostate to be normal and confirmed that he was not retaining urine in his bladder. He had a sore that has since improved, but he continues to experiencepain with his foreskin. The urologist did not express any concerns about this and advised him to return if the issue persists. He was not prescribed any creams or other treatments. He has tried nystatin and hydrocortisone, but neither seemed to alleviate the problem. He is currently taking oxybutynin for urinary urgency and tamsulosin for an enlarged prostate. He reports no gastrointestinal symptoms such as diarrhea or vomiting. His back condition remains stable, with no changes in pain levels. PAST MEDICAL HISTORY: - Diabetes mellitus - Chronic kidney disease stage III - Enlarged prostate FAMILY HISTORY The patient's paternal grandmother and aunt had Alzheimer's disease. MEDICATIONS CURRENT MEDS: Ozempic 2 mg Jardiance 25 mg Flonase Nasal Sometimes Oxybutynin Tamsulosin Objective Past Medical History: Diagnosis Date Alcoholism 1992 in remission Allergic cerumenex rash Anxiety Arthritis Asthma 2015 sleep apnea/APAP Benign prostatic hyperplasia 2021 urgency Cervical disc disorder 1985 Cholelithiasis removed 1975 CKD (chronic kidney disease) 04/12/2022 Coronary artery disease involving paimiut coronary artery of paimiut heart without angina pectoris 12/19/2021 Depression Diabetes mellitus Erectile dysfunction 2015 BP meds? GERD (gastroesophageal reflux disease) Heart murmur 2004 R. carotid bruit 2023 HL (hearing loss) hearing aids Hyperlipidemia Hypertension Hypoglycemia 2010 insulin reaction Low back pain casual/ occasional Multiple closed fractures of ribs of left side 10/26/2021 Obesity have gastric band 2007 Peripheral neuropathy 2019 Substance abuse 1992 alcoholism Testosterone deficiency 2018 Thoracic disc disorder 1986 Troponin level elevated 12/19/2021 Added automatically from request for surgery [id number] Type 2 diabetes mellitus 2000 Visual impairment glasses Past Surgical History: Procedure Laterality Date BARIATRIC SURGERY band 2007 CARDIAC CATHETERIZATION 2021 CHOLECYSTECTOMY COLONOSCOPY 2019 EPIDURAL BLOCK 2021 by pain doctor GASTRIC BANDING 2007 GASTRIC RESTRICTION SURGERY 2014 JOINT REPLACEMENT 2014 right hip KNEE ARTHROSCOPY Bilateral REPLACEMENT TOTAL HIP ONCOLOGIC Right TONSILLECTOMY Family History Problem Relation Age of Onset Arthritis Mother Hypertension Mother COPD Mother Anxiety disorder Mother Hearing loss Mother Obesity Mother Early Mother age 59 Arthritis Father Hypertension Father Hyperlipidemia Father Alcohol abuse Brother Drug abuse Brother Early Brother 50 yo Hyperlipidemia Sister Hyperlipidemia Sister Diabetes Sister Obesity Sister Vital Signs BP 134/82 (BP Location: Left arm, Patient Position: Sitting, Cuff Size: Adult) Pulse 68 Temp 98??F (36.7 ??C) (Temporal) Resp 16 Ht 177.8 cm (70 ) Wt 125 kg (275 lb) SpO2 96% BMI 39.46kg/m?? Estimated body mass index is 39.46 kg/m?? as calculated from the following: Height as of this encounter: 177.8 cm (70 ). Weight as of this encounter: 125 kg (275 lb). Facility age limit for growth %yenni is 20 years. Physical Exam Vitals reviewed. Constitutional: Appearance: Normal appearance. HENT: Right Ear: Ear canal and external ear normal. Left Ear: Ear canal and external ear normal. Nose: Congestion present. Comments: Bilateral frontal and maxillary sinus tenderness on palpation Mouth/Throat: Pharynx: Oropharynx is clear. Posterior oropharyngeal erythema present. Eyes: Conjunctiva/sclera: Conjunctivae normal. Cardiovascular: Rate and Rhythm: Normal rate and regular rhythm. Pulses: Normal pulses. Heart sounds: Normal heart sounds. Pulmonary: Effort: Pulmonary effort is normal. Breath sounds: Normal breath sounds. Musculoskeletal: Cervical back: Neck supple. Skin: General: Skin is warm and dry. Neurological: Mental Status: He is alert and oriented to person, place, and time. Psychiatric: Mood and Affect: Mood normal. Behavior: Behavior normal. POCT Results (if applicable): Results for orders placed or performed in visit on 11/12/24 POC Glycosylated Hemoglobin (Hb A1C) Collection Time: 11/12/24 1:31 PM Specimen: Blood Result Value Ref Range Hemoglobin A1C 9.5 (A) 4.5 - 5.7 % Lot Number [id number] Expiration Date Covid-19 + Flu A&B AG, Veritor Collection Time: 11/12/24 1:45 PM Specimen: Swab Result Value Ref Range SARS Antigen Not Detected Not Detected, Presumptive Negative Influenza A Antigen ANURAG Not Detected Not Detected Influenza B Antigen ANURAG Not Detected Not Detected Internal Control Passed Passed Lot Number [id number] Expiration Date Assessment and Plan Diagnoses and all orders for this visit: 1. Type 2 diabetes mellitus with hyperglycemia, with long-term current use of insulin (Primary) - POC Glycosylated Hemoglobin (Hb A1C) 2. Cough, unspecified type - Covid-19 + Flu A&B AG, Veritor 3. Stage 3a chronic kidney disease 4. Spinal stenosis, lumbar region, with neurogenic claudication 5. Primary hypertension 6. Acute non-recurrent pansinusitis - amoxicillin-clavulanate (AUGMENTIN) 875-125 MG per tablet; Take 1 tablet by mouth 2 (Two) Times aDay. Dispense: 14 tablet; Refill: 0 Other orders - Cancel: Fluzone High-Dose 65+yrs Assessment & Plan 1. Sinusitis. Symptoms suggest the development of sinusitis over the past few weeks. [facility] [place]. He is advised to complete the course of antibiotics. The influenza vaccine will be deferred until his condition improves. 2. Diabetes Mellitus. His A1c was noted to be 9.5. He is currently on Ozempic 2 mg and Jardiance 25 mg, which were recently increased by his knot borer. He is advised to continue with the current medication regimen and maintain a balanced diet to help control blood sugar levels. 3. Chronic Kidney Disease Stage 3. His creatinine levels have remained stable at approximately 1.5 to 1.6, with a GFR of about 47%. Heis advised to avoid excessive use of NSAIDs, ibuprofen, Motrin, Aleve, and Advil to preserve kidneyfunction. Patient is established patient with [facility], he has been giventhe phone number to call make an appointment for follow-up 4. Foreskin Pain. He reports persistent pain with his foreskin despite previous use of nystatin and hydrocortisone creams. An oral course of fluconazole will be considered if symptoms persist. 5. Spinal stenosis He has been evaluated by neurosurgery and pain management for his spinal stenosis. Neurosurgery wanted to avoid surgical intervention due to his weight and uncontrolled A1c, per their report based off of his MRI he does have some advanced level degenerative changes in the L3-4 facets. He was subsequently referred to physical therapy which has helped his pain and mobility issues significantly. Follow Up Return in about 3 months (around 02/11/2025) for Next scheduled follow up. Patient or patient personal banking representative verbalized consent for the use of Ambient Listening during the visit with Nusrat Lamb APRN for chart documentation. 11/12/2024 17:20 EDT Nusrat Lamb APRN documented in this encounter Plan of Treatment Upcoming Encounters Date Type Department Care Team (Late st Contact Info) Description 02/25/2025 11:00 AM EST Office Visit [facility] [address] [phone] Sotero Dillon MD [address] [phone] 07/06/2025 11:45 AM EDT Office Visit [facility] [address] [phone] Sotero Dillon MD [address] [address] documented as of this encounter Procedures Procedure Name Priority Date/Time Associated Diagnosis Comments COVID-19 + FLU A&B AG, VERITOR Routine 11/12/2024 1:45 PM EDT Cough, unspecified type POCT GLYCOSYLATED HEMOGLOBIN (HGB A1C) Routine 11/12/2024 1:31 PM EDT Type 2 diabetes mellitus with hyperglycemia, with long-term current use of insulin documented in this encounter Results * Covid-19 + Flu A&B AG, Veritor (11/12/2024 1:45 PM EDT) Pathologist [facility] SARS Antigen Not Detected Not Detected, Presumptive Negative Influenza A Antigen ANURAG Not Detected Not Detected Influenza B Antigen ANURAG Not Detected Not Detected Internal Control Passed Passed Lot Number [id number] Expiration Date Swab 11/12/2024 1:45 PM EDT Nusrat Lamb DRY BOSS POINT OF CARE TEST ORDERABL ES Final Result * (ABNORMAL) POC Glycosylated Hemoglobin (Hb A1C) (11/12/2024 1:31 PM EDT) Pathologist [facility] Hemoglobin A1C 9.5(A) 4.5 - 5.7 % [facility] Lot Number [id number] [facility] Expiration Date [facility] Blood 11/12/2024 1:31 PM EDT us Nusrat Lamb DRY BOSS POINT OF CARE TEST ORDERABL ES Final Result [facility]
[address] [place] [id number], documented in this encounter Visit Diagnoses Diagnosis Type 2 diabetes mellitus with hyperglycemia, with long-term current use of insulin- Primary Cough, unspecified type Stage 3a chronic kidney disease Spinal stenosis, lumbar region, with neurogenic claudication Primary hypertension Unspecified essential hypertension Acute non-recurrent pansinusitis documented in this encounter Additional Health Concerns Infection Onset Date Last Indicated Resolved Time COVID (rule out) 11/12/2024 11/12/2024 11/12/2024 1:45 PM EDT documented as of this encounter Care Teams Project Management Professor Relationship Specialty Start Date End Date Nusrat Lamb, DRY BOSS [address] [place], [place] [phone] PCP - General Family Medicine 07/04/22 documented as of this encounter
[2024-12-09] VITALS (12 sets, daily range): BP systolic 82–133; BP diastolic 53–77; PULSE 73–88; RESP 9–20; TEMP 36.6–37; O2SAT 91–95; BMI 43.0; BMI 40.0
--- OUTSIDE RECORDS SUMMARY | 2024-12-09 08:32 | XMS_ITS | Encounter Summary ---
[facility] Organization [facility] Address [address] [place] [address] Care Team Providers Care Sales Manager Prearranged Funerals Name Role Phone Nusrat Lamb CHILDHOOD TEACHER Primary Care Provider [phone] Reason for Visit * Reason Comments Med Refill Encounter Details Date Type Department Care Team (Late st Contact Info) Description 11/26/2024 Refill [facility] [address] [place] [phone] Nusrat Lamb, CHILDHOOD TEACHER [address] [place] [address] Social History Tobacco Use Types Packs/Day Years Used Date Smoking Tobacco: Former Cigarettes 1.4 50.2 0 02/19/1972 - 02/18/1998 Smokeless Tobacco: Never Alcohol Use Standard Drinks/Week Comments Not Currently 0 (1 standard drink = 0.6 oz pur e alcohol) [facility] Utilities Answer Date Recorded In the past 12 months has [employer], gas, oil, or water [employer] threatened to shut off services in your [...] often do you attend chur ch or bahai services? Never 07/26/2024 Do you belong to any clubs o r organizations such as yarsani groups, unions, fraternal or athletic groups, or [...] 0 10/04/2022 [facility] - Occupational Stress Questionnaire [...] time in the past 12 m [facility], were you homeless or living in a usp (including now)? No 07/26/2024 Housing Stability Answer [...] Telephone Encounter - Ariana Scott MA - 11/26/2024 11:27 AM EDT Rx sent documented in this encounter Plan of Treatment Upcoming Encounters Date Type Department Care Team (Late st Contact Info) Description 02/25/2025 11:00 AM EST Office Visit [facility] [address] [phone] Sotero Dillon MD [facility] [phone] 07/06/2025 11:45 AM EDT Office Visit [facility] [address] [phone] Sotero Dillon MD [address] [place] [phone] documented as of this encounter Visit Diagnoses Not on filedocumented in this encounter Care Teams Sales Manager Prearranged Funerals Relationship Specialty Start Date End Date Nusrat Lamb APRN [address] [place] [address] PCP - General Family Medicine 07/04/22 documented as of this encounter
--- OUTSIDE RECORDS SUMMARY | 2024-12-09 08:32 | XMS_ITS | Encounter Summary ---
[facility] Address [address] [place] [address] Care Team Providers Care Sfdc Architect Name Role Phone Nusrat Lamb IN STORE MARKETING REPRESENTATIVE Primary Care Provider [phone] Reason for Visit * Reason Comments Med Refill Encounter Details Date Type Department Care Team (Late st Contact Info) Description 11/20/2024 Refill [facility] [address] [place] [phone] Nusrat Lamb, IN STORE MARKETING REPRESENTATIVE [address] [place] [address] Social History Tobacco Use Types Packs/Day Years Used Date Smoking Tobacco: Former Cigarettes 1.4 50.2 0 02/19/1972 - 02/18/1998 Smokeless Tobacco: Never Alcohol Use Standard Drinks/Week Comments Not Currently 0 (1 standard drink = 0.6 oz pur e alcohol) [facility] Utilities Answer Date Recorded In the past 12 months has [email or web address], gas, oil, or water [employer] threatened to shut off services in your [...] often do you attend chur ch or cheondoism services? Never 07/26/2024 Do you belong to any clubs o r organizations such as hinduism groups, unions, fraternal or athletic groups, or [...] 0 10/04/2022 [facility] - Occupational Stress Questionnaire [...] were you homeless or living in a residential (including now)? No 07/26/2024 Housing Stability Answer [...] Telephone Encounter - Ariana Scott MA - 11/20/2024 11:20 AM EDT Rx sent documented in this encounter Plan of Treatment Upcoming Encounters Date Type Department Care Team (Late st Contact Info) Description 02/25/2025 11:00 AM EST Office Visit [facility] [address] [phone] Sotero Dillon MD [facility] [phone] 07/06/2025 11:45 AM EDT Office Visit [facility] [address] [phone] Sotero Dillon MD [address] [place] [phone] documented as of this encounter Visit Diagnoses Not on filedocumented in this encounter Care Teams Sfdc Architect Relationship Specialty Start Date End Date Nusrat Lamb APRN [address] [place] [address] PCP - General Family Medicine 07/04/22 documented as of this encounter
--- OUTSIDE RECORDS SUMMARY | 2024-12-09 08:32 | XMS_ITS | Encounter Summary ---
Author Organization [facility] Address [address] [place] [address] Care Team Providers Care [place] Superintendent Of Schools Name Role Phone Nusrat Lamb FRUIT OR NUT FARM WORKER Primary Care Provider [phone] Reason for Visit * Reason Onset Date Comments Med Refill 10/12/2022 Encounter Details Date Type Department Care Team (Late st Contact Info) Description 10/12/[address] [facility] [address] [place] [phone] Nusrat Lamb, FRUIT OR NUT FARM WORKER [address] [place] [address] Anxiety Social History Tobacco Use [...] - 10/12/2022 11:54 AM EDT Caller: Anthony aJcob Relationship: Self Best call back number:[phone] Requested Prescriptions: Requested Prescriptions Pending Prescriptions Disp Refills LORazepam (Ativan) 1 MG tablet 60 tablet 0 Sig: Take 1 tablet by mouth Every 8 (Eight) Hours As Needed for Anxiety. Pharmacy where request should be sent: [id number] - [place], [place] - [address] [phone] [facility] [phone] FX Last office visit with prescribing clinician: 10/04/2022 [...] Description 02/25/2025 11:00 AM EST Office Visit [facility] [address] [phone] Sotero Dillon MD [address] [place] [phone] 07/06/2025 11:45 AM EDT Office Visit [facility] [address] [phone] Sotero Dillon MD [facility] [phone] documented as of this encounter Visit Diagnoses Diagnosis Anxiety Anxiety state, unspecified documented in this encounter Additional Health Concerns Infection Onset Date Last Indicated Resolved Time COVID (rule out) 11/12/2024 11/12/2024 11/12/2024 1:45 PM EDT documented as of this encounter Care Teams County Superintendent Of Schools Relationship Specialty Start Date End Date Nusrat Lamb APRN [address] [place] [address] PCP - General Family Medicine 07/04/22 documented as of this encounter
--- OUTSIDE RECORDS SUMMARY | 2024-12-09 08:32 | XMS_ITS | Encounter Summary ---
Author Organization [facility] Address [address] [place] [address] Care Team Providers Care Clinical Documentation Clerk Name Role Phone Nusrat Lamb APRN Primary Care Provider [phone] Encounter Details Date Type Department Care Team (Latest Contact Info) Description 11/12/2024 Travel Social History Tobacco Use Types Packs/Day Years Used Date Smoking Tobacco: Former Cigarettes 1.4 50.2 0 02/19/1972 - 02/18/1998 Smokeless Tobacco: Never Alcohol Use Standard Drinks/Week Comments Not Currently 0 (1 standard drink = 0.6 oz pur e alcohol) [facility] Utilities Answer Date Recorded In the past [...] Brief Depression Severity Measure Score 0 10/04/2022 [facility] - Occupational Stress Questionnaire Answer Date Recorded [...] any time in the [facility] were you [facility] or living in a penitentiary (including now)? No 07/26/2024 Housing Stability Answer [...] Description 02/25/2025 11:00 AM EST Office Visit [facility] [address] [phone] Sotero Dillon MD [address] [place] [phone] 07/06/2025 11:45 AM EDT Office Visit [facility] [address] [place] [address] [phone] Sotero Dillon MD [address] [place] [phone] documented as of this encounter Visit Diagnoses Not on filedocumented in this encounter Additional Health Concerns Infection Onset Date Last Indicated Resolved Time COVID (rule out) 11/12/2024 11/12/2024 11/12/2024 1:45 PM EDT documented as of this encounter Care Teams Clinical Documentation Clerk Relationship Specialty Start Date End Date Nusrat Lamb APRN [address] [place] [address] PCP - General Family Medicine 07/04/22 documented as of this encounter
--- OUTSIDE RECORDS SUMMARY | 2024-12-09 08:32 | XMS_ITS | Clinical Summary ---
Author Organization [facility] Address [address] [place] [address] Care Team Providers Care Technical Publications Manager Name Role Phone Nusrat Lamb APRN Primary Care Provider Allergies Active Allergy Reactions Criticality Noted Date [...] approved and availabe 1 kit 023 Active Additional Information Patient taking differently:1 kit Not Applicable 3 Times Daily,(No indications reported), Reported on 11/12/2024 metoprolol tartrate (LOPRESSOR) 100 MG tablet Take 1 tablet by mouth Daily. 30 tablet 2 023 Active Additional Information Patient taking differently:100 mg Oral2 Times Daily, Informant: Self, Reported on 11/12/2024 magnesium oxide (MAG-OX) 400 MG tablet Take [...] tablet by mouth Daily. Centrum Senior GlucoRevive ([place] and cinnamon) Active pantoprazole (PROTONIX) 40 MG EC tabletIndications :Gastroesophageal reflux disease without esophagitis Take 1 tablet by mouth Daily. 90 tablet 1 025 Active Lancets (onetouch ultrasoft) lancets Take [...] 2 025 Active Insulin Pen Needle (Pen [place]) 31G X 8 MM miscIndications:T ype 2 diabetes mellitus with hyperglycemia, with long-term current use of insulin Use 1 Needle Daily. 100 each 1 025 Active nystatin (MYCOSTATIN) 584824 UNIT/GM cream Apply 1 Application topically to the appropriate area as directed 2 (Two) Times a Day. 30 g 025 Active sertraline (ZOLOFT) 50 MG tabletIndications :Primary insomnia Take 1 tablet by mouth Daily. 90 tablet 3 025 Active oxybutynin XL (DITROPAN-XL) 10 MG 24 hr tablet Take 1 tablet by mouth Daily. 025 Active empagliflozin (Jardiance) 25 MG tablet tabletIndications :Type 2 diabetes mellitus with hyperglycemia, with long-term current use of insulin Take 1 tablet by mouth Daily. 90 tablet 3 Active Semaglutide, 2 MG/DOSE, (Ozempic, 2 MG/DOSE,) 8 MG/3ML solution pen-injectorIndic ations:Type 2 diabetes mellitus with hyperglycemia, with long-term current use of insulin Inject 2 mg under the skin into the appropriate area as directed 1 (One) Time Per Week. 9 mL 3 025 Active amoxicillin-clavu lanate (AUGMENTIN) 875-125 MG per tabletIndications :Acute non-recurrent pansinusitis Take 1 tablet by mouth 2 (Two) Times a Day. 14 tablet 025 Active LORazepam (ATIVAN) 2 MG tabletIndications :Primary insomnia Take 1 tablet by mouth Every 6 (Six) Hours As Needed for Anxiety. 120 tablet Active Insulin Glargine (Lantus SoloStar) 100 UNIT/ML injection pen INJECT 60-80 UNITS UNDER THE SKIN INTO THE APPROPRIATE AREA EVERY NIGHT DIRECTED 60 mL 2 025 Active olopatadine (PATANOL) 0.1 % ophthalmic solution INSTILL 1 DROP IN BOTH EYES TWICE DAILY 5 mL 6 025 Active olopatadine (PATANOL) 0.1 % ophthalmic solution Administer 1 drop to both eyes 2 (Two) Times a Day. 5 mL 6 024 2024 Discontinued Insulin Glargine (Lantus SoloStar) 100 UNIT/ML injection pen Inject 80 Units under the skin into the appropriate area as directed Every Night. INJECT 60 TO 80 UNITS UNDER THE SKIN ONE TIME DAILY DIRECTED 15 mL 3 025 2024 Discontinued LORazepam (ATIVAN) 2 MG tabletIndications :Primary insomnia Take 1 tablet by mouth Every 6 (Six) Hours As Needed for Anxiety. 60 tablet 025 2024 Discontinued(R crescencio) Active Problems Problem Noted Date Diagnosed Date Acute non-recurrent pansinusitis 11/12/2024 Benign prostatic hyperplasia with weak urinary s [...] approval went through he did not go scrap picker the medication. Will send in prescription for twice daily nystatin cream to be applied as directed to affected area Acute mucoid otitis media of both ears Assessment & Plan (02/08/2023 6:08 PM EST): Patient was treated for bronchitis at [facility] 2 weeks ago. Treatment regimen included Augmentin, [...] old. Last sleep study was done in [facility] several years ago. He state his machine [...] months. - Order for supplies sent to [employer]. Assessment & Plan (10/04/2022 12:01 PM EDT): Patient reports long-term diagnosis of sleep apnea. Followed by pulmonology in [place]. He will need to establish care with [...] by neurosurgery locally after being told in [place] he would require back surgery for spinal [...] Assessment & Plan (04/09/2023 4:47 PM EST): atient has been evaluated by neurosurgery and now [...] Assessment & Plan (02/08/2023 6:04 PM EST): atient has been evaluated by neurosurgery and now [...] prior to leaving [place]. MRI reviewed in office today showing L3-5 circumferential disc bulging, ligamentum flavum infolding and facet arthropathy contributing to left subarticular zone impingement of the traversing L5 nerve root, mild spinal canal stenosis and mild bilateral neural foraminal stenosis. Was evaluated by neurosurgery at [facility] who declined surgery at this time, receiving benefit from pain management Assessment & Plan (04/24/2024 11:59 AM EST): Patient was followed and approved for neurosurgery prior to leaving [place]. MRI reviewed in office today showing L3-5 circumferential disc bulging, ligamentum flavum infolding and facet arthropathy contributing to left subarticular zone impingement of the traversing L5 nerve root, mild spinal canal stenosis and mild bilateral neural foraminal stenosis. Was evaluated by neurosurgery at [facility] who declined surgery at this time, receiving benefit from pain management Assessment & Plan (01/09/2023 11:59 AM EST): atient was followed and approved for neurosurgery prior to leaving [place]. MRI reviewed in office today showing L3-5 circumferential disc bulging, ligamentum flavum infolding and facet arthropathy contributing to left subarticular zone impingement of the traversing L5 nerve root, mild spinal canal stenosis and mild bilateral neural foraminal stenosis. Was evaluated by neurosurgery at [facility] who declined surgery at this time, receiving benefit from pain management Assessment & Plan (07/09/2022 9:32 AM EDT): Patient was followed and approved for neurosurgery prior to leaving [place]. MRI reviewed in office today showing L3-5 circumferential disc bulging, ligamentum flavum infolding and facet arthropathy contributing to left subarticular zone impingement of the traversing L5 nerve root, mild spinal canal stenosis and mild bilateral neural foraminal stenosis. -We will refer to [facility] neurosurgery for further evaluation Type 2 diabetes mellitus wit h hyperglycemia, with long-term current use of insulin 07/04/2022 Assessment & Plan (11/02/2024 12:41 PM EDT): Diabetes is improving with treatment. Medication changes per orders. Recommended an ADA diet. Regular aerobic exercise. Reminded to get yearly retinal exam. A1c has improved slightly since last visit. Discussed options for treatment to further improve A1c. Patient is hesitant to try different medications so [...] Diabetes will be reassessed in 3 months Assessment & Plan (08/24/2024 10:12 PM EDT): [...] Patient has been followed by [facility] with a baseline creatinine noted to be 1.5-1.6 range, GFR 47. Rechecking metabolic panel today Assessment & Plan (07/01/2024 2:17 PM EDT): Continue ozempic. We discussed adding SGLT-2 inhibitor. Continue nephrology follow up. Assessment & Plan (04/24/2024 11:58 AM EST): Patient has been followed by [facility] with a baseline creatinine noted to be 1.5-1.6 range, GFR 47 since labs last obtained 2 months ago showing ongoing stability. Assessment & Plan (01/23/2024 6:16 PM EST): Patient has been followed by [facility] with a baseline creatinine noted to be 1.5-1.6 range, GFR 47 since labs last obtained 2 months ago showing ongoing stability. Assessment & Plan (10/10/2023 5:48 PM EDT): Patient has been followed by [facility] with a baseline creatinine noted to be 1.5-1.6 range, GFR 47 since labs last obtained 2 months ago showing ongoing stability. Assessment & Plan (07/11/2023 8:23 AM EDT): Now seeing nephrology associatess with GFR 55 on last check. As a result of decreased kidney function he has been taken off metformin by his investigative writer in [place] before relocating. At that time his A1c [...] has been taken off metformin by his investigative writer in [place] before relocating. At that time his A1c [...] has been taken off metformin by his investigative writer in [place] before relocating. At that time his A1c [...] has been taken off metformin by his investigative writer in [place] before relocating. At that time his A1c has been suboptimally controlled. Today we discussed need for tight glycemic and blood pressure control to preserve renal function. I discussed avoidance of nephrotoxic agents including NSAIDs Assessment & Plan (07/09/2022 9:26 AM EDT): Patient reports being followed by nephrology in [place]. However, he is unsure of his baseline [...] once daily Coronary artery disease invo lving ewiiaapaayp coronary artery of ewiiaapaayp heart without angina pectoris 12/19/2021 Overview (07/19/2023): [...] (07/19/2023): Added automatically from request for surgery [id number] Multiple closed fractures of ribs of left side 10/26/2021 07/19/2023 Irritable bowel syndrome with diarrhea 10/21/2014 08/24/2024 Encounters Date Type Department Care Team Description 11/26/2024 Refill [facility] [address] [place] [address] SILVANA MACDONALD [phone] Nusrat Lamb, JOSHUA 11/24/2024 Refill [facility] [address] [place] [address] SILVANA MACDONALD [address] Nusrat Lamb, VENDING ATTENDANT Primary insomnia 11/20/2024 Refill [facility] [address] [place] [address] SILVANA MACDONALD [address] Nusrat Lamb, VENDING ATTENDANT 11/16/2024 Refill [facility] [address] [place] [address] SILVANA MACDONALD [address] Nusrat Lamb, JOSHUA Primary insomnia 11/12/2024 1:30 PM EDT Office Visit [facility] [address] [place] [address] SILVANA MACDONALD [phone] Nusrat Lamb, VENDING ATTENDANT Type 2 diabetes mellitus with hyperglycemia, with long-term current use of insulin (Primary Dx); Cough, unspecified type; Stage 3a chronic kidney disease; Spinal stenosis, lumbar region, with neurogenic claudication; Primary hypertension; Acute non-recurrent pansinusitis 11/12/2024 Travel 11/09/2024 External PB Data [facility] [address] [facility] [place] [address] Pharmacy, [employer] 11/02/2024 11:15 AM EDT Office Visit [facility] [address] [place] [address] Shameka Redmond PA Type 2 diabetes mellitus with hyperglycemia, with long-term current use of insulin (Primary Dx) 11/02/2024 Travel 11/02/2024 Refill [facility] [address] [place] [address] [place] [address] Nusrat Lamb, VENDING ATTENDANT Primary insomnia 10/28/2024 Refill [facility] [address] [place] [address] [place] [address] Nusrat Lamb, VENDING ATTENDANT Type 2 diabetes mellitus with hyperglycemia, with long-term current use of insulin 10/21/2024 Telephone [facility] [address] [place] [address] [place] [address] Nusrat Lamb, VENDING ATTENDANT 10/12/2024 Refill [facility] [address] [place] [address] [place] [address] Nusrat Lamb, VENDING ATTENDANT Primary insomnia 09/18/2024 Refill [facility] [address] [place] [address] [place] [address] Nusrat Lamb, VENDING ATTENDANT Primary insomnia from Last 3 Months Immunizations Immunization Administration [...] Jackie Arthritis Mother Jackie COPD Mother Jackie Early Mother Jackie age 59 Hearing loss Mother Jackie Hypertension Mother Jackie Obesity Mother Jackie Hyperlipidemia Sister 1 Arabella Anoop Diabetes Sister 2 Carol Hyperlipidemia Sister 2 Carol Obesity Sister 2 Carol Relation Name Status Comments Brother 1 Jun Cosby Brother 2 Jun Father Jun Castellanos Mother Jackie Sister 1 Arabella Davalos Sister 2 Carol Social History Tobacco Use Types Packs/Day Years Used Date Smoking Tobacco: Former Cigarettes 1.4 50.2 0 02/19/1972 - 02/18/1998 Smokeless Tobacco: Never Tobacco Cessation:Counseling Given: Not Answered Alcohol Use Standard Drinks/Week Comments Not Currently 0 (1 standard drink = 0.6 oz pur e alcohol) [facility] Utilities Answer Date Recorded In the [...] often do you attend chur ch or hinduism services? Never 07/26/2024 Do you belong to any clubs o r organizations such as judaism groups, unions, fraternal or athletic groups, or [...] Brief Depression Severity Measure Score 0 10/04/2022 [facility] - Occupational Stress [...] the past 12 m [facility], were you homeless or living in a [...] Mass Index 39.46 11/12/2024 1:19 PM EDT Plan of Treatment Upcoming Encounters Date Type Department Care Team (Late st Contact Info) Description 02/25/2025 11:00 AM EST Office Visit [facility] [address] [place] [address] Sotero Dillon MD [employer] [id number] 07/06/2025 11:45 AM EDT Office Visit [facility] [address] [facility] [address] [place] [address] Sotero Dillon MD [employer] [address] [address] Health Maintenance Due Date Last Done Comments COLON CANCER SCREENING 5 YEAR SIGMOIDOSCOPY 10/14/1995 COLONOSCOPY 10/14/1995 CT COLONOGRAPHY 10/14/1995 FECAL OCCULT BLOOD TEST 10/14/1995 FIT Testing (1 year) 10/14/1995 Hepatitis B (1 of 3 - Risk 3-dose series) 2010 LIPID PANEL 08/07/2024 08/08/2023, 09/18, 07/17/2022, Additional history exists INFLUENZA VACCINE 09/18/2024 01/20/2024 DIABETIC EYE EXAM 02/05/2025 02/06/2024, , 01/26/2023, Additional history exists ZOSTER VACCINE (2 of 2) 03/23/2025 08/24/19 23, 04/06/2021, 04/05/2021 Postponed from 10/18/2022 (Patient Refused) COVID-19 Vaccine (#1) 03/24/2025 Postpo reymundo from 10/14/1955 (Patient Refused) HEMOGLOBIN A1C 05/12/2025 11/12/2024, 10/19, 08/13/2024, Additional history exists DIABETIC FOOT EXAM 07/01/2025 07/01/2024, 0 10/10/2023, 10/10/2023, Additional history exists ANNUAL WELLNESS VISIT 08/13/2025 08/13/2024 , 07/09/2023, 10/04/2022, Additional history exists URINE MICROALBUMIN-CREATININE RATIO (uACR) 08/13/2025 08/13/2024, 04/23/2024 COLOGUARD 10/15/2025 10/15/2022, 06/29/2019 COLORECTAL CANCER SCREENING [...] insulin POCT GLYCOSYLATED HEMOGLOBIN (HGB A1C) Routine 11/02/2024 10:52 AM EDT Type 2 diabetes mellitus with hyperglycemia, with long-term current use of insulin POCT GLUCOSE, BLD (NON STRIP) Routine 11/02/2024 10:48 AM EDT Type 2 diabetes mellitus with hyperglycemia, with long-term current use of insulin POC ALBUMIN/CREATININE RATIO Routine 08/13/2024 3:26 PM [...] Recently Relevant to Health Maintenance Results * Covid-19 + Flu A&B AG, Veritor (11/12/2024 1:45 PM EDT) SARS Antigen Not Detected Not Detected, Presumptive Negative Influenza A Antigen ANURAG Not Detected Not Detected Influenza B Antigen ANURAG Not Detected Not Detected Internal Control Passed Passed Lot Number [id number] Expiration Date Swab 11/12/2024 1:45 PM EDT Nusrat Lamb VENDING ATTENDANT POINT OF CARE TEST ORDERABL ES Final Result * (ABNORMAL) POC Glycosylated Hemoglobin (Hb A1C) (11/12/2024 1:31 PM EDT) Only the most recent of2 resultswithin the time period is included. Hemoglobin A1C 9.5(A) 4.5 - 5.7 % [facility] Lot Number [id number] [facility] Expiration Date [facility] Blood 11/12/2024 1:31 PM EDT Nusrat Lamb APRN POINT OF CARE TEST ORDERABL ES Final Result [facility]
[address] [place] [address], * (ABNORMAL) POC Glucose, Blood (11/02/2024 10:48 AM EDT) Glucose 185(A) 70 - 130 mg/dL Lot Number [id number] Expiration Date 04/21/25 Blood 11/02/2024 10:4 8 AM EDT Shameka TINEO POINT OF CARE TEST ORDERABLES F inal Result * POC Albumin/Creatinine Ratio Urine (08/13/2024 3:26 PM EDT) POC ALBUMIN, URINE 10 mg/L POC CREATININE, URINE 50 mg/dL POC Urine Albumin Creatinine Ratio <30 <30 Lot Number [id number] Expiration Date Urine 08/13/2024 3:26 PM EDT Nusrat Lamb APRN POINT OF CARE TEST ORDERABL ES Final Result * (ABNORMAL) Lipid Panel (08/08/2023 9:57 AM EDT) Total Cholesterol 131 100 - 199 mg/dL [facility] Triglycerides 203(H) 0 - 149 mg/dL [facility] HDL Cholesterol 29(L) >39 mg/dL [facility] VLDL Cholesterol Damon 34 5 - 40 mg/dL [facility] LDL Chol Calc (NIH) 68 0 - 99 mg/dL [facility] Blood Structure of left upper limb / Unknown 08/08/2023 9:57 AM EDT 08/08/2023 Comment:Blood Release to pat i Bharat [facility] (AMBULATORY) - 08/09/2023 9:07 AM EDT Performed at: 01 - [facility] [address] [place] [id number] Process Project Engineer: Yannick Almonte PhD, Phone: [phone] Nusrat Lamb APRN LAB BLOOD ORDERABLES Final Result [facility] ([facility]) [address] [place] [address], [facility] [address] [place] [address], * Cologuard - Stool, Per Rectum (10/15/2022 12:30 PM EDT) Cologuard Negative Negative 10/24/2022 1:39 PM EDT [facility] (CLIA #:[id number]) Comment: NEGATIVE TEST RESULT. A negative Cologuard [...] screened with both Cologuard and colonoscopy. (Jabari Marcum al, N Engl J Med 2014;370(14):7588-8662) The normal value (reference range) for this assay is negative. COLOGUARD RE-SCREENING RECOMMENDATION: Periodic colorectal cancer screening is an important part of preventive healthcare for asymptomatic individuals at average risk for colorectal cancer. Following a negative Cologuard result, the [place] Cancer Society and U.S. Multi-Society Task Force screening guidelines recommend a Cologuard re-screening interval of 3 years. References: [place] Cancer Society Guideline for Colorectal Cancer Screening: https://www.cancer.org/cancer/nrktp-dcvcce-oqaizc/atmdmlgso-oggxilqhx-wtwimpi/ac s-rec ommendations.html.; Cristo DK, Jenifer CR, Karoline KelloggK, Colorectal Cancer Screening: Recommendations for Physicians and Patients from the U.S. Multi-Society Task Force on Colorectal Cancer Screening , Am J Gastroenterology 2017; 112:6412-4312. TEST DESCRIPTION: Composite algorithmic analysis of stool [...] screened with both Cologuard and colonoscopy. (Jabari Marcum al, N Engl J Med 2014;370(14):5552-1388.) Cologuard may produce a false negative or false positive result (no colorectal cancer or precancerous polyp present at colonoscopy follow up). A negative Cologuard test result does not guarantee the absence of CRC or advanced adenoma (pre-cancer). The current Cologuard screening interval is every 3 years. (Australian Cancer Society and U.S. Multi-Society Task Force). Cologuard performance data in a 10,000 patient pivotal study using colonoscopy as the reference method can be accessed at the following location: www.Snootlab.com/results. Additional description of the Cologuard test process, warnings and precautions can be found at www.cologDLSrd.com. Stool specimen (specimen) Specimen from rectum / Unknown 10/15/2022 12:30 PM EDT 10/17/2022 4:31 PM EDT Nusrat Lamb APRN BODY FLUIDS AND STOOLS ORDE RABDYLLAN Final Result [facility] (CLIA #:[id number]) [address] [place] [address], * Hepatitis C Antibody (07/17/2022 9:24 AM [...] 9:24 AM EDT 07/17/2022 Comment:Blood Release to [facility] Narrative [facility] (AMBULATORY) - 07/18/2022 10:07 AM EDT Performed at: 01 - [address] [id number] Process Project Engineer: Yannick Almonte PhD, Phone: [phone] Nusrat Lamb APRN LAB BLOOD ORDERABLES Final Result Performing Organization Address City/[facility]/ZIP Co de Phone Number [facility] ([facility]BUL[facility]ORY) [address] [place] [address], [place] [phone] [facility] [address] [place] [address], [place] [phone] from Last 3 Months or Most Recently Relevant to Health Maintenance Insurance [facility] MEDICARE ADVANTAGE PPO Care Teams Technical Publications Manager Relationship Specialty Start Date End Date Nusrat Lamb APRN [address] [place] [address] PCP - General Family Medicine 07/04/22
--- OUTSIDE RECORDS SUMMARY | 2024-12-09 08:32 | XMS_ITS | Patient Health Record ---
Author Organization [facility] Address [address] [facility] [address] [place], [place] [id number] Care Team Providers Care Cuff Turner Name Role Phone Rkiki JUDGE, [facility] Primary Care Provider Griffin Baltazar Unavailable [phone] Allergies Allergen (clinical drug ingredient) Drug/Non Drug Allergy documented on EMR Reaction Allergy Type Onset Date Status Cerumen X (uncoded) Unknown Allergy Active Reason For Referral No Information Medications Medication SIG (Take, Route, Fr equency, Duration) Notes Start Date End Date Status Vitamins To Go Men A ctive Fish Oil Active Budesonide Active Fenofibrate Active Glucosamine MSM Complex Active oxyCODONE HCl 5 MG 1-2 tablets Orally e very 4- 6 hrs; Duration: 7 days 03/31/2018 Active Metoprolol Active Atorvastatin Calcium Active ASA Active Vitamin C Active Lotrel Active Crestor Active Omeprazole Active buPROPion HCl Active Lantus Active Vitamin B 12 Active metFORMIN HCl Active tiZANidine HCl Activ e Social History Tobacco Use: Social History Observation Description Date Details (start date - stop date) Former Smoker NA - NA Tobacco Use/Smoking Question Answer Notes Are you a former smoker How long has it been since you last smoked? > 10 years Problems Problem Type SNOMED Code ICD Code Onset Dates Problem Status W/U Status Risk Notes Problem Lower limb joint arthritis (012587713) Osteoarthrosis, unspecified whether generalized or localized, lower leg (715.96) Active confirmed Problem Pain in joint, lower leg (719.46) Active confirmed Problem Localized, primary osteoarthritis of the pelvic region and thigh (558473051) Unilateral primary osteoarthritis, right hip (M16.11) Active confirmed Problem Primary osteoarthritis (054147362) Unilateral primary osteoarthritis, right knee (M17.11) Active confirmed Problem Derangement of knee (03911057) Unspecified internal derangement of right knee (M23.91) Active confirmed Problem Pain of right knee region (finding) (079258843328801) Pain in right knee (M25.561) Active confirmed Problem Total hip replacement Prosthesis (183314500) Presence of right artificial hip joint (Z96.641) Active confirmed Plan Of Treatment No Information Insurance Providers Payer Name Payer Address Payer Phone Subscriber Number Group Number Insured Name Patient Relationship to Insured Coverage Start Date Coverage End Date Medicare Part B [address] [place] [phone] [id number] Anthony Jacob Self - patient is the insured 9 [employer] Senior [facility] [address] [address] [place] [address] [id number] Anthony Jacob Self - patient is the insured 9 Medical (General) History Medical History History ICD Code Diabetes High cholesterol High blood pressure Sleep apnea Surgical History Surgery Date(Month/Year) Cholecystectomy 1976 Tonsillectomy 1969 Gastric Bypass 2006 Knee scope 2009 R knee arthroscopy 10/02/17 R BREANNA 02/03/18 Hospitalization History Reason Date(Month/Year) above surgery
--- OUTSIDE RECORDS SUMMARY | 2024-12-09 08:32 | XMS_ITS | Encounter Summary ---
Author Organization [facility] Address [address] [id number] Care Team Providers Care Payroll Bookkeeper Name Role Phone Nusrat Lamb PRODUCT MARKETING DIRECTOR Primary Care Provider +1 [phone] Reason for Visit * Reason Onset Date Comments MD LAMB MEDICATION CONCERN 07/20/2022 Encounter Details Date Type Department Care Team (Late st Contact Info) Description 07/20/2022 Telephone [facility] PRIMARY CARE [address] [place] [phone] Nusrat Lamb, PRODUCT MARKETING DIRECTOR 6 [place] [address] MD LAMB MEDICATION CONCERN Social [...] Jacob Relationship: Self Best call back number: [phone] Requested Prescriptions: Requested Prescriptions Pending Prescriptions Disp [...] Daily. Pharmacy where request should be sent: [address] [place] [address] [facility] [phone] Last office visit with prescribing clinician: 07/04/2022 [...] Jacob Relationship: Self Best call back number: [phone] What medications are you currently taking: Current [...] Visit [facility] ENDOCRINOLOGY [address] [phone] Sotero Dillon MD [address] [place] [address] 07/06/2025 11:45 AM EDT Office Visit [facility] END[facility]CR[facility]OLOG[facility] [address] [phone] Sotero Dillon MD [address] [place] [address] documented as of this encounter Visit Diagnoses Diagnosis Primary insomnia Persistent disorder of initiating or maintaining sleep documented in this encounter Additional Health Concerns Infection Onset Date Last Indicated Resolved Time COVID (rule out) 11/12/2024 11/12/2024 11/12/2024 1:45 PM EDT Assessment Noted Time PHQ-2 Depression Total Score: 4 07/05/19 1:22 PM EDT documented as of this encounter Care Teams Payroll Bookkeeper Relationship Specialty Start Date End Date Nusrat Lamb APRN 6 [place] [address] PCP - General Family Medicine 07/04/22 documented as of this encounter
--- OUTSIDE RECORDS SUMMARY | 2024-12-09 08:32 | XMS_ITS | Encounter Summary ---
[facility] Address [address] [place] [address] Care Team Providers Care Conference Manager Name Role Phone Nusrat Lamb AUDITOR MEDICAL CLAIMS Primary Care Provider +[phone] Reason for Visit * Reason Comments Med Refill Encounter Details Date Type Department Care Team (Late st Contact Info) Description 12/25/2022 Refill [facility] PRIMARY [facility]ARE [address] [place] [phone] Nusrat Lamb, AUDITOR MEDICAL CLAIMS 6 [place], [place] [phone] Anxiety Social History Tobacco Use Types Packs/Day [...] Description 02/25/2025 11:00 AM EST Office Visit [facility] ENDOCRINOLOGY [address] [phone] Sotero Dillon MD [address] [address] 07/06/2025 11:45 AM EDT Office Visit [facility] ENDOCR[facility] [address] [place] [phone] Sotero Dillon MD [facility] [address] [phone] documented as of this encounter Visit Diagnoses Diagnosis Anxiety Anxiety state, unspecified documented in this encounter Additional Health Concerns Infection Onset Date Last Indicated Resolved Time COVID (rule out) 11/12/2024 11/12/2024 11/12/2024 1:45 PM EDT documented as of this encounter Care Teams Conference Manager Relationship Specialty Start Date End Date Nusrat Lamb APRN 6 [place] [address] PCP - General Family Medicine 07/04/22 documented as of this encounter
--- OUTSIDE RECORDS SUMMARY | 2024-12-09 08:32 | XMS_ITS | Encounter Summary ---
[facility] Address [address] [place] [address] Care Team Providers Care Information Technology Administrator Name Role Phone Nusrat Lamb GEOLOGICAL MANAGER Primary Care Provider [phone] Reason for Visit * Reason Comments Med Refill Encounter Details Date Type Department Care Team (Late st Contact Info) Description 11/24/2024 Refill [facility] PRIMARY CARE [address] [place] [phone] Nusrat Lamb, GEOLOGICAL MANAGER [address] [place] [address] Primary insomnia Social History Tobacco Use Types Packs/Day Years Used Date Smoking Tobacco: Former Cigarettes 1.4 50.2 0 02/19/1972 - 02/18/1998 Smokeless Tobacco: Never Alcohol Use Standard Drinks/Week Comments Not Currently 0 (1 standard drink = 0.6 oz pur e alcohol) [facility] Utilities Answer Date Recorded In the past 12 months has [facility] [employer] gas, oil, or water [employer] threatened to shut off services in your [...] often do you attend chur ch or church services? Never 07/26/2024 Do you belong to any clubs o r organizations such as druze groups, unions, fraternal or athletic groups, or [...] Brief Depression Severity Measure Score 0 10/04/2022 [facility] - Occupational Stress Questionnaire Answer Date [...] encounter Miscellaneous Notes * Telephone Encounter - Paulette Crzu MA - 11/24/2024 12:01 PM EDT Refill sent on 11/16 RX denied documented in this encounter Plan of Treatment Upcoming Encounters Date Type Department Care Team (Late st Contact Info) Description 02/25/2025 11:00 AM EST Office Visit [facility] ENDOCRINOLOGY [address] [phone] Sotero Dillon MD [facility] [address] 07/06/2025 11:45 AM EDT Office Visit [facility] ENDOCRINOLOG[facility] [address] [phone] Sotero Dillon MD [facility] [address] [address] documented as of this encounter Visit Diagnoses Diagnosis Primary insomnia Persistent disorder of initiating or maintaining sleep documented in this encounter Care Teams Information Technology Administrator Relationship Specialty Start Date End Date Nusrat Lamb APRN 6 [place] [address] PCP - General Family Medicine 07/04/22 documented as of this encounter
--- OUTSIDE RECORDS SUMMARY | 2024-12-09 08:32 | XMS_ITS | Encounter Summary ---
Author Organization [facility] Address [address] [place] [address] Care Team Providers Care Interactive Graphic Designer Name Role Phone Nusrat Lamb APRN Primary Care Provider [phone] Reason for Visit * Reason Onset Date Comments Med Refill 11/16/2024 Encounter Details Date Type Department Care Team (Late st Contact Info) Description 11/16/2024 Refill [facility] PRIMARY CARE [address] [place] [phone] Nusrat Lamb, JOSHUA 6 [place] [address] Primary insomnia Social History Tobacco Use Types Packs/Day Years Used Date Smoking Tobacco: Former Cigarettes 1.4 50.2 0 02/19/1972 - 02/18/1998 Smokeless Tobacco: Never Alcohol Use Standard Drinks/Week Comments Not Currently 0 (1 standard drink = 0.6 oz pur e alcohol) [facility] Utilities Answer Date Recorded In the past 12 months has e [employer], gas, oil, or water [employer] threatened to shut off services in your [...] How often do you attend chur or jewish services? Never 07/26/2024 Do you belong to any clubs o r organizations such as taoist groups, unions, fraternal or athletic groups, or [...] Brief Depression Severity Measure Score 0 10/04/2022 [facility] of Occupat ional Health - Occupational Stress [...] any time in the past 12 m [facility], were you homeless or living in a long-term (including now)? No 07/26/2024 Housing Stability Answer [...] encounter Miscellaneous Notes * Telephone Encounter - Zahida Norton RegSched Rep - 11/16/2024 10:17 AM EDT Caller: Anthony Jacob Relationship: Self Best call back number: Requested Prescriptions: Requested Prescriptions Pending Prescriptions Disp Refills LORazepam (ATIVAN) 2 MG tablet 60 tablet 0 Sig: Take 1 tablet by mouth Every 6 (Six) Hours As Needed for Anxiety. Pharmacy where request should be sent: [facility] - [facility] [address] - [phone] [facility] [phone] FX Last office visit with prescribing clinician: 11/12/2024 Last telemedicine visit with prescribing clinician: Visit date not found Next office visit with prescribing clinician: Visit date not found Additional details provided by patient: PATIENT HAS APPROXIMATELY (1) WEEK SUPPLY OF MEDICATION Does the patient have less than a 3 day supply: [] Yes [x] No Would you like a call back once the refill request has been completed: [] Yes [] No If the office needs to give you a call back, can they leave a voicemail: [] Yes [] No Mely Tadeo Rep 11/16/24 10:17 EDT documented in this encounter Plan of Treatment Upcoming Encounters Date Type Department Care Team (Late st Contact Info) Description 02/25/2025 11:00 AM EST Office Visit [facility] ENDOCRINOLOGY [address] [phone] Sotero Dillon MD [address] [place] [phone] 07/06/2025 11:45 AM EDT Office Visit [facility] [address] [phone] Sotero Dillon MD [facility] [address] [address] documented as of this encounter Visit Diagnoses Diagnosis Primary insomnia Persistent disorder of initiating or maintaining sleep documented in this encounter Care Teams Interactive Graphic Designer Relationship Specialty Start Date End Date Nusrat Lamb APRN [address] [place], [place] [phone] PCP - General Family Medicine 07/04/22 documented as of this encounter
--- NOTE | 2024-12-09 08:33 | ECG_ITS ---
APPROVED REPORT Exam: Resting ECG HR:90 bpm ECG Measurements Heart Rate 90 AXES FL 167 P 47 QRSd 93 QRS -2 QT 358 T 32 QTc 406 Conclusion SINUS RHYTHM NORMAL ECG UNCONFIRMED REPORT Electronically signed by : COTY FOSS, 12/10/2024 06:45:49
--- OUTSIDE RECORDS SUMMARY | 2024-12-09 08:33 | XMS_ITS | Encounter Summary ---
[facility] Address [address] [place] [address] Care Team Providers Care Wood Fuel Pelletizer Name Role Phone Nusrat Lamb APRN Primary Care Provider [phone] Encounter Details Date Type Department Care Team (Late st Contact Info) Description 11/09/2024 External PBMM Data [facility] [address] [place] [phone] Pharmacy, Payor Data Social History Tobacco Use Types Packs/Day Years Used Date Smoking Tobacco: Former Cigarettes 1.4 50.2 0 02/19/1972 - 02/18/1998 Smokeless Tobacco: Never Alcohol Use Standard Drinks/Week Comments Not Currently 0 (1 standard drink = 0.6 oz pur e alcohol) [facility] Utilities Answer Date Recorded In [...] often do you attend chur ch or buddhism services? Never 07/26/2024 Do you belong to any clubs o r organizations such as evangelical groups, unions, fraternal or athletic groups, or [...] Brief Depression Severity Measure Score 0 10/04/2022 [facility] - Occupational Stress Questionnaire Answer Date Recorded [...] any time in the past 12 m [facility], were you homeless or [...] Description 02/25/2025 11:00 AM EST Office Visit [facility] ENDOCRINOLOGY [address] [place] [phone] Sotero Dillon MD [address] [facility] [address] [address] 07/06/2025 11:45 AM EDT Office Visit [facility] [address] [place] [address] [place] [phone] Sotero Dillon MD [address] [address] documented as of this encounter Visit Diagnoses Not on filedocumented in this encounter Care Teams Wood Fuel Pelletizer Relationship Specialty Start Date End Date Nusrat Lamb APRN 6 [place] [address] PCP - General Family Medicine 07/04/22 documented as of this encounter
--- OUTSIDE RECORDS SUMMARY | 2024-12-09 08:33 | XMS_ITS | Encounter Summary ---
Author Organization [facility] Address [address] [place] [address] Care Team Providers Care Email Production Consultant Name Role Phone Nusrat Lamb APRN Primary Care Provider [phone] Reason for Referral * Consultation (Routine) - Authorized - Pending Scheduling Specialty Diagnoses / Procedures Referred By Mamadou t Referred To Contact Pulmonary Disease Diagnoses Obstructive sleep apnea Procedures CA OFFICE/OUTPATIENT NEW MODERATE MDM 45 MINUTES Nusrat Lamb APRN 6 [place] [address] Phone: tel: fax: Rachel Morillo MD [address] [place] [address] [place] [address] Phone: tel: fax: Referral ID Status Reason Start Date Expiration Date Visits Requested Visits Authorized [id number] Authorized - Pending Scheduling Specialty Services Required 10/21/2024 01/20/2026 1 1 Encounter Details Date Type Department Care Team (Late st Contact Info) Description 10/21/[address] [facility] PRIMARY CARE [address] [place] [phone] Nusrat Lamb APRN 6 [place] [address] Social History Tobacco Use Types Packs/Day Years Used Date Smoking Tobacco: Former Cigarettes 1.4 49.9 0 02/19/1972 - 02/18/1998 Smokeless Tobacco: Never Alcohol Use Standard Drinks/Week Comments Not Currently 0 (1 standard drink = 0.6 oz pur e alcohol) [facility] Utilities Answer Date Recorded In the [...] any clubs o r organizations such as adventist groups, unions, fraternal or athletic groups, or [...] Brief Depression Severity Measure Score 0 10/04/2022 [employer] [place] of Occupat ional Health - Occupational Stress [...] time in the past 12 m [facility], were you homeless or living in a fpc (including now)? No 07/26/2024 Housing Stability Answer [...] encounter Miscellaneous Notes * Telephone Encounter - Triston Smith RegSched Rep - 10/21/2024 9:56 AM EDT Caller: Anthony Jacob Relationship: Self Best call back number: Telephone Information: What is the medical concern/diagnosis: SLEEP APNEA What specialty or service is being requested: PATIENT IS NEEDING 2 ORDERS. HE IS NEEDING NEW STUFF FOR HIS PAP MACHINE AND HE IS NEEDING AN ORDER TO A RESPIRATORY DOCTOR, BUT HE WANTS TO SEE ONE IN [place] IF POSSIBLE documented in this encounter Plan of Treatment Upcoming Encounters Date Type Department Care Team (Late st Contact Info) Description 02/25/2025 11:00 AM EST Office Visit [facility] ENDOCRINOLOGY [address] [phone] Sotero Dillon MD [address] [place] [address] 07/06/2025 11:45 AM EDT Office Visit [facility] [facility] [address] [phone] Sotero Dillon MD [facility] [address] documented as of this encounter Visit Diagnoses Diagnosis Obstructive sleep apnea- Primary Obstructive sleep apnea (adult) (pediatric) documented in this encounter Care Teams Email Production Consultant Relationship Specialty Start Date End Date Nusrat Lamb APRN 6 [place] [address] PCP - General Family Medicine 07/04/22 documented as of this encounter
--- OUTSIDE RECORDS SUMMARY | 2024-12-09 08:33 | XMS_ITS | Encounter Summary ---
Author Organization [facility] Address [address] [place] [address] Care Team Providers Care Production Team Member Name Role Phone Nusrat Lamb APRN Primary Care Provider [phone] Reason for Visit * Reason Onset Date Comments Med Refill 10/12/2024 Encounter Details Date Type Department Care Team (Late st Contact Info) Description 10/12/2024 Refill [facility] PRIMARY CARE [address] [place] [phone] Nusrat Lamb, JOSHUA [address] [place] [address] Primary insomnia Social History Tobacco Use Types Packs/Day Years Used Date Smoking Tobacco: Former Cigarettes 1.4 49.9 0 02/19/1972 - 02/18/1998 Smokeless Tobacco: Never Alcohol Use Standard Drinks/Week Comments Not Currently 0 (1 standard drink = 0.6 oz pur e alcohol) [facility] Utilities Answer Date Recorded In the past [address] [employer], gas, oil, or water [employer] threatened to shut off services in your [...] How often do you attend chur or buddhism services? Never 07/26/2024 Do you belong to any clubs o r organizations such as confucianism groups, unions, fraternal or athletic groups, or [...] Brief Depression Severity Measure Score 0 10/04/2022 [facility] of Occupat ional Health - Occupational Stress [...] any time in the past 12 m [facility], were you homeless or living in a [...] encounter Miscellaneous Notes * Telephone Encounter - Angie Mccartney RegSched Rep - 10/12/2024 9:27 AM EDT Caller: Anthony Jacob Relationship: Self Best call back number: Telephone Information: Requested Prescriptions: Requested Prescriptions Pending Prescriptions Disp Refills LORazepam (ATIVAN) 2 MG tablet 60 tablet 0 Sig: Take 1 tablet by mouth Every 6 (Six) Hours As Needed for Anxiety. Pharmacy where request should be sent: [facility] - [facility] [address] - [phone] - [phone] FX Last office visit with prescribing clinician: 08/13/2024 Last telemedicine visit with prescribing clinician: Visit date not found Next office visit with prescribing clinician: 11/12/2024 Additional details provided by patient: Does the patient have less than a 3 day supply: [x] Yes [] No Would you like a call back once the refill request has been completed: [] Yes [x] No If the office needs to give you a call back, can they leave a voicemail: [] Yes [x] No Mely Thorne Rep 10/12/24 09:28 EDT documented in this encounter Plan of Treatment Upcoming Encounters Date Type Department Care Team (Late st Contact Info) Description 02/25/2025 11:00 AM EST Office Visit [facility] ENDOCRINOLOGY [address] [phone] Sotero Dillon MD [address] [place] [address] 07/06/2025 11:45 AM EDT Office Visit [facility] ENDOCRINOLOGY [address] [phone] Sotero Dillon MD [address] [place] [address] documented as of this encounter Visit Diagnoses Diagnosis Primary insomnia Persistent disorder of initiating or maintaining sleep documented in this encounter Care Teams Production Team Member Relationship Specialty Start Date End Date Nusrat Lamb APRN [address] [place] [address] PCP - General Family Medicine 07/04/22 documented as of this encounter
--- OUTSIDE RECORDS SUMMARY | 2024-12-09 08:33 | XMS_ITS | Encounter Summary ---
Author Organization [facility] Address [address] [place] [address] Care Team Providers Care Levi Maker Name Role Phone Nusrat Lamb APRN Primary Care Provider [phone] Encounter Details Date Type Department Care Team (Latest Contact Info) Description 11/02/2024 Travel Social History Tobacco Use Types Packs/Day Years Used Date Smoking Tobacco: Former Cigarettes 1.4 50.2 0 02/19/1972 - 02/18/1998 Smokeless Tobacco: Never Alcohol Use Standard Drinks/Week Comments Not Currently 0 (1 standard drink = 0.6 oz pur e alcohol) [facility] Utilities Answer Date Recorded In [...] any clubs o r organizations such as anglican groups, unions, fraternal or athletic groups, or [...] Brief Depression Severity Measure Score 0 10/04/2022 [facility] - Occupational Stress Questionnaire Answer [...] any time in the past 12 m [facility], were you homeless or living in a half-way (including now)? No 07/26/2024 Housing Stability Answer [...] Visit [facility] ENDOCRINOLOGY [address] [phone] Sotero Dillon MD [address] [place] [address] 07/06/2025 11:45 AM EDT Office Visit [facility] [address] [phone] Sotero Dillon MD [address] [place] [phone] documented as of this encounter Visit Diagnoses Not on filedocumented in this encounter Care Teams Levi Maker Relationship Specialty Start Date End Date Nusrat Lamb APRN 6 [place] [address] PCP - General Family Medicine 07/04/22 documented as of this encounter
--- OUTSIDE RECORDS SUMMARY | 2024-12-09 08:33 | XMS_ITS | Encounter Summary ---
Author Organization [facility] Address [address] [place] [address] Care Team Providers Care Preschool Assistant Teacher Name Role Phone Nusrat Lamb IMPREGNATOR ELECTROLYTIC CAPACITORS Primary Care Provider [phone] Reason for Visit * Reason Comments Med Refill Encounter Details Date Type Department Care Team (Late st Contact Info) Description 10/28/2024 Refill [facility] PRIMARY CARE [address] [place] [phone] Nusrat Lamb, IMPREGNATOR ELECTROLYTIC CAPACITORS 6 [place] [address] Type 2 diabetes mellitus with hyperglycemia, with long-term current use of insulin Social History Tobacco Use Types Packs/Day Years Used Date Smoking Tobacco: Former Cigarettes 1.4 49.9 0 02/19/1972 - 02/18/1998 Smokeless Tobacco: Never Alcohol Use Standard Drinks/Week Comments Not Currently 0 (1 standard drink = 0.6 oz pur e alcohol) [facility] Utilities Answer Date Recorded In the past 12 months has e [employer], gas, oil, or water [employer] threatened to shut off services in your [...] How often do you attend chur or jehovah's witness services? Never 07/26/2024 Do you belong to any clubs o r organizations such as congregation groups, unions, fraternal or athletic groups, or [...] Brief Depression Severity Measure Score 0 10/04/2022 [facility] - Occupational Stress Questionnaire Answer [...] time in the past 12 m [facility], were you homeless or living in a [...] Telephone Encounter - Ariana Scott MA - 10/28/2024 7:53 AM EDT Rx sent documented in this encounter Plan of Treatment Upcoming Encounters Date Type Department Care Team (Late st Contact Info) Description 02/25/2025 11:00 AM EST Office Visit [facility] ENDOCRINOLOGY [address] [phone] Sotero Dillon MD [address] [phone] 07/06/2025 11:45 AM EDT Office Visit [facility] ENDOCRINOLOGY [address] [phone] Sotero Dillon MD [facility] [address] [address] documented as of this encounter Visit Diagnoses Diagnosis Type 2 diabetes mellitus with hyperglycemia, with long-term current use of insulin documented in this encounter Care Teams Preschool Assistant Teacher Relationship Specialty Start Date End Date Nusrat Lamb, IMPREGNATOR ELECTROLYTIC CAPACITORS [address] [place] [address] PCP - General Family Medicine 07/04/22 documented as of this encounter
--- OUTSIDE RECORDS SUMMARY | 2024-12-09 08:33 | XMS_ITS ---
Author Organization [facility] Address [address] [place] [address] Care Team Providers Care Pss Delivery Professional Name Role Phone Nusrat Lamb APRN Primary Care Provider High Risk Care Management Status:Monitoring (Active) Start date:03/19/2024 Enrollment date:03/24/2024 Enrollment reason:Identified using claims or encounter data Related social drivers of health:Social Connections, Financial Resource Strain, Stress, Physical Activity, Food Insecurity, Transportation Needs, Housing Stability Case Team Name Relationship Phone Shruthi Dubois RN(Responsible Staff) Ambulator y Pit Steward [phone] Continued Care and Services Coordination
--- OUTSIDE RECORDS SUMMARY | 2024-12-09 08:33 | XMS_ITS | Encounter Summary ---
Author Organization [facility] Address [address] [place] [address] Care Team Providers Care Analytics Leader Name Role Phone Nusrat Lamb APRN Primary Care Provider [phone] Reason for Visit * Reason Onset Date Comments Med Refill 11/02/2024 Encounter Details Date Type Department Care Team (Late st Contact Info) Description 11/02/2024 Refill [facility] [address] [place] [phone] Nusrat Lamb, JOSHUA [address] [place] [address] Primary insomnia Social History Tobacco Use Types Packs/Day Years Used Date Smoking Tobacco: Former Cigarettes 1.4 50.2 0 02/19/1972 - 02/18/1998 Smokeless Tobacco: Never Alcohol Use Standard Drinks/Week Comments Not Currently 0 (1 standard drink = 0.6 oz pur e alcohol) [facility] Utilities Answer Date Recorded In the past 12 months has e [employer], gas, oil, or water [employer] threatened to shut off services in your [...] any clubs o r organizations such as buddhist groups, unions, fraternal or athletic groups, or [...] Brief Depression Severity Measure Score 0 10/04/2022 [facility] - Occupational [...] any time in the past 12 m [facility], were you homeless or living in [...] encounter Miscellaneous Notes * Telephone Encounter - Rebecca Chinchilla RegSched Rep - 11/02/2024 9:49 AM EDT Caller: Anthony Jacob Relationship: Self Best call back number: [phone] Requested Prescriptions: Requested Prescriptions Pending Prescriptions Disp Refills LORazepam (ATIVAN) 2 MG tablet 60 tablet 0 Sig: Take 1 tablet by mouth Every 6 (Six) Hours As Needed for Anxiety. Pharmacy where request should be sent: [facility] MAIL DELIVERY - [facility] [address] - [phone] [facility] [phone] FX Last office visit with prescribing clinician: 08/13/2024 Last telemedicine visit with prescribing clinician: Visit date not found Next office visit with prescribing clinician: 11/12/2024 Additional details provided by patient: OUT OF MEDICATION Does the patient have less than a 3 day supply: [x] Yes [] No Would you like a call back once the refill request has been completed: [] Yes [x] No If the office needs to give you a call back, can they leave a voicemail: [] Yes [x] No Mely Ayoub 11/02/24 09:50 EDT documented in this encounter Plan of Treatment Upcoming Encounters Date Type Department Care Team (Late st Contact Info) Description 02/25/2025 11:00 AM EST Office Visit [facility] [address] [phone] Sotero Dillon MD [address] [place] [id number] 07/06/2025 11:45 AM EDT Office Visit [facility] [address] [phone] Sotero Dillon MD [address] [place] [phone] documented as of this encounter Visit Diagnoses Diagnosis Primary insomnia Persistent disorder of initiating or maintaining sleep documented in this encounter Care Teams Analytics Leader Relationship Specialty Start Date End Date Nusrat Lamb APRN [address] [place] [phone] PCP - General Family Medicine 07/04/22 documented as of this encounter
--- NOTE | 2024-12-09 08:35 | XR_ITS ---
FINAL REPORT CLINICAL HISTORY: Found down COMPARISON: None FINDINGS: No acute pulmonary opacity is present. There is no evidence of effusion or pneumothorax. Mediastinum is unremarkable. Heart size is normal. IMPRESSION: No acute abnormality. Reviewed, Interpreted and Dictated by Kathy Sheridan MD Transcribed by Lucia Jorgensen Authenticated and . [facility]
--- NOTE | 2024-12-09 08:35 | CT_ITS ---
FINAL REPORT TECHNIQUE: Noncontrast exam This study was performed with techniques to keep radiation doses as low as reasonably achievable, (ALARA). Individualized dose reduction techniques using automated exposure control or adjustment of mA and/or kV according to the patient's size were employed. CLINICAL HISTORY: possible stroke COMPARISON: None FINDINGS: Mild atrophy and chronic ischemic white matter changes are noted. No cortical edema is present. There is no mass or hemorrhage. Ventricles are normal. Bone windows show no skull fracture or obvious obstructive lesion. IMPRESSION: 1. No acute intracranial abnormality or obvious mass. 2. Atrophy and chronic ischemic white matter changes as above. Reviewed, Interpreted and Dictated by Kathy Sheridan MD Transcribed by Lucia Jorgensen Authenticated and '[facility]
--- NOTE | 2024-12-09 08:35 | CT_ITS ---
FINAL REPORT CLINICAL HISTORY: possible stroke COMPARISON: None FINDINGS: CTA HEAD TECHNIQUE: Thin section axial CT with contrast with 3D MIP reconstruction This study was performed with techniques to keep radiation doses as low as reasonably achievable, (ALARA). Individualized dose reduction techniques using automated exposure control or adjustment of mA and/or kV according to the patient's size were employed. FINDINGS: No aneurysm is seen. Major intracranial vessels are patent without significant stenosis. . IMPRESSION: Unremarkable This study was performed using automated techniques to achieve radiation exposure as low as reasonably achievable Reviewed, Interpreted and Dictated by Kathy Sheridan MD Transcribed by Lucia Jorgensen Authenticated and [facility]
--- NOTE | 2024-12-09 08:35 | CT_ITS ---
FINAL REPORT CLINICAL HISTORY: possible stroke COMPARISON: None FINDINGS: CT NECK ANGIO, WITHOUT AND WITH CONTRAST TECHNIQUE: Thin section axial CT with contrast with multiplanar 3D MIP reconstruction. This study was performed with techniques to keep radiation doses as low as reasonably achievable, (ALARA). Individualized dose reduction techniques using automated exposure control or adjustment of mA and/or kV according to the patient's size were employed. NASCET criteria and technique was utilized during interpretation. FINDINGS: Aortic arch: Arch shows no significant narrowing. Great vessel origins are widely patent. Right carotid: There is moderate plaque disease in the proximal right internal carotid artery, producing approximately 50% luminal diameter stenosis. Left carotid: There is mild plaque disease in the proximal left internal carotid artery, producing approximately 20 to 30% luminal diameter stenosis. Vertebrals: Left vertebral artery is dominant. No significant stenosis is present. Note is made of a long segment wall thickening of the thoracic esophagus, that may be secondary to esophagitis. IMPRESSION: 1. Approximately 50% stenosis of the proximal right internal carotid artery. 2. Approximately 20 to 30% stenosis of the proximal left internal carotid artery. 3. Long segment wall thickening of the thoracic esophagus, which may be secondary to esophagitis. This study was performed using automated techniques to achieve radiation exposure as low as reasonably Reviewed, Interpreted and Dictated by Kathy Sheridan MD Transcribed by Lucia Jorgensen Authenticated and [facility]
--- NOTE | 2024-12-09 08:39 | HMH.EDGENADL ---
Discharge Plan Disposition Patient Disposition: Admitted Prescriptions Prescriptions: No Action Ozempic 0.25 mg or 0.5 mg (2 mg/3 mL) pen injector 0.5 mg SQ WEEKLY olopatadine 0.1 % drops Eye-Both BID Patient Comments: INSTILL 1 DROP IN BOTH EYES TWICE DAILY atorvastatin [Lipitor] 40 mg tablet 40 mg PO DAILY metoprolol tartrate [Lopressor] 100 mg tablet 100 mg PO DAILY glipizide [Glucotrol XL] 10 mg tablet extended release 24hr 10 mg PO BID aspirin [Adult Low Dose Aspirin] 81 mg tablet,delayed release (DR/EC) 81 mg PO DAILY lorazepam [Ativan] 2 mg tablet 2 mg PO HS PRN amlodipine [Norvasc] 10 mg tablet 10 mg PO DAILY hydrochlorothiazide 25 mg tablet 25 mg PO DAILY sertraline [Zoloft] 50 mg tablet 50 mg PO DAILY tizanidine [Zanaflex] 4 mg capsule 4 mg PO Q8H PRN fenofibrate 160 mg tablet 160 mg PO DAILY pregabalin [Lyrica] 150 mg capsule 150 mg PO BID pantoprazole [Protonix] [address] for susp in packet 40 mg PO DAILY magnesium oxide 400 mg magnesium capsule 400 mg PO BID Jardiance 10 mg tablet 10 mg PO DAILY oxybutynin chloride 10 mg tablet extended release 24hr 10 mg PO DAILY 90 Days Qty: 90 1RF tamsulosin [Flomax] 0.4 mg capsule 0.4 mg PO DAILY 90 Days Qty: 90 1RF Rx Instructions: Take 1/2 hour after same meal daily. Referrals Follow up/Referrals: Nusrat Lamb APRN [Primary Care Provider, Medical] - See instructions Clinical Impressions Clinical Impression: AMS (altered mental status), Hypotension Instructions Patient Instructions: DI for Altered Mental Status Print Language Print Language: Italian Discharge ED Provider: Akhil Ponce General Adult HPI General Chief complaint: Altered Mental Status Stated complaint: Fall Time Seen by Provider: 12/09/24 08:35 Mode of Arrival: EMS Source of Information: Patient and EMS Limitations: No Limitations History of Present Illness HPI narrative: Anthony Jacob is a 74y male with a history of diabetes, GERD, anxiety, depression, hypertension, hyperlipidemia, cholecystectomy who presents to the emergency department via EMS for slurred speech and being found down on the floor. Per EMS, at some point overnight, patient was noted to be in the floor. Per patient, this happened at approximately 4-4 30 this morning. EMS was initially called out for lift assist, however they state that he was unsteady on his feet. They also noted that he was slow to respond to questions and sometimes slurring his words. Stroke scale was negative en route with EMS. I did discuss with patient's sister, whom he lives with, Arabella Davalos, the events that led up to this. She states that he had gotten a hold of a medication that is not prescribed to him called Soma and took this last night. She states that this has happened to him before where it affects him in this way where he gets slurred speech and is unable to walk. She states that he ended up in the floor last night but did not fall. She was unable to get him up so put blankets underneath him and stayed with him overnight. When she was unable to get him up this morning, she called EMS. Related Data Home Medications ?Medication ?Instructions ?Recorded ?Confirmed semaglutide 0.25 mg or 0.5 mg (2 0.5 mg SQ WEEKLY 05/25/24 12/03/24 mg/3 mL) subcutaneous pen injector (Ozempic) amlodipine 10 mg tablet (Norvasc) 10 mg PO DAILY 12/03/24 12/03/24 aspirin 81 mg tablet,delayed 81 mg PO DAILY 12/03/24 12/03/24 release (Adult Low Dose Aspirin) atorvastatin 40 mg tablet (Lipitor) 40 mg PO DAILY 12/03/24 12/03/24 empagliflozin 10 mg tablet 10 mg PO DAILY 12/03/24 12/03/24 (Jardiance) fenofibrate 160 mg tablet 160 mg PO DAILY 12/03/24 12/03/24 glipizide 10 mg tablet, extended 10 mg PO BID 12/03/24 12/03/24 release 24 hr (Glucotrol XL) hydrochlorothiazide 25 mg tablet 25 mg PO DAILY 12/03/24 12/03/24 lorazepam 2 mg tablet (Ativan) 2 mg PO HS PRN 12/03/24 12/03/24 magnesium oxide 400 mg PO BID 12/03/24 12/03/24 metoprolol tartrate 100 mg tablet 100 mg PO DAILY 12/03/24 12/03/24 (Lopressor) olopatadine 0.1 % eye drops drp Eye-Both BID 12/03/24 12/03/24 pantoprazole 40 mg granules 40 mg PO DAILY 12/03/24 12/03/24 delayed-release for susp in packet (Protonix) pregabalin 150 mg capsule (Lyrica) 150 mg PO BID 12/03/24 12/03/24 sertraline 50 mg tablet (Zoloft) 50 mg PO DAILY 12/03/24 12/03/24 tizanidine 4 mg capsule (Zanaflex) 4 mg PO Q8H PRN 12/03/24 12/03/24 Previous Rx's ?Medication ?Instructions ?Recorded oxybutynin chloride 10 mg 10 mg PO DAILY 90 days #90 tabs 09/28/24 tablet,extended release 24 hr tamsulosin 0.4 mg capsule (Flomax) 0.4 mg PO DAILY 90 days #90 caps 09/28/24 Allergies Allergy/AdvReac Type Severity Reaction Status Date / Time triethanolamine (From AdvReac Mild Rash Verified 12/03/24 13:40 Cerumenex) [facility] Disclaimer: The information contained in this section may have been updated after the patient was seen, as this information can be updated by other users. Medical History (Updated 12/09/24 @ 10:51 by Akhil Ponce MD) Allergic rhinitis Smoking greater than 20 pack years EJ (obstructive sleep apnea) Depression Anxiety History of gastroesophageal reflux (GERD) Diabetes mellitus, type 2 Hyperlipidemia Hypertension Surgical History History of cholecystectomy History of cardiac cath Social History Smoking Status: Unknown if ever smoked alcohol intake: never current occupational status: retired Travel in the last 8 weeks?: None Have you lived/traveled outside US in past 30 days?: No Contact w/someone who lives/traveled outside US past 30 days?: No Exposure to someone with infectious disease in past 14 days?: No Do you have a fever (greater than 100.4 F or 38 C)?: No Have you tested positive for COVID-19?: No Exposed to someone with COVID-19 in past 14 days?: No Do you have a sore throat?: No Do you have a cough?: No Do you have any weakness?: No Do you have any diarrhea?: No Are you experiencing any unusual bleeding?: No Do you have any muscle aches/pain?: No Do you have any abdominal pain?: No Are you experiencing loss of taste or smell?: No Other Medical History Have you received the Pneumonia Vaccine: No ROS Obtained: Yes Systems reviewed as appropriate & no additional complaints except as documented Physical Exam General General appearance: in no apparent distress Comment: Somnolent but can maintain brief conversation Head Head exam: atraumatic Eye Eye exam: Present normal appearance ENT ENT exam: Present normal external ear exam Neck Neck exam: Present full ROM Chest Chest inspection: Present symmetric chest wall rise Respiratory Respiratory exam: Present normal lung sounds bilaterally; Absent respiratory distress, wheezes or stridor Cardiovascular Cardiovascular exam: Present regular rate and normal rhythm Abdominal Exam Abdominal exam: Present soft and scar (well-healed); Absent tenderness or guarding exam: Present deferred Extremities Exam Extremities exam: Present normal inspection Back Exam Back exam: Present normal inspection Neurological Exam Neurological exam: Present oriented X3 Expanded Neurological Exam Comment: Somnolent but can maintain a conversation. Slow to respond to questions. He is mildly confused and knows his name and that he is at a hospital but is otherwise not oriented. He has some slurring of his speech. Cranial nerves II through XII are grossly intact, however he seems to have some ptosis of the right eye and some mild drooping of the right mouth. Right upper extremity with some mild drift but does not touch the bed. He has a mild tremor in bilateral upper extremities. 5 out of 5 strength in lower extremities. Sensation grossly intact throughout all extremities. Mild slurring of speech but easily understandable. Initial NIH of 4 Psychiatric Psychiatric exam: Present normal affect Skin Skin exam: Present warm and dry Medical Decision Making Medical Records Screening: Per USPSTF and CDC recommendations, given the prevalence of disease in our region, it is our hospital?s policy to screen for HIV and viral Hepatitis for all patients aged 18 and over and those with ongoing risk factors. Roberto Inquiry Pt receiving controlled substance: No Vital Signs: 12/09/24 08:35 12/09/24 09:04 12/09/24 09:15 Temperature 98.2 F Temperature Source Oral Pulse Rate 85 74 Pulse Rate [Left Radial] 85 Respiratory Rate 11 L 12 10 L Blood Pressure 97/57 L 82/55 L Blood Pressure [Right Arm] 117/77 Blood Pressure Mean 63 Blood Pressure Mean [Right Arm] 90 02 Sat by Pulse Oximetry 94 L 95 94 L Oxygen Delivery Method Room Air 12/09/24 09:22 12/09/24 09:24 12/09/24 09:30 Temperature Temperature Source Pulse Rate 79 80 80 Pulse Rate [Left Radial] Respiratory Rate 9 L 10 L 10 L Blood Pressure 83/53 L 83/53 L 99/55 L Blood Pressure [Right Arm] Blood Pressure Mean 64 64 63 Blood Pressure Mean [Right Arm] 02 Sat by Pulse Oximetry 94 L 93 L 93 L Oxygen Delivery Method 12/09/24 09:45 12/09/24 10:00 Temperature Temperature Source Pulse Rate 73 79 Pulse Rate [Left Radial] Respiratory Rate 9 L 11 L Blood Pressure 96/54 L 97/66 L Blood Pressure [Right Arm] Blood Pressure Mean 67 76 Blood Pressure Mean [Right Arm] 02 Sat by Pulse Oximetry 95 94 L Oxygen Delivery Method Lab Data Lab Results 12/09/24 08:20: WBC 12.1 H, RBC 5.11, Hgb 15.8, Hct 46.7, MCV 91.4, MCH 30.9, MCHC 33.8, RDW 13.6, Plt Count 187, MPV 11.5 H, Neut % (Auto) 51.7, Lymph % (Auto) 33.8, [place] % (Auto) 11.8 H, Eos % (Auto) 1.7, Baso % (Auto) 0.6, Neut # (Auto) 6.2, Lymph # (Auto) 4.1, [place] # (Auto) 1.4 H, Eos # (Auto) 0.2, Baso # (Auto) 0.1, PT 11.5, INR 1.04, APTT 24.3, Sodium 139, Potassium 4.2, Chloride 101, Carbon Dioxide 28, Anion Gap 14.2, BUN 23 H, Creatinine 1.50 H, Estimated GFR 46 L, Est GFR ( Amer) 55 L, Glucose 110 H, Calcium 8.9, Total Bilirubin 0.6, AST 38, ALT 20, Alkaline Phosphatase 60, Total Creatine Kinase 106, Troponin I 0.04 H, Total Protein 7.2, Albumin 4.1, Globulin 3.1, Albumin/Globulin Ratio 1.3, Triglycerides 280 H, Cholesterol 147, LDL Cholesterol Direct 85.04 L, VLDL Cholesterol 56 H, HDL Cholesterol 30 L, Cholesterol/HDL Ratio 4.9 H, Plasma/Serum Alcohol < 10 12/09/24 09:00: VBG pH 7.36, VBG pCO2 43.8, VBG pO2 94.0 H, VBG HCO3 24.2, VBG Total CO2 25.5, VBG O2 Saturation 96.6 H, VBG Base Excess -1.3, VBG Lactic Acid 1.4 12/09/24 09:04: Ammonia 13 12/09/24 08:20 12/09/24 08:20 Orders (Tests/Meds): ED MEDICATIONS Generic Name Dose Route Start Last Admin Trade Name Freq PRN Reason Stop Dose Admin Sodium Chloride 10 ml 12/09/24 08:35 Sodium Chloride 0.9% 10ml Flush Syringe IV 01/08/25 08:34 NEEDED PRN Maintain IV Site Discontinued Medications Generic Name Dose Route Start Last Admin Trade Name Freq PRN Reason Stop Dose Admin Lactated Ringer's 1,000 mls @ 999 mls/hr 12/09/24 08:37 12/09/24 10:35 Lactated Ringer's 1000 Ml Bag IV 12/09/24 09:37 Infused .Q1H1M ONE Infusion Iopamidol 80 ml 12/09/24 08:49 12/09/24 08:51 Iopamidol-370 (76%);100ml Bottle IV 12/09/24 08:50 80 ml ONCE ONE Administration Sodium Chloride 50 ml 12/09/24 08:49 12/09/24 08:51 0.9 % Sodium Chloride 50 Ml Vial IV 12/09/24 08:50 50 ml ONCE ONE Administration Sodium Chloride 10 ml 12/09/24 08:49 12/09/24 08:51 Sodium Chloride 0.9% 10ml Syr (Rad Only) IV 12/09/24 08:50 10 ml ONCE ONE Administration ORDERS Category Date Time Status CT angio head Stat Cat Scan 12/09/24 08:[address] angio neck Stat Cat Scan 12/09/24 08:[address] head/brain wo con Stat Cat Scan 12/09/24 08:35 Completed XR chest portable Stat Exams 12/09/24 08:35 Completed Activated Partial Thrombo Time Stat Lab 12/09/24 08:20 Completed Ammonia Stat Lab 12/09/24 09:04 Completed CK [Creatine Kinase] Stat Lab 12/09/24 08:20 Completed Complete Blood Count Auto Diff Stat Lab 12/09/24 08:20 Completed Comprehensive Metabolic Panel Stat Lab 12/09/24 08:20 Completed Drug Screen,Urine Stat Lab 12/09/24 08:35 Ordered Ethyl Alcohol Stat Lab 12/09/24 08:20 Completed Lipid Panel Stat Lab 12/09/24 08:20 Completed Prothrombin Time INR Stat Lab 12/09/24 08:20 Completed Troponin I Q3H Lab 12/09/24 11:45 Ordered Troponin I Q3H Lab 12/09/24 14:45 Ordered Troponin I Stat Lab 12/09/24 08:20 Completed Urinalysis and Microscopic Stat Lab 12/09/24 08:35 Ordered VBG [Venous Blood Gas] Stat RT 12/09/24 09:00 Completed ECG Data Tracing #1: I reviewed this ECG and interpreted as documented below: NSR. Ventricular rate of 80 bpm. QTc normal at 406. MA interval normal at 167. No ST elevation or depression. No T wave inversions Medical Decision Narrative: Anthony Jacob is a 74y male with a history of diabetes, GERD, anxiety, depression, hypertension, hyperlipidemia, cholecystectomy who presents to the emergency department via EMS for slurred speech and being found down on the floor. Per EMS, at some point overnight, patient was noted to be in the floor. Per patient, this happened at approximately 4-4 30 this morning. EMS was initially called out for lift assist, however they state that he was unsteady on his feet. They also noted that he was slow to respond to questions and sometimes slurring his words. Stroke scale was negative en route with EMS. I did discuss with patient's sister, whom he lives with, Arabella Davalos, the events that led up to this. She states that he had gotten a hold of a medication that is not prescribed to him called [facility] and took this last night. She states that this has happened to him before where it affects him in this way where he gets slurred speech and is unable to walk. She states that he ended up in the floor last night but did not fall. She was unable to get him up so put blankets underneath him and stayed with him overnight. When she was unable to get him up this morning, she called EMS. Critical Care Critical Care Time Critical Care Time: Yes Attestation: On 12/09/24, the high probability of a clinically significant, sudden or life threatening deterioration of the following system(s) required my full and direct attention, intervention and personal management. The time I documented below is in addition to time spent performing reported procedures but includes the following listed in this critical care notation. Total Time Total Critical Care Time: 35
[2024-12-09 08:40] LABS: Hematocrit 46.7 % (42.0-52.0); Hemoglobin 15.8 g/dL (14.1-18.0); Immature Granulocytes % 0.4 %; Mean Corpuscular HGB Conc 33.8 g/dL (31.8-35.4); Mean Corpuscular Hemoglobin 30.9 pg (27.0-31.2); Mean Corpuscular Volume 91.4 fl (80-94); Nucleated Red Blood Cells % 0 %; Platelet Count 187 K/mm3 (142-424); Red Blood Count 5.11 M/mm3 (4.60-6.20); Red Cell Distribution Width-SD 46.1 fL; White Blood Count 12.1 K/mm3 (4.8-10.8)
[2024-12-09 08:45] LABS: Albumin Level 4.1 g/dl (3.5-5.0); Chloride 101 mmol/L (98-107); Potassium 4.2 mmoL/L (3.5-5.1); Sodium 139 mmol/L (136-145)
[2024-12-09 08:48] LABS: Alanine Aminotransferase 20 U/L (12-78); Albumin/Globulin Ratio 1.3 (1.1-1.8); Alkaline Phosphatase 60 U/L (38-126); Anion Gap 14.2 mEq/L (5-15); Aspartate Amino Transferase 38 U/L (17-59); Bilirubin,Total 0.6 mg/dl (0.2-1.3); Blood Urea Nitrogen 23 mg/dl (9-20); Carbon Dioxide 28 mmol/L (22.0-30.0); Cholesterol 147 mg/dl (140-200); Creatine Kinase 106 U/L (55-170); Creatinine,Serum 1.50 mg/dl (0.66-1.25); Estimated Glomerular Filt Rate 46 ml/min (>60); GFR (African American) 55 ML/MIN (>60); Globulin 3.1 g/dL (1.3-3.2); Total Protein,Serum 7.2 g/dl (6.3-8.2); Triglycerides 280 mg/dl (30-150)
[2024-12-09 08:49] LABS: Calcium 8.9 mg/dl (8.4-10.2); Glucose 110 mg/dl (74-100); HDL Cholesterol 30 mg/dl (40-60)
[2024-12-09 08:51] LABS: Activated Partial Thrombo Time 24.3 seconds (22.8-30.6); INR 1.04 (0.9-1.1); Prothrombin Time 11.5 seconds (10.1-12.5)
[2024-12-09] MEDS: 0.9 % SODIUM CHLORIDE 50 ML VIAL IV (08:51)
[2024-12-09] MEDS: SODIUM CHLORIDE 0.9% 10ML SYR (RAD ONLY) 10 ML IV (08:51)
[2024-12-09] MEDS: IOPAMIDOL-370 (76%);100ML BOTTLE 80 ML IV (08:51)
[2024-12-09 09:03] LABS: Troponin I 0.04 ng/ml (0.00-0.034)
[2024-12-09] MEDS: LACTATED RINGERS 1000ML 1,000 ML 999 ML IV (09:10)
[2024-12-09 09:14] LABS: Lactate Venous 1.4 mmol/L (0.4-2.0); VBG HCO3 24.2 mmol/L (23-30); VBG PCO2 43.8 mmol/L (35-51); VBG PH 7.36 mmol/L (7.31-7.41); VBG PO2 94.0 mmol/L (28-40)
[2024-12-09 09:21] LABS: Ammonia 13 umol/L (9-30)
--- NOTE | 2024-12-09 09:46 | PC.NURSE ---
PEARL MAKER called poison control per ER md and they advised that there is nothing to do except supportive care for the patient who took medication by name of SOMA. 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
--- NOTE | 2024-12-09 11:02 | PC.NURSE ---
attempted to call report to 2nd floor rn
--- NOTE | 2024-12-09 11:21 | EXP.HP ---
History of Present Illness *Admission Date: 12/09/24 *Reason for visit:: Fall, confusion *History of present illness: Anthony Jacob is a 74-year-old male with a medical history significant for type 2 diabetes with peripheral neuropathy, hypertension, GERD, BPH who presents from home after noticed patient on bedroom floor and globally weak. Patient was initially somnolent, globally weak, encephalopathic and unable to provide an interview. Mentation significantly improved into the afternoon during which patient was alert and oriented x 3 but still slurring words, somewhat globally weak. Patient states he has peripheral neuropathy and sometimes takes carisoprodol to help relax and sleep. Last night, he states he took 3 pills. Per nursing report, states this is not his prescription but sometimes gets to it and takes multiple pills to help him sleep. Patient has apparently done this prior with similar presentation. Patient denies chest pain, shortness of breath, fever/chills, abdominal pain, diarrhea/constipation. Workup in the ED significant for WBC 12.1, UA and UDS unremarkable. CT head, CT head and neck, CXR did not show acute findings. Poison control was consulted by the ED who recommended close monitoring and following up on Tylenol, salicylate acid levels which were normal. Given this presentation, ED provider discussed case with manage decided to admit patient for acute toxic metabolic encephalopathy secondary to accidental drug overdose. [facility] Disclaimer: The information contained in this section may have been updated after the patient was seen, as this information can be updated by other users. Medical History (Updated 12/09/24 @ 18:16 by Jun Singh MD) Allergic rhinitis Smoking greater than 20 pack years EJ (obstructive sleep apnea) Depression Anxiety History of gastroesophageal reflux (GERD) Diabetes mellitus, type 2 Hyperlipidemia Hypertension Surgical History History of cholecystectomy History of cardiac cath Family History (Updated 12/09/24 @ 12:47 by Naheed Cervantes RN) Other Family history of hyperlipidemia Family history of hypertension Social History (Updated 12/09/24 @ 12:50 by Naheed Cervantes, DURGA) Smoking Status: Never smoker alcohol intake: never current occupational status: retired Travel in the last 8 weeks?: None Have you lived/traveled outside [place] in past 30 days?: No Contact w/someone who lives/traveled outside US past 30 days?: No Exposure to someone with infectious disease in past 14 days?: No Do you have a fever (greater than 100.4 F or 38 C)?: No Have you tested positive for COVID-19?: No Exposed to someone with COVID-19 in past 14 days?: No Do you have a sore throat?: No Do you have a cough?: No Do you have any weakness?: No Do you have any diarrhea?: No Are you experiencing any unusual bleeding?: No Do you have any muscle aches/pain?: No Do you have any abdominal pain?: No Are you experiencing loss of taste or smell?: No Other Medical History Have you received the Pneumonia Vaccine: No Meds Home Medications and Allergies Home Medications ?Medication ?Instructions ?Recorded ?Confirmed ?Type semaglutide 0.25 mg or 0.5 mg (2 0.5 mg SQ WEEKLY 05/25/24 12/03/24 History mg/3 mL) subcutaneous pen injector (Ozempic) oxybutynin chloride 10 mg 10 mg PO DAILY 90 days #90 tabs 09/28/24 12/09/24 Rx tablet,extended release 24 hr tamsulosin 0.4 mg capsule (Flomax) 0.4 mg PO DAILY 90 days #90 caps 09/28/24 12/03/24 Rx amlodipine 10 mg tablet (Norvasc) 10 mg PO DAILY 12/03/24 12/03/24 History aspirin 81 mg tablet,delayed 81 mg PO DAILY 12/03/24 12/03/24 History release (Adult Low Dose Aspirin) atorvastatin 40 mg tablet (Lipitor) 40 mg PO DAILY 12/03/24 12/03/24 History empagliflozin 10 mg tablet 10 mg PO DAILY 12/03/24 12/03/24 History (Jardiance) fenofibrate 160 mg tablet 160 mg PO DAILY 12/03/24 12/03/24 History glipizide 10 mg tablet, extended 10 mg PO BID 12/03/24 12/03/24 History release 24 hr (Glucotrol XL) hydrochlorothiazide 25 mg tablet 25 mg PO DAILY 12/03/24 12/03/24 History lorazepam 2 mg tablet (Ativan) 2 mg PO HS PRN 12/03/24 12/03/24 History magnesium oxide 400 mg PO BID 12/03/24 12/03/24 History metoprolol tartrate 100 mg tablet 100 mg PO DAILY 12/03/24 12/03/24 History (Lopressor) olopatadine 0.1 % eye drops 1 drp Eye-Both BID 12/03/24 12/09/24 History pantoprazole 40 mg granules 40 mg PO DAILY 12/03/24 12/03/24 History delayed-release for susp in packet (Protonix) pregabalin 150 mg capsule (Lyrica) 150 mg PO BID 12/03/24 12/03/24 History sertraline 50 mg tablet (Zoloft) 50 mg PO DAILY 12/03/24 12/03/24 History tizanidine 4 mg capsule (Zanaflex) 4 mg PO Q8H PRN 12/03/24 12/03/24 History New Prescriptions to Start Prescriptions: Allergies Allergy/AdvReac Type Severity Reaction Status Date / Time triethanolamine (From AdvReac Mild Rash Verified 12/03/24 13:40 Cerumenex) Exam Data for Last 24 hours Vital signs and Labs for Last 24 Hours: Temp Pulse Resp BP Pulse Ox O2 Del Method 98.2 F 79 11 L 97/66 L 94 L Room Air 12/09/24 08:35 12/09/24 10:00 12/09/24 10:00 12/09/24 10:00 12/09/24 10:00 12/09/24 08:35 Laboratory Results - last 24 hr 12/09/24 08:20: WBC 12.1 H, RBC 5.11, Hgb 15.8, Hct 46.7, MCV 91.4, MCH 30.9, MCHC 33.8, RDW 13.6, Plt Count 187, MPV 11.5 H, Neut % (Auto) 51.7, Lymph % (Auto) 33.8, Armstrong % (Auto) 11.8 H, Eos % (Auto) 1.7, Baso % (Auto) 0.6, Neut # (Auto) 6.2, Lymph # (Auto) 4.1, Armstrong # (Auto) 1.4 H, Eos # (Auto) 0.2, Baso # (Auto) 0.1, PT 11.5, INR 1.04, APTT 24.3, Sodium 139, Potassium 4.2, Chloride 101, Carbon Dioxide 28, Anion Gap 14.2, BUN 23 H, Creatinine 1.50 H, Estimated GFR 46 L, Est GFR ( Amer) 55 L, Glucose 110 H, Calcium 8.9, Total Bilirubin 0.6, AST 38, ALT 20, Alkaline Phosphatase 60, Total Creatine Kinase 106, Troponin I 0.04 H, Total Protein 7.2, Albumin 4.1, Globulin 3.1, Albumin/Globulin Ratio 1.3, Triglycerides 280 H, Cholesterol 147, LDL Cholesterol Direct 85.04 L, VLDL Cholesterol 56 H, HDL Cholesterol 30 L, Cholesterol/HDL Ratio 4.9 H, Plasma/Serum Alcohol < 10 12/09/24 09:00: VBG pH 7.36, VBG pCO2 43.8, VBG pO2 94.0 H, VBG HCO3 24.2, VBG Total CO2 25.5, VBG O2 Saturation 96.6 H, VBG Base Excess -1.3, VBG Lactic Acid 1.4 12/09/24 09:04: Ammonia 13 I & O for Last 24 hours: Intake & Output 12/06/24 12/07/24 12/08/24 12/09/24 23:59 23:59 23:59 23:59 Intake Total 1000 / 1000 Balance 1000 / 1000 Weight 136.078 kg Constitutional Constitutional: no acute distress Comments: Somnolent, slurred speech *Routine HEENT Exam Head: Present normocephalic Eye: Present EOMI and PERRL ENT: Present mucous membranes moist *Routine Neck Exam Neck: Present supple; Absent lymphadenopathy *Routine Respiratory Exam Respiratory: Present CTA bilaterally *Routine Cardiovascular Exam Cardiovascular: Present RRR *Routine Abdominal Exam Abdominal: Present soft and normoactive bowel sounds; Absent tenderness *Routine Rectal Exam Rectal:: deferred *Routine Genitalia Exam Genitalia:: deferred *Routine Extremities Exam Extremities: Absent cyanosis, clubbing or edema *Routine Skin Exam Skin: Present warm; Absent rash *Routine Neurological Exam Neurological: Present alert and oriented X3 Assessment and Plan *Assessment and plan (1) Accidental drug overdose: Status: Acute Category: Medical Code(s): T50.901A - Poisoning by unspecified drugs, medicaments and biological substances, accidental (unintentional), initial encounter Plan Anthony Jacob is a 74-year-old male with a medical history significant for type 2 diabetes with peripheral neuropathy, hypertension, GERD, BPH who presents from home after noticed patient on bedroom floor and globally weak. Patient was initially somnolent, globally weak, encephalopathic and unable to provide an interview. Mentation significantly improved into the afternoon during which patient was alert and oriented x 3 but still slurring words, somewhat globally weak. Patient states he has peripheral neuropathy and sometimes takes carisoprodol to help relax and sleep. Last night, he states he took 3 pills. Per nursing report, states this is not his prescription but sometimes gets to it and takes multiple pills to help him sleep. Patient has apparently done this prior with similar presentation. Patient denies chest pain, shortness of breath, fever/chills, abdominal pain, diarrhea/constipation. Workup in the ED significant for WBC 12.1, UA and UDS unremarkable. CT head, CT head and neck, CXR did not show acute findings. Poison control was consulted by the ED who recommended close monitoring and following up on Tylenol, salicylate acid levels which were normal. Given this presentation, ED provider discussed case with manage decided to admit patient for acute toxic metabolic encephalopathy secondary to accidental drug overdose. #Acute toxic metabolic encephalopathy #Accidental drug overdose #Medication side effect ? Patient presents with global weakness, slowed speech, somnolence after reportedly taking 3 pills of carisoprodol to help sleep. Patient does not take this every day. ? Broad workup including CT head, CTA head/neck, CXR, UA, UDS, Tylenol, salicylate levels are unremarkable for acute findings. ? As such, presentation is most likely related to accidental drug overdose with carisoprodol. states patient has done this before with similar presentation. ? Received 1 L LR bolus in the ED. Will continue with LR at 75 mL/h hour to help washout drug overdose. ? Hold home sedatives, SSRIs for now. ? Follow-up morning CBC, CMP. #Type 2 diabetes #Peripheral neuropathy ? Follow-up hemoglobin A1c ? LDSSI, ACHS glucose checks. ? Will consider gabapentin for neuropathy on discharge, hold for now due to encephalopathy. ? Follow-up iron panel to rule out restless leg syndrome. #CKD stage III A ? Creatinine 1.5, GFR 46. Stable. ? Renally dose and minimize nephrotoxic medications. #Hypertension ? Continue home medications once reconciled and appropriate. #GERD ? Continue home PPI. #BPH ? Continue home medications once reconciled. Full code DVT prophylaxis: Lovenox 40 mg
--- NOTE | 2024-12-09 11:40 | PC.NURSE ---
arrived by stretcher from ED
[2024-12-09 12:51] LABS: Troponin I 0.03 ng/ml (0.00-0.034)
--- NOTE | 2024-12-09 12:57 | PC.NURSE ---
Pt is poor historian. Unable to obtain home medications from pt. Unable to reach familt.
[2024-12-09 13:23] LABS: Acetaminophen < 10 ug/ml (10-30); Salicylate < 1.0 mg/dL (2.0-20.0)
--- NOTE | 2024-12-09 13:58 | HMH.OTEV ---
OT Evaluation Rehab OT IP Evaluation Start: 12/09/24 12:52 Freq: ONCE Status: Active Protocol: Document 12/09/24 13:51 [facility] (Rec: 12/09/24 13:58 [facility] [id number]) Rehab OT IP Assessment Subjective History Pt oriented x 2 on arrival. Pt agreeable to engage in therapy evaluation. Pt admitted on 12/09/24 due to AMS . History and physical: Anthony Jacob is a 74y male with a history of diabetes, GERD, anxiety, depression, hypertension, hyperlipidemia , cholecystectomy who presents to the emergency department via EMS for slurred speech and being found down on the floor. Per EMS, at some point overnight, patient was noted to be in the floor. Per patient, this happened at approximately 4-4 30 this morning. EMS was initially called out for lift assist, however they state that he was unsteady on his feet. They also noted that he was slow to respond to questions and sometimes slurring his words. Stroke scale was negative en route with EMS. I did discuss with patient's sister, whom he lives with , Arabella Davalos, the events that led up to this. She states that he had gotten a hold of a medication that is not prescribed to him called [facility] and took this last night. She states that this has happened to him before where it affects him in this way where he gets slurred speech and is unable to walk. She states that he ended up in the floor last night but did not fall. She was unable to get him up so put blankets underneath him and stayed with him overnight. When she was unable to get him up this morning, she called EMS. Subjective Pt continues to have slurred speech and delayed processing/sequencing of tasks. Prior to being in the hospital, pt lived at home with his sister. Pt claims normally he is completely independent with all ADLs and IADLs. He also still drives. He does not require any type of AE during functional transfers. Pt also appears to be off balance while standing with a posterior lean and swaying requiring min/mod assist x 2 . He was able to sit at eob with good static sitting balance and sba, but unable to complete lower body dressing by donning socks. When he would attempt dynamic sitting balance he required mod assist to maintain sitting balance. Objective Patient Orientation Person,Birthday Right Upper WFL Extremity Gross ROM Left Upper Extremity WFL Gross ROM Bed Mobility bed mobility-scooting,bed mobility - supine/sit Assist Level Minimal x 1 (25% assist) Transfer Training Sit/Stand/Step Transfer Assist Level Moderate x 2 (50% assist) Lower Body Dressing Maximum Assistance Ability Rehab OT IP prob,goals,plan Problems Date of Evaluation: 12/09/24 OT IP Problems Bed Mobility,Transfers,Balance,Self care,Safety Rehab Potential Rehab Potential Good Equipment Needs Assistive Devices Rolling / Wheeled Walker Plan OT intervention Plan Bed Mobility,Transfers,Balance,Self care,Safety, Therapeutic Exercise OT Plan Frequency Daily Duration LOS Discharge Goals Bed Mobility Ability Assistance x1 Sit to Stand Chair Minimal x 1 (25% assist) Transfer Ability Chair Transfer Minimal x 1 (25% assist) Ability Chair Transfer Sit to/from Ambulatory Technique Chair Transfer Rolling Walker Assistive Devices Lower Body Dressing Minimal Assistance Ability Upper Body Dressing Standby Assistance Ability Performing Toilet Minimal Assistance Hygiene Ability Overall Commode/ Minimal Assistance Toilet Transfer Ability Commode/Toilet Sit to/from Ambulatory Transfer Technique Discharge Plan OT Discharge Plan Pt will continue to be seen for OT services while at [facility]. At this time, pt presents below baseline with functional transfers and ADL independence. If he does not improve functionally during hospital stay, therapist recommends short term rehab. However, if he demonstrates great improvement while here he could return home with his sisters assistance as needed. Eval Complexity Eval Charge Codes 98660 - Moderate Complexity PHYSICIAN CERTIFICATION: I certify the specified therapy services for Anthony Jacob are required, authorized, and reviewed every 30 days.
[2024-12-09 14:02] LABS: Microscopic, Urine URINE MICROSCOPIC (MICROSCOPIC)
[2024-12-09 14:11] LABS: Bilirubin,Urine Negative (Negative); Color,Urine YELLOW (Yellow); Glucose,Urine (UA) 3+ (Negative); Ketones,Urine Negative (Negative); Leukocyte Esterase,Urine Negative (Negative); PH,Urine 5.5 (5.0-8.5); Protein,Urine Negative (Negative); Specific Gravity, Urine 1.010 (1.005-1.030); Urobilinogen,Urine 0.2 EU/dl (0.2)
[2024-12-09 14:33] LABS: Amphetamine/Metha Screen,Urine Negative ng/ml (<1000)
[2024-12-09 14:34] LABS: Bacteria,Urine Trace /lpf; Barbiturates Screen,Urine Negative ng/ml (<200); Benzodiazepines Screen,Urine Negative ng/ml (<200); RBC,Urine Occasional #/hpf (0-3); WBC,Urine Occasional #/hpf (0-3)
[2024-12-09 14:36] LABS: Methadone Screen,Urine Negative ng/ml (<300)
[2024-12-09 14:37] LABS: Opiate Screen,Urine Negative ng/ml (<300); Phencyclidine Screen,Urine Negative ng/ml (<25)
[2024-12-09 15:14] LABS: Troponin I 0.03 ng/ml (0.00-0.034)
--- NOTE | 2024-12-09 17:32 | PC.NURSE ---
PT HAS BECOME MORE INTERACTIVE TOWARD THEN END OF SHIFT. SPEECH IS STILL GARBLED AND DIFFICULT TO UNDERSTAND BUT ABLE TO ANSWER SOME QUESTIONS APPROPRIATELY. SLEPT FOR THE FIRST FEW HOURS AFTER ARRIVAL TO THE FLOOR. TOLERATING ROOM AIR.
[2024-12-09] MEDS: LACTATED RINGERS 1000ML 1,000 ML 75 ML IV (18:23)
[2024-12-09] MEDS: ACETAMINOPHEN 325MG TAB 650 MG PO (23:52)
[2024-12-10] VITALS: BP 134/66; PULSE 94; RESP 17; TEMP 36.7; O2SAT 93
[2024-12-10 04:00] VITALS: BP 123/69; PULSE 84; RESP 17; TEMP 36.7; O2SAT 94; BMI 39.4
[2024-12-10 06:16] LABS: Hematocrit 46.4 % (42.0-52.0); Hemoglobin 15.5 g/dL (14.1-18.0); Immature Granulocytes % 0.2 %; Mean Corpuscular HGB Conc 33.4 g/dL (31.8-35.4); Mean Corpuscular Hemoglobin 30.6 pg (27.0-31.2); Mean Corpuscular Volume 91.7 fl (80-94); Nucleated Red Blood Cells % 0 %; Platelet Count 172 K/mm3 (142-424); Red Blood Count 5.06 M/mm3 (4.60-6.20); Red Cell Distribution Width-SD 46.5 fL; White Blood Count 9.3 K/mm3 (4.8-10.8)
[2024-12-10 06:34] LABS: Albumin Level 3.8 g/dl (3.5-5.0); Chloride 102 mmol/L (98-107); Potassium 3.9 mmoL/L (3.5-5.1); Sodium 139 mmol/L (136-145)
[2024-12-10 06:36] LABS: Blood Urea Nitrogen 17 mg/dl (9-20); Creatinine Clearance Estimated 82 mL/min (50-200); Creatinine,Serum 1.40 mg/dl (0.66-1.25); Estimated Glomerular Filt Rate 50 ml/min (>60); GFR (African American) 60 ML/MIN (>60)
[2024-12-10 06:37] LABS: Alanine Aminotransferase 18 U/L (12-78); Albumin/Globulin Ratio 1.3 (1.1-1.8); Alkaline Phosphatase 54 U/L (38-126); Anion Gap 11.9 mEq/L (5-15); Aspartate Amino Transferase 31 U/L (17-59); Bilirubin,Total 0.4 mg/dl (0.2-1.3); Calcium 8.5 mg/dl (8.4-10.2); Carbon Dioxide 29 mmol/L (22.0-30.0); Globulin 2.9 g/dL (1.3-3.2); Glucose 77 mg/dl (74-100); Magnesium 1.6 mg/dl (1.6-2.3); Total Protein,Serum 6.7 g/dl (6.3-8.2)
[2024-12-10 06:45] LABS: Iron 75 ug/dL (49-181)
[2024-12-10 06:54] LABS: Total Iron Binding Capacity 416 ug/dL (261-462)
[2024-12-10 07:02] LABS: Thyroid Stimulating Hormone 1.97 uIU/mL (0.465-4.68)
[2024-12-10 07:20] LABS: Ferritin 48.2 ng/ml (17.9-464)
[2024-12-10 07:34] LABS: Vitamin B12 485 pg/mL (239-931)
[2024-12-10] MEDS: LACTATED RINGERS 1000ML 1,000 ML 75 ML IV (07:41)
[2024-12-10] MEDS: MAGNESIUM SULFATE IN WATER 2 GM/50 ML PIGGYBACK IV ×2 (07:41→08:52)
[2024-12-10 08:00] VITALS: BP 150/90; PULSE 85; RESP 16; TEMP 36.6; O2SAT 96
[2024-12-10 08:03] LABS: Hemoglobin A1C 8.3 % (4.0-6.0)
--- NOTE | 2024-12-10 09:30 | HMH.PTEV ---
Physical Therapy Evaluation Rehab PT IP Evaluation Start: 12/09/24 12:52 Freq: ONCE Status: Active Protocol: Document 12/10/24 09:25 [facility] (Rec: 12/10/24 09:28 [facility] [id number]) Subjective/History History History Per H&P: Anthony Jacob is a 74-year-old male with a medical history significant for type 2 diabetes with peripheral neuropathy, hypertension, GERD, BPH who presents from home after noticed patient on bedroom floor and globally weak. Patient was initially somnolent, globally weak, encephalopathic and unable to provide an interview. Mentation significantly improved into the afternoon during which patient was alert and oriented x 3 but still slurring words, somewhat globally weak. Patient states he has peripheral neuropathy and sometimes takes carisoprodol to help relax and sleep. Last night, he states he took 3 pills. Per nursing report, states this is not his prescription but sometimes gets to it and takes multiple pills to help him sleep. Patient has apparently done this prior with similar presentation. Patient denies chest pain, shortness of breath, fever/ chills, abdominal pain, diarrhea/constipation. Workup in the ED significant for WBC 12.1, UA and UDS unremarkable. CT head, CT head and neck, CXR did not show acute findings. Poison control was consulted by the ED who recommended close monitoring and following up on Tylenol, salicylate acid levels which were normal . Given this presentation, ED provider discussed case with manage decided to admit patient for acute toxic metabolic encephalopathy secondary to accidental drug overdose. Subjective Subjective Pt reports he lives with his sister and is normally IND with all mobility. Pt still drives. New diagnosis of No cancer in past 12 months? [facility] How much help from another person do you currently need... Turning from your None back to your side while in a flat bed without using bedrails? Moving from lying on None back to sitting on the side of a flat bed without using bedrails? Moving to and from a None bed to a chair ( including a wheelchair)? Standing up from a None chair using your arms? (e.g., wheelchair, bedside chair) Walking in hospital None room? Climbing 3-5 steps A little with a railing? Mobility Score 23 Mobility Level [facility] Mobility Walk 25 feet or more Mobility Calculator Rehab PT IP Eval Objective Appearance Patient Behavior Appropriate,Cooperative Patient Orientation Person,Situation Difficulty following none instructions Speech Pattern Clear Ambulation Patient Able to Yes Ambulate Ambulation Observation IP General Gait Wide Based Gait Pattern Observation Ambulation Distance 50 (feet) Ambulation Assistive Rolling Walker Device Ambulation Ability Supervision/Stand by Balance Ability to Arise Able, uses arms to help Sitting Balance Steady, safe Standing Balance Steady, wide stance Dynamic Sitting Good Balance Ability Dynamic Standing Good Balance Ability Transfers Bed Transfer Ability Supervision/Stand by Sit to Stand Bed Supervision/Stand by Transfer Ability Rehab PT IP prob,goals,plan Problems Date of Evaluation: 12/10/24 Rehab Potential Rehab Potential Innapropriate for Skilled Therapy Discharge Plan PT Discharge Plan Pt appears to be back to his baseline with functional mobility. Pt demo'd good static and dynamic standing balance. Pt able to ambulate household distance with good safety awareness and without LOB. Pt would not benefit from skilled acute care PT at this time d/t mobility being at baseline. PT recommending OP PT to address strength and endurance . Eval Complexity Eval Charge Codes 41026 - Moderate Complexity PHYSICIAN CERTIFICATION: I certify the specified therapy services for Anthony Jacob are required, authorized, and reviewed every 30 days.
--- NOTE | 2024-12-10 11:18 | SW/DCPLANNER ---
PT/OT recommended outpatient PT services. Patient is agreeable to services and will have transportation. I have updated [employer] and MD. Patient will discharge home today.
--- NOTE | 2024-12-10 11:29 | EXP.DC.SUM ---
General Admission date:: 12/09/24 HPI HPI HPI: Anthony Jacob is a 74-year-old male with a medical history significant for type 2 diabetes with peripheral neuropathy, hypertension, GERD, BPH who presents from home after noticed patient on bedroom floor and globally weak. Patient was initially somnolent, globally weak, encephalopathic and unable to provide an interview. Mentation significantly improved into the afternoon during which patient was alert and oriented x 3 but still slurring words, somewhat globally weak. Patient states he has peripheral neuropathy and sometimes takes carisoprodol to help relax and sleep. Last night, he states he took 3 pills. Per nursing report, states this is not his prescription but sometimes gets to it and takes multiple pills to help him sleep. Patient has apparently done this prior with similar presentation. Patient denies chest pain, shortness of breath, fever/chills, abdominal pain, diarrhea/constipation. Workup in the ED significant for WBC 12.1, UA and UDS unremarkable. CT head, CT head and neck, CXR did not show acute findings. Poison control was consulted by the ED who recommended close monitoring and following up on Tylenol, salicylate acid levels which were normal. Given this presentation, ED provider discussed case with manage decided to admit patient for acute toxic metabolic encephalopathy secondary to accidental drug overdose. Hospital Course Hospital Course Hospital Course: Anthony Jacob is a 74-year-old male with a medical history significant for type 2 diabetes with peripheral neuropathy, hypertension, GERD, BPH who presents from home after noticed patient on bedroom floor and globally weak. Patient was initially somnolent, globally weak, encephalopathic and unable to provide an interview. Mentation significantly improved into the afternoon during which patient was alert and oriented x 3 but still slurring words, somewhat globally weak. Patient states he has peripheral neuropathy and sometimes takes carisoprodol to help relax and sleep. Last night, he states he took 3 pills. Per nursing report, states this is not his prescription but sometimes gets to it and takes multiple pills to help him sleep. Patient has apparently done this prior with similar presentation. Patient denies chest pain, shortness of breath, fever/chills, abdominal pain, diarrhea/constipation. Workup in the ED significant for WBC 12.1, UA and UDS unremarkable. CT head, CT head and neck, CXR did not show acute findings. Poison control was consulted by the ED who recommended close monitoring and following up on Tylenol, salicylate acid levels which were normal. Given this presentation, ED provider discussed case with manage decided to admit patient for acute toxic metabolic encephalopathy secondary to accidental drug overdose. #Acute toxic metabolic encephalopathy #Accidental drug overdose #Medication side effect ? Patient presented with global weakness, slowed speech, somnolence after reportedly taking 3 pills of carisoprodol to help sleep, reported peripheral neuropathy. Patient does not take this every day. ? Broad workup including CT head, CTA head/neck, CXR, UA, UDS, Tylenol, salicylate levels are unremarkable for acute findings. ? As such, presentation is most likely related to accidental drug overdose with carisoprodol. states patient has done this before with similar presentation. ? Clinically improved by holding home sedatives overnight, patient is back to baseline today. Alert and oriented x 4. ? Strongly advised patient to not take carisoprodol or tizanidine due to risk of adverse effects. Started Requip for possible restless leg syndrome. ? Follow-up with PCP within 1 week. #Suspected restless leg syndrome ? Patient states tingling and restless legs keeping her up at night, which is why he takes carisoprodol sometimes. Pregabalin has not helped. Iron panel normal. ? Will trial Requip 0.1 mg nightly for possible RLS, follow-up in response. ? Will need to follow-up with PCP within 1 week for further evaluation and management. #Type 2 diabetes #Peripheral neuropathy ? Hemoglobin A1c 8.3% on admission. Not at goal for patient, will need to follow-up with PCP. ? Continue home glipizide 10 mg twice daily, Jardiance 25 mg, Ozempic 0.25 mg weekly.. #CKD stage III A ? Creatinine 1., GFR 50. Stable. #Hypertension ? Resume home metoprolol tartrate 100 mg twice daily, hydrochlorothiazide 25 mg. Hold home amlodipine 10 mg as blood pressures initially soft during admission. #GERD ? Continue home PPI. #BPH ? Continue home tamsulosin. Exam Data for Last 24 hours Vital signs and Labs for Last 24 Hours: Temp Pulse Resp BP Pulse Ox O2 Del Method 97.9 F 85 16 150/90 H 96 Room Air 12/10/24 08:00 12/10/24 08:00 12/10/24 08:00 12/10/24 08:00 12/10/24 08:00 12/10/24 08:00 Laboratory Results - last 24 hr 12/09/24 12:04: Troponin I 0.03, Salicylates < 1.0 L, Acetaminophen < 10 L 12/09/24 13:57: Urine Color Yellow, Urine Appearance Clear, Urine pH 5.5, Ur Specific [place] 1.010, Urine Protein Negative, Urine Glucose (UA) 3+, Urine Ketones Negative, Urine Blood Negative, Urine Nitrate Negative, Urine Bilirubin Negative, Urine Urobilinogen 0.2, Ur Leukocyte Esterase Negative, Urine RBC Occasional, Urine WBC Occasional, Ur Squamous Epith Cells None, Urine Bacteria Trace, Urine Opiates Screen Negative, Urine Methadone Screen Negative, Ur Barbituates Screen Negative, Ur Phencyclidine Scrn Negative, Ur Amphetamines Screen Negative, U Benzodiazepines Scrn Negative, Urine Cocaine Screen Negative, U Marijuana (THC) Screen Negative 12/09/24 14:38: Troponin I 0.03 12/10/24 05:30: WBC 9.3, RBC 5.06, Hgb 15.5, Hct 46.4, MCV 91.7, MCH 30.6, MCHC 33.4, RDW 13.8, Plt Count 172, MPV 11.8 H, Neut % (Auto) 42.1, Lymph % (Auto) 42.9, [place] % (Auto) 11.0 H, Eos % (Auto) 3.0, Baso % (Auto) 0.8, Neut # (Auto) 3.9, Lymph # (Auto) 4.0, [place] # (Auto) 1.0, Eos # (Auto) 0.3, Baso # (Auto) 0.1, Sodium 139, Potassium 3.9, Chloride 102, Carbon Dioxide 29, Anion Gap 11.9, BUN 17 D, Creatinine 1.40 H, Estimated Creat Clear 82, Estimated GFR 50 L, Est GFR ( Amer) 60, Glucose 77 D, Hemoglobin A1c 8.3 H, Calcium 8.5, Magnesium 1.6, Iron 75, TIBC 416, Iron Saturation [id number], Ferritin 48.2, Total Bilirubin 0.4, AST 31, ALT 18, Alkaline Phosphatase 54, Total Protein 6.7, Albumin 3.8, Globulin 2.9, Albumin/Globulin Ratio 1.3, Vitamin B12 485, TSH 1.97 I & O for Last 24 hours: Intake & Output 12/07/24 12/08/24 12/09/24 12/10/24 23:59 23:59 23:59 23:59 Intake Total 1360 / 1600 1337.5 / 1337.5 Output Total 1400 / 1400 2200 / 2200 Balance -40 / 200 -862.5 / -862.5 Weight 126.87 kg 124.919 kg Constitutional Constitutional: no acute distress and obese *Routine HEENT Exam Head: Present normocephalic Eye: Present EOMI and PERRL ENT: Present mucous membranes moist *Routine Neck Exam Neck: Present supple; Absent lymphadenopathy *Routine Respiratory Exam Respiratory: Present CTA bilaterally *Routine Cardiovascular Exam Cardiovascular: Present RRR *Routine Abdominal Exam Abdominal: Present soft and normoactive bowel sounds; Absent tenderness *Routine Extremities Exam Extremities: Absent cyanosis, clubbing or edema *Routine Skin Exam Skin: Present warm; Absent rash *Routine Neurological Exam Neurological: Present alert and oriented X3 Results Data Completed and Pending Labs on day of discharge: Labs from last 24 hours 12/10/24 12/09/24 12/09/24 05:30 14:38 13:57 WBC 9.3 RBC 5.06 Hgb 15.5 Hct 46.4 MCV 91.7 MCH 30.6 MCHC 33.4 RDW 13.8 Plt Count 172 MPV 11.8 H Neut % (Auto) 42.1 Lymph % (Auto) 42.9 [place] % (Auto) 11.0 H Eos % (Auto) 3.0 Baso % (Auto) 0.8 Neut # (Auto) 3.9 Lymph # (Auto) 4.0 [place] # (Auto) 1.0 Eos # (Auto) 0.3 Baso # (Auto) 0.1 Sodium 139 Potassium 3.9 Chloride 102 Carbon Dioxide 29 Anion Gap 11.9 BUN 17 D Creatinine 1.40 H Estimated Creat Clear 82 Estimated GFR 50 L Est GFR ( Amer) 60 Glucose 77 D Hemoglobin A1c 8.3 H Calcium 8.5 Magnesium 1.6 Iron 75 TIBC 416 Iron Saturation 18.91186 Ferritin 48.2 Total Bilirubin 0.4 AST 31 ALT 18 Alkaline Phosphatase 54 Troponin I 0.03 Total Protein 6.7 Albumin 3.8 Globulin 2.9 Albumin/Globulin Ratio 1.3 Vitamin B12 485 TSH 1.97 Urine Color Yellow Urine Appearance Clear Urine pH 5.5 Ur Specific [place] 1.010 Urine Protein Negative Urine Glucose (UA) 3+ Urine Ketones Negative Urine Blood Negative Urine Nitrate Negative Urine Bilirubin Negative Urine Urobilinogen 0.2 Ur Leukocyte Esterase Negative Urine RBC Occasional Urine WBC Occasional Ur Squamous Epith Cells None Urine Bacteria Trace Salicylates Urine Opiates Screen Negative Urine Methadone Screen Negative Acetaminophen Ur Barbituates Screen Negative Ur Phencyclidine Scrn Negative Ur Amphetamines Screen Negative U Benzodiazepines Scrn Negative Urine Cocaine Screen Negative U Marijuana (THC) Screen Negative 12/09/24 12:04 WBC RBC Hgb Hct MCV MCH MCHC RDW Plt Count MPV Neut % (Auto) Lymph % (Auto) [place] % (Auto) Eos % (Auto) Baso % (Auto) Neut # (Auto) Lymph # (Auto) [place] # (Auto) Eos # (Auto) Baso # (Auto) Sodium Potassium Chloride Carbon Dioxide Anion Gap BUN Creatinine Estimated Creat Clear Estimated GFR Est GFR ( Amer) Glucose Hemoglobin A1c Calcium Magnesium Iron TIBC Iron Saturation Ferritin Total Bilirubin AST ALT Alkaline Phosphatase Troponin I 0.03 Total Protein Albumin Globulin Albumin/Globulin Ratio Vitamin B12 TSH Urine Color Urine Appearance Urine pH Ur Specific [place] Urine Protein Urine Glucose (UA) Urine Ketones Urine Blood Urine Nitrate Urine Bilirubin Urine Urobilinogen Ur Leukocyte Esterase Urine RBC Urine WBC Ur Squamous Epith Cells Urine Bacteria Salicylates < 1.0 L Urine Opiates Screen Urine Methadone Screen Acetaminophen < 10 L Ur Barbituates Screen Ur Phencyclidine Scrn Ur Amphetamines Screen U Benzodiazepines Scrn Urine Cocaine Screen U Marijuana (THC) Screen DS: Diagnosis Discharge Diagnosis (1) Accidental drug overdose: Status: Acute Code(s): T50.901A - Poisoning by unspecified drugs, medicaments and biological substances, accidental (unintentional), initial encounter Meds Home Medications and Allergies Home Medications ?Medication ?Instructions ?Recorded ?Confirmed ?Type semaglutide 0.25 mg or 0.5 mg (2 2 mg SQ WEEKLY 05/25/24 12/10/24 History mg/3 mL) subcutaneous pen injector (Ozempic) oxybutynin chloride 10 mg 10 mg PO DAILY 90 days #90 tabs 09/28/24 12/10/24 Rx tablet,extended release 24 hr tamsulosin 0.4 mg capsule (Flomax) 0.4 mg PO DAILY 90 days #90 caps 09/28/24 12/10/24 Rx amlodipine 10 mg tablet (Norvasc) 10 mg PO DAILY 12/03/24 12/10/24 History Held on 12/10/24. Instructions: Resume on 12/17/24. Your blood pressures were initially low with this medication. Please follow-up with your PCP to discuss restarting this medication. aspirin 81 mg tablet,delayed 81 mg PO DAILY 12/03/24 12/10/24 History release (Adult Low Dose Aspirin) atorvastatin 40 mg tablet (Lipitor) 40 mg PO DAILY 12/03/24 12/10/24 History fenofibrate 160 mg tablet 160 mg PO DAILY 12/03/24 12/10/24 History glipizide 10 mg tablet, extended 10 mg PO BID 12/03/24 12/10/24 History release 24 hr (Glucotrol XL) hydrochlorothiazide 25 mg tablet 25 mg PO DAILY 12/03/24 12/10/24 History lorazepam 2 mg tablet (Ativan) 2 mg PO QID PRN Anxiety 12/03/24 12/10/24 History magnesium oxide 400 mg PO BID 12/03/24 12/10/24 History metoprolol tartrate 100 mg tablet 100 mg PO BID 12/03/24 12/10/24 History (Lopressor) olopatadine 0.1 % eye drops 1 drp Eye-Both BID 12/03/24 12/10/24 History pantoprazole 40 mg granules 40 mg PO DAILY 12/03/24 12/10/24 History delayed-release for susp in packet (Protonix) pregabalin 150 mg capsule (Lyrica) 150 mg PO BID 12/03/24 12/10/24 History sertraline 50 mg tablet (Zoloft) 50 mg PO DAILY 12/03/24 12/10/24 History empagliflozin 25 mg tablet 25 mg PO DAILY 12/10/24 12/10/24 History (Jardiance) multivitamin 1 tab PO DAILY 12/10/24 12/10/24 History ropinirole 0.5 mg tablet 0.5 mg PO HS #30 tabs 12/10/24 Rx New Prescriptions to Start Prescriptions: ropinirole Jun Singh Allergies Allergy/AdvReac Type Severity Reaction Status Date / Time triethanolamine (From AdvReac Mild Rash Verified 12/03/24 13:40 Cerumenex) Discharge Plan Disposition Patient Disposition: Home, Self-Care Condition: Fair Follow up Plan Follow up with: Nusrat Lamb APRN [Primary Care Provider, Medical] - 12/14/24 1:30 pm Prescriptions/Medication Reconciliation: New ropinirole 0.5 mg tablet 0.5 mg PO HS Qty: 30 0RF Rx Instructions: administer 1-3 hours before bedtime Continued Ozempic 0.25 mg or 0.5 mg (2 mg/3 mL) pen injector 2 mg SQ WEEKLY olopatadine 0.1 % drops 1 drp Eye-Both BID Patient Comments: INSTILL 1 DROP IN BOTH EYES TWICE DAILY atorvastatin [Lipitor] 40 mg tablet 40 mg PO DAILY metoprolol tartrate [Lopressor] 100 mg tablet 100 mg PO BID glipizide [Glucotrol XL] 10 mg tablet extended release 24hr 10 mg PO BID aspirin [Adult Low Dose Aspirin] 81 mg tablet,delayed release (DR/EC) 81 mg PO DAILY lorazepam [Ativan] 2 mg tablet 2 mg PO QID PRN (Reason: Anxiety) hydrochlorothiazide 25 mg tablet 25 mg PO DAILY sertraline [Zoloft] 50 mg tablet 50 mg PO DAILY fenofibrate 160 mg tablet 160 mg PO DAILY pregabalin [Lyrica] 150 mg capsule 150 mg PO BID pantoprazole [Protonix] [address] for susp in packet 40 mg PO DAILY magnesium oxide 400 mg magnesium capsule 400 mg PO BID oxybutynin chloride 10 mg tablet extended release 24hr 10 mg PO DAILY 90 Days Qty: 90 1RF tamsulosin [Flomax] 0.4 mg capsule 0.4 mg PO DAILY 90 Days Qty: 90 1RF Rx Instructions: Take 1/2 hour after same meal daily. Jardiance 25 mg Tablet 25 mg PO DAILY multivitamin Tablet 1 tab PO DAILY Held amlodipine [Norvasc] 10 mg tablet 10 mg PO DAILY Hold Instructions: Resume on 12/17/24. Your blood pressures were initially low with this medication. Please follow-up with your PCP to discuss restarting this medication. Discontinued tizanidine [Zanaflex] 4 mg capsule 4 mg PO Q8H PRN (Reason: Spasms) Other Ambulatory Orders: Rehab Eval, OP (Routine) Timeframe: 1 Month Facility: [facility] - Location: Physical Therapy Ordered By: Jun Singh Problem Reconciliation Problems Reviewed?: Yes Patient Discharge Instructions Patient Instructions: DI for Accidental Ingestion in Adults, DI for Altered Mental Status, Metabolic Encephalopathy Print Language: Indonesian Providers Primary Care Provider: Nusrat Lamb Admit Provider: Jun Singh Attending Provider: Jun Singh
[2024-12-10 11:55] LABS: Folate 9.01 ng/mL
== END 2024-12-10 12:05 | disposition home or self-care (01) ==
LOC: ER 10:51 → 2ND 10:55
PROVIDERS: Admitting Provider Student in an Organized Health Care Education/Training Program; Emergency Provider Student in an Organized Health Care Education/Training Program; PCP Nurse Practitioner; Visit Provider Student in an Organized Health Care Education/Training Program
DX: T50.901A Poisoning by unspecified drugs, medicaments and biological substances, accidental (unintentional), initial encounter (principal); G92.8 Other toxic encephalopathy; E11.42 Type 2 diabetes mellitus with diabetic polyneuropathy; E11.22 Type 2 diabetes mellitus with diabetic chronic kidney disease; I12.9 Hypertensive chronic kidney disease with stage 1 through stage 4 chronic kidney disease, or unspecified chronic kidney disease; N18.31 Chronic kidney disease, stage 3a; K21.9 Gastro-esophageal reflux disease without esophagitis; N40.0 Benign prostatic hyperplasia without lower urinary tract symptoms; E66.9 Obesity, unspecified; F41.9 Anxiety disorder, unspecified; F32.A Depression, unspecified; E78.5 Hyperlipidemia, unspecified; Z90.49 Acquired absence of other specified parts of digestive tract; Z68.39 Body mass index [BMI] 39.0-39.9, adult; Z87.891 Personal history of nicotine dependence; Z88.8 Allergy status to other drugs, medicaments and biological substances; Z79.85 Long-term (current) use of injectable non-insulin antidiabetic drugs; Z79.84 Long term (current) use of oral hypoglycemic drugs; Z79.899 Other long term (current) drug therapy
CPT/HCPCS: 36415; 70450; 70496; 70498; 71045; 80053; 80061; 80307; 80320; 80329; 81001; 82140; 82550; 82607; 82728; 82746; 82803; 83036; 83540; 83550; 83735; 84443; 84484; 85025; 85610; 85730; 87040; 93005; 96361; 96365; 96366; 96372; 97110; 97162; 97166; 99285; G0378; J1650; J3475; J7120; Q9967